=== PATIENT | female | born 1960 | race Caucasian/White ===

== ENCOUNTER → 2017-11-28 | Outpatient (CLI) | payer OTHER ==
[~2017-11-28] MED LIST: AZIT250T PO; CMBIN INH; EPI PEN; LAMO25TA PO; LITH600C PO; NAPR-1169 PO; POTA20TA16 PO; PRED20TA PO
--- NOTE | 2017-12-01 11:07 | PULMONARY FUNCTION TEST ---
Spirometry shows a normal forced vital capacity and FEV1 but with a mildly decreased FEV1/FVC ratio. This would be compatible with mild obstruction. Repeat study done following bronchodilator showed mild improvement in forced vital capacity and FEV1. Lung volumes show an increased FRC, RV and TLC consistent with obstruction and air trapping. Diffusion is normal at 82%.
== END | disposition home or self-care (01) ==
LOC: C.RC 09:09
PROVIDERS: ATTEND Internal Medicine Pulmonary Disease
DX: J44.9 Chronic obstructive pulmonary disease, unspecified (principal)

== ENCOUNTER → 2017-11-28 | Outpatient (CLI) | payer OTHER | END | disposition home or self-care (01) | LOC: C.LAB1850 11:48 | PROVIDERS: ATTEND Internal Medicine Pulmonary Disease | DX: R59.0 Localized enlarged lymph nodes (principal); R91.1 Solitary pulmonary nodule ==

== ENCOUNTER → 2018-01-08 | Outpatient (CLI) | payer OTHER ==
[~2018-01-08] MED LIST changes: +OPTIRAY 320 IV PRN; +POTA-639 PO; -POTA20TA16 PO
--- NOTE | 2018-01-08 13:13 | DIAGNOSTIC IMAGING REPORT ---
CT (CHEST) THORAX WITH CLINICAL HISTORY: 57 years-old Female presenting with R91.1 Solitary lung nodule R59.0 Mediastinal adenopathy R59.0 Karen. TECHNIQUE: Multidetector CT imaging of the chest was performed after the administration of intravenous contrast. IV contrast: 94 mL of Optiray 320. A dose lowering technique was used consistent with the principles of ALARA (as low as reasonably achievable). COMPARISON: Abdomen and pelvis CT from 10/10/2017. CT DOSE (mGy.cm): The estimated cumulative dose is 169.16 mGycm. FINDINGS: Formula Technician topogram: Unremarkable. On soft tissue windows, normal thyroid and thoracic inlet. Mildly prominent subcentimeter mediastinal lymph nodes in the precarinal region, likely reactive. No pathologically enlarged lymph nodes. Atherosclerosis of the aorta. Normal heart size. No pericardial or pleural effusion. Upper abdomen normal. On lung windows, subpleural polygonal solid 5 mm nodule in the lateral basal segment of the right lower lobe (series 4 image 211), unchanged. Minimal mosaic attenuation suggested at the lung apices, likely indicating small airways disease. No other focal infiltrate or nodule. Fat-containing Bochdalek hernias greater on the right. Central airways patent. On bone windows, degenerative changes of the spine. IMPRESSION: 1. Stable solid subpleural 5 mm nodule in the right lower lobe. Follow-up per Chun Society 2017 recommendations below. No other pulmonary nodule. No acute intrathoracic pathology. Please refer to below summary of Fleischner Society 2017 recommendations for follow-up of incidental CT nodules (H Oly et al. Guidelines for management of incidental pulmonary nodules detected on CT images: From the Fleischner Society 2017. Radiology 2017; 284: 228-243.) SOLID NODULES Single nodule; size < 6 mm * Low risk patients: No routine follow-up * High risk patients: Optional CT at 12 months Single nodule; size 6-8 mm * Low risk patients: CT at 6-12 months, then consider CT at 18-24 months * High risk patients: CT at 6-12 months, then at 18-24 months Single nodule; size > 8 mm * Either low or high risk patients: Considered CT at 3 months, PET/CT, or tissue sampling Multiple nodules; size < 6 mm * Low risk patients: No routine follow up * High risk patients: Optional CT at 12 months Multiple nodules; size 6-8 mm * Low risk patients: CT at 3-6 months, then consider CT at 18-24 months * High risk patients: CT at 3-6 months, then at 18-24 months Multiple nodules; size > 8 mm * Low risk patients: CT at 3-6 months, then consider at 18-24 months * High risk patients: CT at 3-6 months, then at 18-24 months SUBSOLID NODULES Single ground-glass nodule * Nodule size < 6 mm: No routine follow-up * Nodule size > or = 6 mm: CT at 6-12 months to confirm persistence, then CT every 2 years until 5 years Single part-solid nodule * Nodule size < 6 mm: No routine follow-up * Nodules size > or = 6 mm: CT at 3-6 months to confirm persistence. If unchanged and solid component remains < 6 mm, annual CT should be performed for 5 years Multiple nodules * Nodule size < 6 mm: CT at 3-6 months. If stable, consider CT at 2 and 4 years. * Nodules size > or = 6 mm: CT at 3-6 months. Subsequent management based on the most suspicious nodule(s) NOTE: 1) These guidelines apply to incidental nodules. These guidelines do NOT apply to patients younger than 35 years, immunocompromised patients, or patients with cancer. 2) Risk categories: * Low risk patients: Minimal or absent history of smoking and/or other known risk factors * High risk patients: History of smoking, exposure to other carcinogens, emphysema, fibrosis, upper lobe location, family history of lung cancer, etc. 2) If a nodule up to 8 mm is partly solid or is ground glass, further follow-up is required after 24 months to exclude possible slow growing adenocarcinoma. Electronically signed by: Sohail Harmon M.D. 01/08/2018 1:11 PM Dictated Date/Time: 01/08/2018 1:05 PM
== END | disposition home or self-care (01) ==
LOC: C.CTS 12:42
PROVIDERS: ATTEND Internal Medicine Pulmonary Disease
DX: R59.0 Localized enlarged lymph nodes (principal); R91.1 Solitary pulmonary nodule

== ENCOUNTER 2023-10-05 11:13 | Observation (INO) ==
--- NOTE | 2023-10-05 12:13 | CT Scan Report ---
CT SCAN OF THE BRAIN WITHOUT IV CONTRAST CLINICAL HISTORY: Ambulatory dysfunction. Change in mental status. COMPARISON STUDY: No priors. TECHNIQUE: Unenhanced axial CT scan of the brain is performed from the vertex to the skull base. A do se lowering technique was utilized adhering to the principles of ALARA. CT DOSE: 625.8 mGy.cm FINDINGS: Brain parenchyma: There is age-related involutional change noting minimal microangiopathic disease. T here is no hemorrhage, mass effect, or evidence of acute territorial ischemia by CT criteria. Oakley-wh ite matter differentiation is preserved. No extra-axial fluid collection is seen. Ventricles, sulci, cisterns: Prominent secondary to involutional change. Intracranial vasculature: There is atherosclerotic calcification of the cavernous carotid arteries. Calvarium: Unremarkable. Sinuses and mastoids: The visualized paranasal sinuses are clear. The mastoid air cells are well pneu matized. Orbits: The bony orbits are grossly intact. IMPRESSION: There is no hemorrhage, mass effect, or evidence of acute territorial ischemia by CT man leos. ACT 112: Negative or not required by law. Electronically signed by: Dagoberto Johns M.D. 10/05/2023 12:12 PM
--- NOTE | 2023-10-05 12:17 | XRay Report ---
XR chest 1V not portable HISTORY: weakness COMPARISON: Chest CT 03/05/2019. Chest x-ray 02/24/2007. FINDINGS: No pneumothorax. No pleural effusions. The heart is normal in size. Small left basilar line ar densities persist and favor subsegmental atelectasis or scarring. Otherwise, no new focal lung con solidations to suggest a pneumonia. No evidence for pulmonary edema. Emphysema again noted. No acute fractures. IMPRESSION: No significant change compared to the prior study. No acute process. Emphysema again noted. ACT 112: Negative or not required by law. Electronically signed by: Viral Barr M.D. 10/05/2023 12:16 PM
[2023-10-05 12:27] LABS: Basophils # (auto) 0.09 K/uL (0.00-0.20); Basophils % (auto) 1.2 %; Eosinophils # (auto) 0.34 K/uL (0.00-0.50); Eosinophils % (auto) 4.5 %; Hematocrit (blood only) 42.8 % (37.0-47.0); Hemoglobin 15.2 g/dl (12.0-16.0); Immature Granulocytes # (auto) 0.01 K/uL (0.01-0.20); Immature Granulocytes % (auto) 0.1 %; Lymphocytes # (auto) 1.98 K/uL (1.20-3.40); Lymphocytes % (auto) 26.2 %; Mean Corpuscular Hemoglobin 34.8 pg (25.0-34.0); Mean Corpuscular Hgb Conc 35.5 g/dL (32.0-36.0); Mean Corpuscular Volume 97.9 fL (80.0-100.0); Mean Platelet Volume 11.1 fL (9.4-12.4); Monocytes # (auto) 0.58 K/uL (0.11-0.59); Monocytes % (auto) 7.7 %; Neutrophils # (auto) 4.56 K/uL (1.40-6.50); Neutrophils % (auto) 60.3 %; Platelet Count 234 K/uL (130-400); RDW Coefficient of Variation 12.7 % (11.5-14.5); RDW Standard Deviation 45.8 fL (36.4-46.3); Red Blood Count 4.37 M/uL (4.20-5.40); White Blood Count 7.56 K/ul (4.8-10.8)
[2023-10-05 12:40] LABS: Alanine Aminotransferase 11 U/L (7-52); Albumin Level 4.5 gm/dl (3.4-5.0); Alkaline Phosphatase 54 U/L (34-104); Anion Gap 6 (3-11); Aspartate Aminotransferase 18 U/L (13-39); BUN Creatinine Ratio 15.7 (10-20); Bilirubin,Total 0.5 mg/dl (0.2-1.0); Blood Urea Nitrogen 11 mg/dl (6-23); Calcium 9.6 mg/dl (8.6-10.3); Carbon Dioxide 25 mmol/L (21-32); Chloride 102 mmol/L (98-107); Est GFR (African American) 108.4 ml/min; Est GFR (Non-African American) 93.5 ml/min; Globulin 2.3 gm/dl (2.5-4.0); Glucose 151 mg/dl (70-99(Fasting)); Magnesium 1.9 mg/dl (1.7-2.4); Potassium 3.5 mmol/L (3.5-5.1); Sodium 133 mmol/L (136-145); Total Protein 6.8 gm/dl (6.0-8.3)
[2023-10-05 12:47] LABS: Troponin I High Sensitivity 4.1 pg/ml (0-14)
[2023-10-05 12:52] LABS: Prothrombin Time 10.9 Seconds (9.0-12.0)
[2023-10-05 12:57] LABS: Thyroid Stimulating Hormone 0.967 uIu/ml (0.300-4.500)
--- NOTE | 2023-10-05 12:57 | Electrocardiogram Report ---
Test Reason : Blood Pressure : / mmHG Vent. Rate : 085 BPM Atrial Rate : 085 BPM P-R Int : 158 ms QRS Dur : 082 ms QT Int : 366 ms P-R-T Axes : 078 032 056 degrees QTc Int : 435 ms Normal sinus rhythm Incomplete right bundle branch block Borderline ECG When compared with ECG of 14-MAY-2019 13:14, No significant change was found Confirmed by Serjio Mullins ([id number]) on 10/05/2023 12:56:41 PM Referred By: Confirmed By:Serjio Mullins
[2023-10-05 14:18] LABS: Adenovirus PCR Not Detected (NotDetected); Bordetella parapertussis PCR Not Detected (NotDetected); Bordetella pertussis PCR Not Detected (NotDetected); Chlamydia pneumoniae PCR Not Detected (NotDetected); Coronavirus 229E PCR Not Detected (NotDetected); Coronavirus CoV-2 (COVID19)PCR Not Detected (NotDetected); Coronavirus HKU1 PCR Not Detected (NotDetected); Coronavirus NL63 PCR Not Detected (NotDetected); Coronavirus OC43PCR Not Detected (NotDetected); Human Metapneumovirus PCR Not Detected (NotDetected); Influenza A PCR Not Detected (NotDetected); Influenza B PCR Not Detected (NotDetected); Mycoplasma pneumoniae PCR Not Detected (NotDetected); Parainfluenza Virus 1 PCR Not Detected (NotDetected); Parainfluenza Virus 2 PCR Not Detected (NotDetected); Parainfluenza Virus 3 PCR Not Detected (NotDetected); Parainfluenza Virus 4 PCR Not Detected (NotDetected); Respiratory Syncytial VirusPCR Not Detected (NotDetected); Rhinovirus/Enterovirus PCR Not Detected (NotDetected)
--- NOTE | 2023-10-05 14:37 | Emergency Department Note ---
Impression & Plan Acute confusion ED Provider Note HISTORY OF PRESENT ILLNESS: Patient is a 63-year-old female presenting with intermittent episodes of confusion. Family helps provide history. Reports that for the last week and a half the patient has been having episodes in which she is significantly confused and talking to people that are not there. Family reports that she has been very off balance and stumbling throughout the house with these episodes. She was diagnosed with a urinary tract infection based on her symptomology and her PCP called in prescription for Keflex 10 days ago which she has completed. She had her lithium dosing adjusted 2 months ago and reportedly has had decline since then but the last week and a half has been worse. She denies any recent falls in the last 2 weeks. Denies any chest pain or shortness of breath. No fevers. Denies any abdominal pain, nausea or vomiting. No recent sick contact exposures. Family reports that the patient "just does not seem right." Patient reports that she sees people who are not there and seems to talk to them intermittently. She denies these visual hallucinations being threatening. ROS: as above PHYSICAL EXAM: Constitutional: Patient appears in no acute distress. HENT: Head: Normocephalic and atraumatic. Eyes: EOMI, PERRL Mouth/Throat: Mucous membranes moist. Neck: Trachea midline. Neck supple. Cardiovascular: RRR, No murmurs, rubs or gallops. Intact distal pulses. Pulmonary/Chest: No respiratory distress. Breath sounds clear and equal bilaterally. No wheezes or rales. Abdominal: Abdomen soft, no tenderness, rebound or guarding. Musculoskeletal: No edema, tenderness or deformity noted. Skin: Warm and dry. No rash, erythema, pallor or cyanosis Psychiatric: Appropriate mood and affect for situation. Neurological: Alert and keenly responsive. CN II-XII grossly intact, moving all extremities equally and fully. MDM: - Vitals signs stable. - History obtained via patient and patient's family. Patient presents with intermittent episodes of confusion. Family reports for the last week and a half the patient has been having episodes in which she is more confused and talking to people who are not there. Reports patient is very off balance and stumbling throughout the house with these episodes. Patient was recently treated for a UTI. No recent falls in the last 2 weeks. - Chronic conditions affecting care: ulcerative colitis; bipolar disorder - Differential diagnoses include, but are not limited to: UTI; pneumonia; CVA; intracranial hemorrhage; medication side effect - Order placed for continuous cardiac monitoring. At this time, monitor showed rate of 71 bpm with normal sinus rhythm, per my interpretation. - External medical records reviewed. - EKG interpreted by myself showed normal sinus rhythm. Rate 84 bpm. QTc 435. No acute ischemic changes. - Laboratory workup interpreted by myself showed normal WBC; stable electrolytes; normal lactate; normal troponin; normal ammonia; normal TSH; normal lithium level - CXR negative for pneumonia, per my interpretation. - UA negative for infection, but noted to have ketonuria. - Viral respiratory panel negative - CT head wo contras negative for acute intracranial pathology - UDS added. - Family expresses concern about patient's frequent and recurrent episodes of confusion and talking to people who are not there. - Discussion was had with professional healthcare representative about patient's case and need for observation - Hospitalist consulted for admission - Patient admitted to [facility] service for further evaluation and management. ASSESSMENT AND PLAN: Diagnosis: confusion Plan: admit Past Med/Surg History Medical History Bipolar disorder COPD (chronic obstructive pulmonary disease) inhaler prn Fibromyalgia IBS (irritable bowel syndrome) Memory changes Spinal stenosis Tardive dyskinesia Ulcerative colitis Surgical History History of bunionectomy of right great toe History of colonoscopy History of tonsillectomy History of tooth extraction all teeth S/P appendectomy S/P hysterectomy ADA BSO Family History Father Lung cancer Family history of diabetes mellitus Grandfather (Paternal) Family history of diabetes mellitus Other No family history of adverse response to anesthesia Social History Smoking Status: Current every day smoker Cigarettes Per Day: 20; Second Hand Exposure: Yes; Do You Dip or Chew Tobacco: No; Hx Alcohol Use: No Hx Substance Use: Yes Substance Use Type Other:: marijuana > 2-3 times per week Preferred Language: Icelandic Communication Ability: Effective Tie Inspector Required: No Beliefs That Will Affect Care: None Current Living Situation: Spouse Feels Safe at Home: Yes Assistive Devices: Denture - Upper and Denture - Lower Allergies Allergies Allergy/AdvReac Type Severity Reaction Status Date / Time cephalexin Allergy Mild "itchy Verified 10/05/23 14:26 bumps" clonazepam AdvReac Mild BLACKOUTS Verified 10/05/23 14:26 bee Allergy Severe Anaphylaxis Uncoded 10/05/23 14:26 Home Meds Home Medications Medication Instructions Recorded Confirmed albuterol sulfate 90 mcg/actuation 2 puff inhalation Q4 PRN Wheezing 10/05/23 10/05/23 aerosol inhaler bupropion HCl 300 mg 24 hr tablet, 300 mg PO DAILY 10/05/23 10/05/23 extended release fluticasone fur. 100 mcg-umeclid 1 ea inhalation DAILY 10/05/23 10/05/23 62.5 mcg-vilant 25 mcg inhalat.powder (Trelegy Ellipta) ketoconazole 2 % shampoo 1 applic topical DIRECTED 10/05/23 10/05/23 lithium carbonate 300 mg capsule 300 mg PO TID 10/05/23 10/05/23 lorazepam 0.5 mg tablet 0.5 mg PO TID PRN Anxiety 10/05/23 10/05/23 propranolol 10 mg tablet 10 mg PO BID 10/05/23 10/05/23 sennosides 8.6 mg-docusate sodium 2 - 3 tab PO HS PRN Constipation 10/05/23 10/05/23 50 mg tablet (Senexon-S) trazodone 50 mg tablet 50 mg PO HS 10/05/23 10/05/23 Results & Data (ED) Vital Signs Vital Signs - 24 hr 10/05/23 11:13 10/05/23 11:31 10/05/23 13:30 Temperature 36.5 C Temperature Source Temporal Artery Scan Pulse Rate 88 76 Pulse Rate [Apical] Pulse Rhythm Regular Pulse Rhythm [Apical] Pulse Strength [Apical] Respiratory Rate 20 20 Respiratory Effort / Characteristics Respiratory Depth Respiratory Pattern Blood Pressure 121/72 Blood Pressure [Left Arm] Blood Pressure Mean 88 Blood Pressure Mean [Left Arm] Blood Pressure Position [Left Arm] Pulse Oximetry 97 98 96 Oxygen Delivery Method Room Air Room Air Room Air Sepsis Recent Fever Within 48 Hours No Sepsis New/Unexplained Change in Mental Status N/A Sepsis Action Taken by Nursing No Action Required 10/05/23 13:30 10/05/23 16:11 Temperature Temperature Source Pulse Rate 71 Pulse Rate [Apical] 78 Pulse Rhythm Pulse Rhythm [Apical] Regular Pulse Strength [Apical] Normal Respiratory Rate 20 Respiratory Effort / Characteristics Non-Labored Spontaneous Respiratory Depth Normal Respiratory Pattern Regular Blood Pressure Blood Pressure [Left Arm] 131/75 Blood Pressure Mean Blood Pressure Mean [Left Arm] 93 Blood Pressure Position [Left Arm] Sitting Pulse Oximetry 97 Oxygen Delivery Method Room Air Sepsis Recent Fever Within 48 Hours Sepsis New/Unexplained Change in Mental Status Sepsis Action Taken by Nursing Laboratory Data 10/05/23 12:00 10/05/23 12:00 Lab Results 10/05/23 10/05/23 10/05/23 Range/Units 12:00 14:18 14:56 WBC 7.56 (4.8-10.8) K/ul RBC 4.37 (4.20-5.40) M/uL Hgb 15.2 (12.0-16.0) g/dl Hct 42.8 (37.0-47.0) % MCV 97.9 (80.0-100.0) fL MCH 34.8 H (25.0-34.0) pg MCHC 35.5 (32.0-36.0) g/dL RDW Std Deviation 45.8 (36.4-46.3) fL RDW Coeff of Celi 12.7 (11.5-14.5) % Plt Count 234 (130-400) K/uL MPV 11.1 (9.4-12.4) fL Immature Gran % (Auto) 0.1 % Neut % (Auto) 60.3 % Lymph % (Auto) 26.2 % Kane % (Auto) 7.7 % Eos % (Auto) 4.5 % Baso % (Auto) 1.2 % Neut # (Auto) 4.56 (1.40-6.50) K/uL Lymph # (Auto) 1.98 (1.20-3.40) K/uL Kane # (Auto) 0.58 (0.11-0.59) K/uL Eos # (Auto) 0.34 (0.00-0.50) K/uL Baso # (Auto) 0.09 (0.00-0.20) K/uL Immature Gran # (Auto) 0.01 (0.01-0.20) K/uL PT 10.9 (9.0-12.0) Seconds INR 1.0 (0.9-1.1) Sodium 133 L (136-145) mmol/L Potassium 3.5 (3.5-5.1) mmol/L Chloride 102 (98-107) mmol/L Carbon Dioxide 25 (21-32) mmol/L Anion Gap 6 (3-11) BUN 11 (6-23) mg/dl Creatinine 0.70 (0.6-1.2) mg/dl Est Cr Clr Drug Dosing Not Reportable Est GFR ( Amer) 108.4 ml/min Est GFR (Non-Af Amer) 93.5 ml/min BUN/Creatinine Ratio 15.7 (10-20) Glucose 151 H (70-99(Fasting)) mg/dl Lactate 1.0 (0.4-2.0) mmol/L Calcium 9.6 (8.6-10.3) mg/dl Magnesium 1.9 (1.7-2.4) mg/dl Total Bilirubin 0.5 (0.2-1.0) mg/dl AST 18 (13-39) U/L ALT 11 (7-52) U/L Alkaline Phosphatase 54 (34-104) U/L Ammonia 29.0 (18-72) umol/L Troponin I High Sens 4.1 (0-14) pg/ml Total Protein 6.8 (6.0-8.3) gm/dl Albumin 4.5 (3.4-5.0) gm/dl Globulin 2.3 L (2.5-4.0) gm/dl Albumin/Globulin Ratio 2.0 (0.9-2) TSH 0.967 (0.300-4.500) uIu/ml Urine Color Yellow Urine Appearance Clear (Clear) Urine pH 6.5 (4.5-7.5) Ur Specific [place] 1.012 (1.000-1.030) Urine Protein Negative (Negative) Urine Glucose (UA) Negative (Negative) Urine Ketones Trace H (Negative) Urine Blood Negative (Negative) Urine Nitrite Negative (Negative) Urine Bilirubin Negative (Negative) Urine Urobilinogen Negative (Negative) Ur Leukocyte Esterase Negative (Negative) [place] 1.0 (0.6-1.2) mmol/L Adenovirus (PCR) Not Detected (NotDetected) B. pertussis DNA (PCR) Not Detected (NotDetected) B.parapertussis DNA PCR Not Detected (NotDetected) C. pneumoniae DNA (PCR) Not Detected (NotDetected) Coronavirus OC43 (PCR) Not Detected (NotDetected) Coronavirus HKU1 (PCR) Not Detected (NotDetected) Coronavirus 229E (PCR) Not Detected (NotDetected) SARS-CoV-2 (PCR) Not Detected (NotDetected) Coronavirus NL63 (PCR) Not Detected (NotDetected) Human Metapneumovir PCR Not Detected (NotDetected) Influenza Type A (PCR) Not Detected (NotDetected) Influenza Type B (PCR) Not Detected (NotDetected) M. pneumoniae (PCR) Not Detected (NotDetected) Parainfluenza 1 (PCR) Not Detected (NotDetected) Parainfluenza 2 (PCR) Not Detected (NotDetected) Parainfluenza 3 (PCR) Not Detected (NotDetected) Parainfluenza 4 (PCR) Not Detected (NotDetected) RSV (PCR) Not Detected (NotDetected) Entero/Rhino (PCR) Not Detected (NotDetected) Imaging Data Radiologist's Impression: Chest X-Ray 10/05/23 11:18 XR chest 1V not portable HISTORY: weakness COMPARISON: Chest CT 03/05/2019. Chest x-ray 02/24/2007. FINDINGS: No pneumothorax. No pleural effusions. The heart is normal in size. Small left basilar linear densities persist and favor subsegmental atelectasis or scarring. Otherwise, no new focal lung consolidations to suggest a pneumonia. No evidence for pulmonary edema. Emphysema again noted. No acute fractures. IMPRESSION: No significant change compared to the prior study. No acute process. Emphysema again noted. ACT 112: Negative or not required by law. Electronically signed by: Viral Barr M.D. 10/05/2023 12:[address] 10/05/23 11:18 CT SCAN OF THE BRAIN WITHOUT IV CONTRAST CLINICAL HISTORY: Ambulatory dysfunction. Change in mental status. COMPARISON STUDY: No priors. TECHNIQUE: Unenhanced axial CT scan of the brain is performed from the vertex to the skull base. A dose lowering technique was utilized adhering to the principles of ALARA. CT DOSE: 625.8 mGy.cm FINDINGS: Brain parenchyma: There is age-related involutional change noting minimal microangiopathic disease. There is no hemorrhage, mass effect, or evidence of acute territorial ischemia by CT criteria. Oakley-white matter differentiation is preserved. No extra-axial fluid collection is seen. Ventricles, sulci, cisterns: Prominent secondary to involutional change. Intracranial vasculature: There is atherosclerotic calcification of the cavernous carotid arteries. Calvarium: Unremarkable. Sinuses and mastoids: The visualized paranasal sinuses are clear. The mastoid air cells are well pneumatized. Orbits: The bony orbits are grossly intact. IMPRESSION: There is no hemorrhage, mass effect, or evidence of acute territorial ischemia by CT criteria. ACT 112: Negative or not required by law. Electronically signed by: Dagoberto Johns M.D. 10/05/2023 12:12 PM Discharge Plan Visit Data Chief Complaint: Altered Mental Status Stated Complaint: UNSTABLE, CONFUSION ED Provider: Ana Luisa Higginbotham Discharge Problem: Acute confusion Forms Stand Alone Forms: My [facility] Prescriptions Prescriptions: No Action ketoconazole 2 % shampoo 1 applic TOPICAL DIRECTED trazodone 50 mg tablet 50 mg PO HS lorazepam 0.5 mg tablet 0.5 mg PO TID PRN (Reason: Anxiety) lithium carbonate 300 mg capsule 300 mg PO TID albuterol sulfate 90 mcg/actuation HFA aerosol inhaler 2 puff INHALATION Q4 PRN (Reason: Wheezing) bupropion HCl 300 mg tablet extended release 24 hr 300 mg PO DAILY Trelegy Ellipta 100-62.5-25 mcg blister with device 1 ea INHALATION DAILY propranolol 10 mg tablet 10 mg PO BID sennosides-docusate sodium [Senexon-S] 8.6-50 mg tablet 2 - 3 tab PO HS PRN (Reason: Constipation) Referrals Referrals: Vic Carl PA-C [Primary Care Provider] -
[2023-10-05 14:51] LABS: Appearance Urine Clear (Clear); Bilirubin Urine Negative (Negative); Blood Urine Negative (Negative); Color Urine Yellow; Glucose Urine UA Negative (Negative); Ketones Urine Trace (Negative); Leukocyte Esterase Urine Negative (Negative); Nitrite Urine Negative (Negative); Protein Urine Negative (Negative); Specific Gravity Urine 1.012 (1.000-1.030); Urobilinogen Urine Negative (Negative); pH Urine 6.5 (4.5-7.5)
--- NOTE | 2023-10-05 16:13 | History & Physical Report ---
Date of Service October 05, 2023 Assessment & Plan (1) Episodic confusion: Plan: This is a 63 y/o female with bipolar disorder, PTSD, mild COPD, fibromyalgia, and other history as outlined who presented to the ED today for evaluation of episodes of confusion and gait imbalance over the last 8 weeks but worsening since a fall on two weeks ago. Pt reports her lithium dose was adjusted two months ago - level today WNL. She was recently treated for UTI with 10 day course of cephalexin and course of prednisone for scalp itching but neither of these medication courses seem to correspond with onset of patient's symptoms. Initial work-up in the ED including ammonia level, TSH, CT head, UA, CBC, BMP was negative for potential etiology. Lyme testing pending. Discussed with ED provider addition of urine tox screen in view of history of substance use, although pt denies today. - Observe on med telemetry - MRI brain to r/o prior CVA/vascular dementia as cause of symptoms - Consult neurology - pt saw [facility] [place] for memory issues - Consult psychiatry for recommendations on pt's current regimen, potential contribution of known psychiatric conditions to current symptoms - Check B12, B1, B6, folate levels - Add thiamine supplement empirically - Blood cultures to complete infectious work-up (2) Gait disturbance: Plan: Fall precautions PT/OT evaluations (3) Bipolar disorder: Plan: Continue outpatient meds for now - psych consult pending (4) COPD (chronic obstructive pulmonary disease): Plan: Chronic, stable - continue inhaler Plan Pt seen and reviewed with collaborating physician, Dr. Banerjee. Plan of care discussed and as outlined above. Code Status: Full code DVT Prophylaxis: Ridge Barron PA-C History of Present Illness Chief Complaint: Episodes of confusion Primary Care Provider: Vic Carl This is a 63 y/o female with bipolar disorder, PTSD, mild COPD, fibromyalgia, and other history as outlined who presented to the ED today for evaluation of episodes of confusion and gait imbalance over the last 8 weeks but worsening since a fall on two weeks ago. History obtained from patient and fiance at the bedside. About eight weeks ago, pt started with episodes of confusion and gait imbalance. Pt reports these feel similar to prior episodes of robert but her fiance states that they are different in that during manic episodes, she is typically still coherent, can answer questions, and does not have trouble with her balance. Pt reports having no memory of the current episodes of confusion that she has been having, so she is not entirely sure of what is occurring. Episodes seem to start mid to late morning and last till later afternoon or dinner before resolving. Until the last few weeks, they only happened every 1-2 weeks, but since she fell on [place], the episodes have been increasing in frequency and severity. She had an episode yesterday that was particularly severe. This morning, her fiance's mom came to check on her around 10 am, and she was once again confused to they brought her to the ED for evaluation. Today's episode seemed to clear up around 1-2 pm. Her fiance describes that pt will be doing something and then won't remember what she's doing, will stare off into space, become off balance, and will be unable to answer a question coherently. At times, they have also seen her talking to people who are not there although she denies overt visual hallucinations to me. She reports her lithium dose was adjust about two months ago. She also notes suprapubic discomfort and dysuria about two weeks ago - she was treated empirically with a 10 day course of Keflex with improvement in the urinary symptoms. She was also recently on a course of prednisone for scalp itching, which she finished three days ago. She reports rare EtOH, denies recreational substances or use of medical marijuana. She admits to a poor diet, preferring sweets and fast food, minimal consumption of fruits and vegetables. Allergies Allergy/AdvReac Type Severity Reaction Status Date / Time cephalexin Allergy Mild "itchy Verified 10/05/23 14:26 bumps" clonazepam AdvReac Mild BLACKOUTS Verified 10/05/23 14:26 bee Allergy Severe Anaphylaxis Uncoded 10/05/23 14:26 Home Medications Medication Instructions Recorded Confirmed Type albuterol sulfate 90 mcg/actuation 2 puff inhalation Q4 PRN Wheezing 10/05/23 10/05/23 History aerosol inhaler bupropion HCl 300 mg 24 hr tablet, 300 mg PO DAILY 10/05/23 10/05/23 History extended release fluticasone fur. 100 mcg-umeclid 1 ea inhalation DAILY 10/05/23 10/05/23 History 62.5 mcg-vilant 25 mcg inhalat.powder (Trelegy Ellipta) ketoconazole 2 % shampoo 1 applic topical DIRECTED 10/05/23 10/05/23 History lithium carbonate 300 mg capsule 300 mg PO TID 10/05/23 10/05/23 History lorazepam 0.5 mg tablet 0.5 mg PO TID PRN Anxiety 10/05/23 10/05/23 History propranolol 10 mg tablet 10 mg PO BID 10/05/23 10/05/23 History sennosides 8.6 mg-docusate sodium 2 - 3 tab PO HS PRN Constipation 10/05/23 10/05/23 History 50 mg tablet (Senexon-S) trazodone 50 mg tablet 50 mg PO HS 10/05/23 10/05/23 History Past Med/Surg History Medical History (Updated 10/05/23 @ 20:41 by Ivelisse Barron PA-C) Solitary lung nodule Ulcerative colitis Fibromyalgia Tardive dyskinesia Memory changes IBS (irritable bowel syndrome) COPD (chronic obstructive pulmonary disease) inhaler prn Bipolar disorder Spinal stenosis Surgical History History of bunionectomy of right great toe History of colonoscopy History of tooth extraction all teeth History of tonsillectomy S/P appendectomy S/P hysterectomy ADA BSO Family History Father Lung cancer Family history of diabetes mellitus Grandfather (Paternal) Family history of diabetes mellitus Other No family history of adverse response to anesthesia Social History (Updated 10/05/23 @ 20:36 by Ivelisse Barron PA-C) Smoking Status: Current every day smoker Cigarettes Per Day: 20; Second Hand Exposure: Yes; Do You Dip or Chew Tobacco: No; Hx Alcohol Use: Yes Alcohol Intake Frequency: Monthly or Less Hx Substance Use: Yes Substance Use Type Other:: hx marijauna, remote crack cocaine but denies at present Preferred Language: Upper Sorbian Communication 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 Results & Data Results & Data Vital Signs (Past 12 Hours) Vital Signs Temp Pulse Pulse Resp BP BP Pulse Ox 10/05/23 16:11 71 10/05/23 13:30 78 20 131/75 97 10/05/23 13:30 76 20 96 10/05/23 11:31 36.5 C 88 20 121/72 98 10/05/23 11:13 97 O2 Del Method 10/05/23 16:11 10/05/23 13:30 Room Air 10/05/23 13:30 Room Air 10/05/23 11:31 Room Air 10/05/23 11:13 Room Air Laboratory Results Laboratory Results - last 24 hr 10/05/23 10/05/23 10/05/23 12:00 14:18 14:56 WBC 7.56 RBC 4.37 Hgb 15.2 Hct 42.8 MCV 97.9 MCH 34.8 H MCHC 35.5 RDW Std Deviation 45.8 RDW Coeff of Celi 12.7 Plt Count 234 MPV 11.1 Immature Gran % (Auto) 0.1 Neut % (Auto) 60.3 Lymph % (Auto) 26.2 [place] % (Auto) 7.7 Eos % (Auto) 4.5 Baso % (Auto) 1.2 Neut # (Auto) 4.56 Lymph # (Auto) 1.98 [place] # (Auto) 0.58 Eos # (Auto) 0.34 Baso # (Auto) 0.09 Immature Gran # (Auto) 0.01 PT 10.9 INR 1.0 Sodium 133 L Potassium 3.5 Chloride 102 Carbon Dioxide 25 Anion Gap 6 BUN 11 Creatinine 0.70 Est Cr Clr Drug Dosing Not Reportable Est GFR ( Amer) 108.4 Est GFR (Non-Af Amer) 93.5 BUN/Creatinine Ratio 15.7 Glucose 151 H Lactate 1.0 Calcium 9.6 Magnesium 1.9 Total Bilirubin 0.5 AST 18 ALT 11 Alkaline Phosphatase 54 Ammonia 29.0 Troponin I High Sens 4.1 Total Protein 6.8 Albumin 4.5 Globulin 2.3 L Albumin/Globulin Ratio 2.0 TSH 0.967 Urine Color Yellow Urine Appearance Clear Urine pH 6.5 Ur Specific [place] 1.012 Urine Protein Negative Urine Glucose (UA) Negative Urine Ketones Trace H Urine Blood Negative Urine Nitrite Negative Urine Bilirubin Negative Urine Urobilinogen Negative Ur Leukocyte Esterase Negative [place] 1.0 Adenovirus (PCR) Not Detected B. pertussis DNA (PCR) Not Detected B.parapertussis DNA PCR Not Detected Lyme Disease IgG Ab Pending Lyme Disease IgM Ab Pending C. pneumoniae DNA (PCR) Not Detected Coronavirus OC43 (PCR) Not Detected Coronavirus HKU1 (PCR) Not Detected Coronavirus 229E (PCR) Not Detected SARS-CoV-2 (PCR) Not Detected Coronavirus NL63 (PCR) Not Detected Human Metapneumovir PCR Not Detected Influenza Type A (PCR) Not Detected Influenza Type B (PCR) Not Detected M. pneumoniae (PCR) Not Detected Parainfluenza 1 (PCR) Not Detected Parainfluenza 2 (PCR) Not Detected Parainfluenza 3 (PCR) Not Detected Parainfluenza 4 (PCR) Not Detected RSV (PCR) Not Detected Entero/Rhino (PCR) Not Detected Diagnostic Findings Chest X-Ray 10/05/23 11:18 XR chest 1V not portable HISTORY: weakness COMPARISON: Chest CT 03/05/2019. Chest x-ray 02/24/2007. FINDINGS: No pneumothorax. No pleural effusions. The heart is normal in size. Small left basilar linear densities persist and favor subsegmental atelectasis or scarring. Otherwise, no new focal lung consolidations to suggest a pneumonia. No evidence for pulmonary edema. Emphysema again noted. No acute fractures. IMPRESSION: No significant change compared to the prior study. No acute process. Emphysema again noted. ACT 112: Negative or not required by law. Electronically signed by: Viral Barr M.D. 10/05/2023 12:[address] 10/05/23 11:18 CT SCAN OF THE BRAIN WITHOUT IV CONTRAST CLINICAL HISTORY: Ambulatory dysfunction. Change in mental status. COMPARISON STUDY: No priors. TECHNIQUE: Unenhanced axial CT scan of the brain is performed from the vertex to the skull base. A dose lowering technique was utilized adhering to the principles of ALARA. CT DOSE: 625.8 mGy.cm FINDINGS: Brain parenchyma: There is age-related involutional change noting minimal microangiopathic disease. There is no hemorrhage, mass effect, or evidence of acute territorial ischemia by CT criteria. Oakley-white matter differentiation is preserved. No extra-axial fluid collection is seen. Ventricles, sulci, cisterns: Prominent secondary to involutional change. Intracranial vasculature: There is atherosclerotic calcification of the cavernous carotid arteries. Calvarium: Unremarkable. Sinuses and mastoids: The visualized paranasal sinuses are clear. The mastoid air cells are well pneumatized. Orbits: The bony orbits are grossly intact. IMPRESSION: There is no hemorrhage, mass effect, or evidence of acute territorial ischemia by CT criteria. ACT 112: Negative or not required by law. Electronically signed by: Dagoberto Johns M.D. 10/05/2023 12:12 PM Code Status & VTE Plan VTE Prophylaxis Plan VTE Prophylaxis will be ordered: Yes Supervising Physician Co-Signing Physician Notes Patient seen and examined independently. Discussed with Above provider Patient is a 63-year-old female with past medical history of COPD, bipolar disorder was brought to the ED by her fianc for episodes of confusion and gait imbalance. Patient was alert oriented x 3 at the time of the interview. She denied headache, dizziness, visual changes, chest pain, abdominal pain or urinary symptoms. Patient denies any illicit drug use. U tox for MDMA positive; however patient is also on bupropion Lab work shows mild hyponatremia Vitamin B-12 borderline deficiency On physical examination; Constitutional: Alert oriented x 3, flat affect Eyes: Bruise under left eye Respiratory: normal respiratory effort, lungs clear to auscultation, no wheeze, rales, rhonchi. Normal insp/exp effort, no accessory muscle use Cardiovascular: RRR, no murmur, no edema Vessels: no JVD or carotid bruit Chest: normal inspection of chest Abdomen: normal bowel sounds, soft, nontender, no hepatosplenomegaly Musculoskeletal: no cyanosis or clubbing, extremities motor strength 5/5 Skin: no rashes, warm and dry normal turgor Neurologic: PERRL, EOMI, accommodation nl, no face palsy, no dysarthria CN's II- XI intact bilaterally and moves all extremities Assessment/plan Gait imbalance/confusion Will obtain MRI brain to rule out vascular dementia/stroke contributing to the symptoms. Appreciate neurology's input. Patient had seen [facility] neurology in the past. Will also appreciate psych input regarding medication adjustment. Start vitamin B12 supplement, thiamine PT OT evaluation (3) Bipolar disorder Active/Remission status: remission status unspecified Qualified Code(s): F31.9 - Bipolar disorder, unspecified (4) COPD (chronic obstructive pulmonary disease) COPD type: unspecified COPD Qualified Code(s): J44.9 - Chronic obstructive pulmonary disease, unspecified
[2023-10-05 16:14] LABS: Lyme Ab IgG w/WB Rflx Negative (Negative); Lyme Ab IgM w/WB Rflx Negative (Negative)
--- OUTSIDE RECORDS SUMMARY | 2023-10-05 17:49 | External Medical Summary | Continuity of Care Document ---
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 Operator Name Role Phone [facility] Care Team Information Site Planner [phone] Vic Carl PA-C Care Team Information Rec eiver [phone] [place] Trouble Dispatcher Care Team Information Receive r [phone] Problems Active Problems Provider Date Medial epicondylitis Vic Carl PA-C Ons et: 07/26/2017 Polyneuropathy Vic Carl PA-C Onset: 1 09/25/2016 Polyosteoarthritis, unspecified Vic gonzalez PA-C Onset: 07/26/2017 Manic bipolar I disorder Vic Carl PA-C Onset: 07/26/2017 Urinary tract infectious disease Vic posada PA-C Onset: 09/29/2017 C/O - a back symptom Vic Carl PA-C Ons et: 09/29/2017 Enthesopathy of hip region [place] Onset: 09/29/2017 Lymphadenopathy Vic Carl PA-C Onset: 0 10/11/2017 Solitary nodule of lung Vic Carl PA-C Onset: 03/13/2018 Chronic obstructive lung disease Vic posada PA-C Onset: 03/13/2018 Low back pain Vic Carl PA-C Onset: 0 03/13/2018 Lateral epicondylitis Vic Carl PA-C On set: 06/19/2018 Microscopic colitis Vic Carl PA-C Onse t: 06/19/2018 Acute bronchitis Vic Carl PA-C Onset: 08/02/2018 Pneumonia Vic Carl PA-C Onset: 1 10/02/2017 Fibromyalgia Vic Carl PA-C Onset: 1 10/02/2017 Mixed hyperlipidemia Vic Carl PA-C Ons et: 02/19/2019 Stomatitis Vic Carl PA-C Onset: 0 02/19/2019 Laceration of intrinsic musc le, fascia and tendon of right middle finger at wrist and hand level, initial encounter Vic Carl PA-C Onset: 04/18/2019 Candidiasis of mouth Vic Carl PA-C Ons et: 04/22/2019 Atopic dermatitis Vic Carl PA-C Onset: 04/22/2019 Sciatica Vic Carl PA-C Onset: 0 06/11/2019 Nausea Vic Carl PA-C Onset: 0 06/11/2019 Irritable bowel syndrome yonis racterized by alternating bowel habit Vic Carl PA-C Onset: 06/11/2019 Sleep dysfunction with arousal disturbance Carli Carl PA-C Onset: 10/14/2019 Lichen planus Vic Carl PA-C Onset: 0 11/18/2019 Social History Type Date Description Comments Sex Unknown Tobacco Use Reviewed: 08/22/23 Never Smoked Cigarette s Tobacco Use Reviewed: 08/22/23 Never Smoked Cigars Tobacco Use Reviewed: 08/22/23 Never Smoked A Pipe Smoking Status Reviewed: 08/22/23 Never Smoked A Pipe Smokeless Tobacco 08/22/2023 Never Used Smokeless To bacco ETOH Use Denies alcohol use Recreational Drug Use 10/16/2017 Formerly u sed Marijuana sporadically Allergies and adverse reactions Active Allergies Criticality Reaction | Severity Comments Date Cephalexin Unable to assess criticality 07/25/2017 Medications Active Medications SIG Qnty Indications Order ing Provider Date Aksfbzpxcxp975bw Tablets 1 tablet by mouth two times a day for 10 days 20tabs Rivka Wright MD 08/22/2023 - 09/01/2023 Propranolol YFL97al Tablets Take one tab twice daily 180tabs G25.71 Rivka Wright MD 05/22/2023 Trazodone RTR72qa Tablets take 1 tablet by mouth everyday at bedtime 90tabs Rivka Wright MD 05/22/2023 Ketoconazole2% Shampoo apply ketoconazole shampoo 3 days in a row, leaving on for 5 min then rinse. repeat weekly. 360ml Rivka Wright MD 05/22/2023 Awdjbd9hu TBPK take as directed in pack 21units M25.551 Rivka Wright MD 05/22/2023 Bupropion Hydrochloride ER (XL)300mg Tablets ER 24HR Take 1 Tablet By Mouth Every Day - 90tabs Rivka Wright MD 05/22/2023 Uvpovhtorev5ot Tablets Dispers 1 by mouth q6 hours as needed nausea 45tabs Rivka Wright MD 02/06/2023 Vhajzsozql47jj Capsules 1 by mouth twice a day for pain/neuropathy 180caps G63 Rivka Wright MD 02/06/2023 Xcnpidolearp7hh Tablets 1 tab by mouth daily 90tabs Rivka Wright MD 08/04/2022 Albuterol Sulfate UDW530(90Base) mcg/Act Aerosol Inahle 2 Puffs Every 4-6 Hours as Needed Wheezing 18units J44.9 Trip Jarvis MD 06/13/2022 Trelegy Fxhydwr872-06.5-25mc g/Inh Aerosol take 1 puff by mouth every day 60Disk Rivka Wright MD 05/27/2022 Senexon-S8.6-50mg Tablets Take 2-3 Tablets AT Bedtime as Needed 90tabs Rivka Wright MD 04/12/2022 Lorazepam0.5mg Tablets Take 1 Tablet By Mouth Three Times A Day as Needed 90tabs Rivka Wright MD 06/20/2021 Twtfdrubq703zi Tablets take one tablet by mouth three times daily as needed - take with food 270tabs M50.10 Rivka Wright MD 06/08/2021 Atorvastatin Djpfrzc69rm Tablets Take 1 Tablet By Mouth Every Evening 90tabs Lucian Ocampo JR, MD 11/21/2018 [place] Coeuwqigq342wv Capsules take 1 capsule by mouth three times daily 90caps Rivka Wrihgt MD History Medications Propranolol EPD61yo Tablets Take 1 Tablet By Mouth Twice A Day 60tabs G25.71 Rivka Wright MD 05/22/2023 - 05/22/2023 Propranolol WAI93bz Tablets 1 by mouth twice daily as needed 180tabs G25.71 Rivka Wright MD 04/16/2023 - 05/22/2023 Propranolol ABI25vh Tablets Take 1 Tablet By Mouth Twice A Day 60tabs G25.71 Rivka Wright MD 04/12/2023 - 04/16/2023 Medications Administered in Office Medication SIG Qnty Indications Ordering Provider Date Injection Kenalog 10 MG ND [id number] Kera Lion-C 08/02/2018 Celestone Soluspan 3 MG 6MG/MLInjection Vic Carl PA-C 0 06/19/2018 Injection Kenalog 10 MG NDC [id number] Kera Lion A-C 07/26/2017 Injection Dexamethasone Sodium Phosphate, 1 MGInjection Vic Carl PA-C 1109/2016 Immunizations CPT Code Status Date Vaccine Lot # [id number] Given 07/25/2022 Influenza Virus Vaccine, Quadrivalent (Cciiv4), Derived From Cell [id number] Given 08/12/2021 Influenza Virus Vaccine, Quadrivalent (Cciiv4), Derived From 5 Given 02/17/2021 Moderna Sars-Co v-2 (Cov-19) vacc,100 mcg/ 0.5 mL 12Y+EMR Doc Only [id number] 83686 Given 01/20/2021 Moderna Sars-Co v-2 (Cov-19) vacc,100 mcg/ 0.5 mL 12Y+EMR Doc Only [id number] U-FLU Given 07/06/2020 Influenza,Unspecified 13418 Given 07/06/2020 Influenza Virus Vaccine, Quadrivalent (Cciiv4), Derived From 3 Given 07/26/2017 Influenza Virus Vaccine, Quadrivalent, Im Use U-FLU Given 07/26/2017 Influenza,Unspecified U-FLU Given 06/26/2016 Influenza,Unspecified U-FLU Given 2013 Influenza,Unspecified 79521 Given 2013 Influenza Vacci ne-Administered at another facility U-FLU Given 10/29/2012 Influenza,Unspecified 88072 Given 10/29/2012 Influenza Vacci ne-Administered at another facility 12228 Given 10/29/2012 Pneumococcal Vaccine/Pneu movax 23 88168 Given 02/23/2012 Pneumococcal Conjugate, P revnar 7 EMR Use Only U-FLU Given 07/26/2011 Influenza,Unspecified 35161 Given 07/26/2011 Influenza Vacci ne-Administered at another facility 12112 Given 08/15/2010 Tdap (Tetanus, diphtheria & acel. pertussis) Adacel or Boostrix 56046 Given 09/17/2008 TB Intradermal Test 49452 Given 09/03/2008 Influenza Vacci ne-Administered at another facility U-FLU Given 09/03/2008 Influenza,Unspecified 84945 Given 09/29/2006 Influenza Vacci ne-Administered at another facility U-FLU Given 09/29/2006 Influenza,Unspecified U-FLU Given 08/29/2005 Influenza,Unspecified 44472 Given 08/29/2005 Influenza Vacci ne-Administered at another facility 53783 Refused 04/27/2022 Pneumococcal Conjugate-Pr evnar 20 25477 Refused 04/27/2022 Shingrix 87767 Refused 04/27/2022 Influenza Virus Vaccine, Quadrivalent (Cciiv4), Derived From Cell [id number] Refused 04/27/2022 Moderna Covid-1 9 Vaccine 50mcg Booster-EMR Doc Only [id number] Refused 10/14/2019 Influenza Virus Vaccine, Quadrivalent (Cciiv4), Derived From Cell [id number] Refused 11/20/2018 Shingrix 08596 Refused 11/20/2018 Influenza Virus Vaccine, Quadrivalent (Cciiv4), Derived From Cell Vital Signs Date Vital Result Comment 08/22/2023 10:02am BP Systolic 120 mmHg BP Diastolic 76 mmHg Body Temperature 97.6 F Heart Rate 76 /min Weight 125.12 lb Weight 56.757 kg Height 63 inches 5'3" BMI (Body Mass Index) 22.2 kg/m2 O2 % BldC Oximetry 96 % [place] Body Weight 115 lb 05/22/2023 1:33pm BP Systolic 122 mmHg BP Diastolic 82 mmHg Body Temperature 97.8 F Heart Rate 88 /min Weight 124.00 lb Weight 56.246 kg Height 63 inches 5'3" BMI (Body Mass Index) 22.0 kg/m2 O2 % BldC Oximetry 96 % [place] Body Weight 115 lb Results Test Acquired Date Facility Test Result H/L [place] Laboratory test finding 08/22/2023 [facility] [address] [facility] [place] [address] [phone] [place] 0.8 mmol/L Normal 0.6-1.2 Clinical PDF Report [id number] SEE IMAGE CBC W/Diff 08/22/2023 [facility] [address] [place], [place] [id number] [phone] WBC 7.3 10^3/M3 3.1-9.2 RBC 4.20 10^6/M3 3.70-5.50 HGB 14.3 GR/DL 11.5-16.1 HCT 42.5 % 34.5-47.8 MCV 101.2 CUMICR High 82.6-95.8 MCH 34.2 PICOGR High 27.9-32.9 MCHC 33.8 % 32.6-35.4 RDW 13.7 % 11.4-14.6 PLT 276 10^3/M3 140-350 MPV 9.7 CUMICR 7.0-10.6 %Neut 55.5 % 40.0-75.0 %Lymph 29.6 % 17.0-45.0 %[place] 6.2 % 1.0-11.0 %Eos 6.3 % High 0.0-6.0 %Baso 2.4 % High 0.0-2.0 #Neut 4.0 10^3/M3 1.5-8.0 #Lymph 2.1 10^3/M3 0.8-3.2 #[place] 0.5 10^3/M3 0.0-0.8 #Eos 0.5 10^3/m3 High 0.0-0.4 #Baso 0.2 10^3/m3 0.0-0.2 Comp. Met 08/22/2023 [facility] [address] [place], [place] [id number] [phone] Glucose 89 mg/dL 70-110 BUN 11 mg/dL 6-25 Creatinine 0.7 mg/dL 0.5-1.2 Sodium 138 mEq/L 135-145 Potassium 4.7 mEq/L 3.5-5.0 Chloride 103 mEq/L 95-107 Co-2 26 mEq/L 24-31 Alk Phos 76 IU/L 43-122 Alt(SGPT) 11 IU/L 10-40 Ast(Sgot) 19 IU/L 3-42 T.Bilirubin 0.4 mg/dL 0.1-1.3 Calcium 9.8 mg/dL 8.5-10.6 Tot.Protein 6.8 g/dL 5.8-8.0 Albumin 4.6 g/dL 3.0-5.2 Globulin 2.2 g/dL 2.0-3.4 GFR 91 ML/MIN/1.73SQM >60 Lipid 08/22/2023 [facility] [address] [place], [place] [id number] [phone] Cholesterol 188 mg/dL 0-200 1 Triglyceride 87 mg/dL 0-150 2 HDLD 79 mg/dL See Comment 3 Measured LDL 94 mg/dL 0-130 4 Calc VLDL 17.4 mg/dL See Comment 5 Chol/HDL 2.4 RATIO See Comment 6 Non-HDL 109 mg/dL See Comment 7 T3/T4/TSH 08/22/2023 [facility] [address] [place], [place] [id number] [phone] T3 1.1 ng/mL 0.7-1.7 T4 9.9 g /dL 4.0-11.0 TSH 1.61 uIU/mL 0.50-6.00 Hba1c 08/22/2023 [facility] [address] [place] [address] [phone] A1c 5.00 % 4.70-6.50 8 Urinalysis,Cult If Indicated 08/22/2023 [facility] [address] [place] [address] [phone] RFLX Culture NO Urinalysis 08/22/2023 [facility] [address] [place], [place] [id number] [phone] Color LIGHT-YEL LOW Appearance CLEAR Clear Spec.Grav. 1.016 1.005-1.025 Leukocytes NEGATIVE Negative Nitrite NEGATIVE Negative PH 7.0 6.0-7.5 Protein NEGATIVE Negative Urine Glucose NEGATIVE Negative Ketone NEGATIVE Negative Urobilinogen NORMAL E.U./DL Normal Bilirubin NEGATIVE Negative Blood NEGATIVE Negative WBC-U 0-2 /HPF 0-5/HPF RBC-U 0-2 /HPF 0-5/HPF Bacteria NONE SEEN None Seen Squamous 6-10 /HPF Abnormal 0-5/HPF CBC W/Diff 05/22/2023 [facility] [address] [place] [address] [phone] WBC 7.9 10^3/M3 3.1-9.2 RBC 4.01 10^6/M3 3.70-5.50 HGB 13.5 GR/DL 11.5-16.1 HCT 41.3 % 34.5-47.8 MCV 103.1 CUMICR High 82.6-95.8 MCH 33.7 PICOGR High 27.9-32.9 MCHC 32.7 % 32.6-35.4 RDW 14.7 % High 11.4-14.6 PLT 267 10^3/M3 140-350 MPV 9.4 CUMICR 7.0-10.6 %Neut 49.4 % 40.0-75.0 %Lymph 29.9 % 17.0-45.0 %[place] 9.2 % 1.0-11.0 %Eos 9.7 % High 0.0-6.0 %Baso 1.8 % 0.0-2.0 #Neut 3.9 10^3/M3 1.5-8.0 #Lymph 2.4 10^3/M3 0.8-3.2 #[place] 0.7 10^3/M3 0.0-0.8 #Eos 0.8 10^3/m3 High 0.0-0.4 #Baso 0.1 10^3/m3 0.0-0.2 Comp. Met 05/22/2023 [facility] [address] [place] [address] [phone] Glucose 80 mg/dL 70-110 BUN 14 mg/dL 6-25 Creatinine 0.7 mg/dL 0.5-1.2 Sodium 139 mEq/L 135-145 Potassium 4.4 mEq/L 3.5-5.0 Chloride 104 mEq/L 95-107 Co-2 27 mEq/L 24-31 Alk Phos 88 IU/L 43-122 Alt(SGPT) 8 IU/L Low 10-40 Ast(Sgot) 15 IU/L 3-42 T.Bilirubin 0.2 mg/dL 0.1-1.3 Calcium 9.4 mg/dL 8.5-10.6 Tot.Protein 6.1 g/dL 5.8-8.0 Albumin 4.3 g/dL 3.0-5.2 Globulin 1.8 g/dL Low 2.0-3.4 GFR 91 ML/MIN/1.73SQM >60 Lipid 05/22/2023 [facility] [address] [place] [address] [phone] Cholesterol 185 mg/dL 0-200 9 Triglyceride 193 mg/dL High 0-150 10 HDLD 73 mg/dL See Comment 11 Measured LDL 91 mg/dL 0-130 12 Calc VLDL 38.6 mg/dL See Comment 13 Chol/HDL 2.5 RATIO See Comment 14 Non-HDL 112 mg/dL See Comment 15 T3/T4/TSH 05/22/2023 [facility] [address] [place], [place] [id number] [phone] T3 1.0 ng/mL 0.7-1.7 T4 10.0 g /dL 4.0-11.0 TSH 1.81 uIU/mL 0.50-6.00 Hba1c 05/22/2023 [facility] [address] [place] [address] [phone] A1c 5.50 % 4.70-6.50 16 Urinalysis,Cult If Indicated 05/22/2023 [facility] [address] [place], [place] [id number] [phone] RFLX Culture NO Urinalysis 05/22/2023 [facility] [address] [place] [address] [phone] Color LIGHT-YEL LOW Appearance CLEAR Clear Spec.Grav. 1.018 1.005-1.025 Leukocytes NEGATIVE Negative Nitrite NEGATIVE Negative PH 6.0 6.0-7.5 Protein NEGATIVE Negative Urine Glucose NEGATIVE Negative Ketone NEGATIVE Negative Urobilinogen NORMAL E.U./DL Normal Bilirubin NEGATIVE Negative Blood NEGATIVE Negative WBC-U 0-2 /HPF 0-5/HPF RBC-U 0-2 /HPF 0-5/HPF Bacteria NONE SEEN None Seen Hyaline Casts 0-5 /LPF Abnormal None Seen Squamous 6-10 /HPF Abnormal 0-5/HPF Caox Crystal 1+ /HPF Abnormal Not Present Laboratory test finding 05/22/2023 [place] [facility] [place] [address] [phone] [place] 0.4 mmol/L Low 0.6-1.2 Clinical PDF Report [id number] SEE IMAGE 1 CHOLESTEROL Less than 200mg/dl Low risk 201-239 mg/dl Borderline risk Equal to or greater 240mg/dl High risk 2 TRIGLYCERIDES Less than 150mg/dl Normal 150-199mg/dl Borderline 200-499mg/dl High Greater than 500mg/dl Very High 3 HDL <40mg/dl Elevated Risk 41-59mg/dl Risk >=60mg/dl Least Risk 4 LDL <100mg/dl Optimal 100-129mg/dl Near Optimal 130-159mg/dl Borderline High 160-189mg/dl High >=190 Very High 5 VLDL Less than 30mg/dl Normal 6 CHOL/HDL <4.0 Optimal 4.0-5.0 Borderline >6.0 High Risk 7 NON-HDL 30mg/dl higher than LDL Target 8 MEAN GLUCOSE IN mg/d L/A1c% POOR CONTROL FAIR CONTROL GOOD CONTROL EXCELLENT CONTROL 360-14 210-9 180-8 120-6 330-13 150-7 90-5 300-12 270-11 240-10 9 CHOLESTEROL Less than 200mg/dl Low risk 201-239 mg/dl Borderline risk Equal to or greater 240mg/dl High risk 10 TRIGLYCERIDES Less than 150mg/dl Normal 150-199mg/dl Borderline 200-499mg/dl High Greater than 500mg/dl Very High 11 HDL <40mg/dl Elevated Risk 41-59mg/dl Risk >=60mg/dl Least Risk 12 LDL <100mg/dl Optimal 100-129mg/dl Near Optimal 130-159mg/dl Borderline High 160-189mg/dl High >=190 Very High 13 VLDL Less than 30mg/dl Normal 14 CHOL/HDL <4.0 Optimal 4.0-5.0 Borderline >6.0 High Risk 15 NON-HDL 30mg/dl higher than LDL Target 16 MEAN GLUCOSE IN mg/d L/A1c% POOR CONTROL FAIR CONTROL GOOD CONTROL EXCELLENT CONTROL 360-14 210-9 180-8 120-6 330-13 150-7 90-5 300-12 270-11 240-10 Procedures Date Code Description Status 08/22/2023 51474 Venipuncture Routine Complet ed 08/22/2023 3078F PVRP Diastolic BP <80 mmHg C ompleted 08/22/2023 3074F PVRP Systolic BP <130 mmHg C ompleted 05/22/2023 G9920 Scrning Perf And Negative Co mpleted 05/22/2023 73727 Venipuncture Routine [facility] ed 05/22/2023 3079F PVRP Diastolic BP 80-89 MMHG Completed 05/22/2023 3074F PVRP Systolic BP <130 mmHg C ompleted 06/10/2021 59557179 Mammogram Completed 01/07/2021 [id number] Colonoscopy Completed Medical Devices Description No Information Available Encounters Type Date Location Provider Dx Diagnosis Office Visit 08/22/2023 10:30a Sylvia Carl PA-C F31.89 Other bipolar disorder 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 E78.5 Hyperlipidemia, unsp ecified R73.01 Impaired fasting glu cose I10 Essential (primary) hypertension J01.00 Acute maxillary sinu sitis, unspecified G25.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 akathis ia Office Visit 05/22/2023 1:45p Sylvia edmondson PA-C F31.89 Other bipolar disorder E78.5 Hyperlipidemia, unsp ecified 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 G63 Polyneuropathy in di seases classified elsewhere L21.0 Seborrhea capitis R73.01 Impaired fasting glu cose I10 Essential (primary) hypertension Assessments Date Code Description Provider 08/22/2023 F31.89 Other bipolar disorder Carli Carl PA-C 08/22/2023 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 Vic LopezKOSTAS AndersonC 08/22/2023 E78.5 Hyperlipidemia, unspecified Vic KOSTAS MelgarC 08/22/2023 R73.01 Impaired fasting glucose Claudio LopezKOSTAS AndersonC 08/22/2023 I10 Essential (primary) hyperten lizbeth Vic KOSTAS MelgarC 08/22/2023 J01.00 Acute maxillary sinusitis, u nspecified Vic KOSTAS MelgarC 08/22/2023 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 Claudiolyric richards KOSTAS MelgarC 05/22/2023 F31.89 Other bipolar disorder Carli richards KOSTAS MelgarC 05/22/2023 E78.5 Hyperlipidemia, unspecified VicKOSTAS GarcíaC 05/22/2023 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 Vicmaurice Carl PA-C 05/22/2023 G63 Polyneuropathy i n diseases classified elsewhere KOSTAS LionC 05/22/2023 L21.0 Seborrhea capitis VicKOSTAS GarcíaC 05/22/2023 R73.01 Impaired fasting glucose Claudio sebastian KOSTAS MelgarC 05/22/2023 I10 Essential (primary) hypertenmanuel Boycemaurice Carl PA-C Plan of Treatment Future Appointment(s):* 10/23/2023 11:15 am - Vic Carl PA-C at [place] 08/22/2023 - Vic Carl PA-C* F31.89 Other bipolar disorder* Comments:* Agreeable to stop amitriptyline due to worsening tardive dyskinesia Patient verbalizes understanding of care plan / instructions. * G24.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 subacute dyskinesia* Comments:* Symptoms have worsened since last office visit Patient verbalizes understanding of care plan / instructions. Discussed antipsychotic medication with psych at length due to significant increase in symptoms * E78.5 Hyperlipidemia, unspecified* Comments:* Continue current medication. Decrease sugar and carbohydrates in diet. Increase exercise as tolerated Repeat labs today further Medications pending lab results today * R73.01 Impaired fasting glucose * I10 Essential (primary) hypertension * J01.00 Acute maxillary sinusitis, unspecified* Follow up:* As needed if symptoms not resolving * Recommendations:* Drink plenty of fluids. Yqoo-qsi-kaimdpw decongestant as needed. Call the office if worsening or noimprovement. * 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* Comments:* Patient verbalizes understanding of care plan / instructions. * All* New Medication:* Amoxicillin 875 mg - 1 tablet by mouth two times a day for 10 days * Follow up:* Follow up 2 months Functional Status Description No Information Available Mental Status Description No Information Available Referrals Description No Information Available
--- OUTSIDE RECORDS SUMMARY | 2023-10-05 17:49 | External Medical Summary | Continuity of Care Document ---
Author Name Unknown Organization [facility] Address [address] [facility] [place] [address] Phone [phone] Care Team Providers Care Digital Strategist Name Role Phone [facility] Care Team Information Logistics Solution Manager [phone] Vic Carl PA-C Care Team Information Rec eiver [phone] [facility] Care Team Information Receive r [phone] Problems Active Problems Provider Date Medial epicondylitis [...] SIG Qnty Indications Order ing Provider Date Ehvdnstbzdp543xn Tablets take one tablet by mouth as a one-time dose as needed 1tabs Rivka Wright MD 09/21/2023 Dpctc788bq Tablets 1 by mouth twice a day for 10 days 20tabs Rivka Wright MD 09/21/2023 - 10/01/2023 Gupwzijjuv96be Tablets two tablets x 10 days then one tablet daily x 10 days 30tabs Rivka Wright MD 09/07/2023 Propranolol ZAL52ec Tablets Take one tab twice daily 180tabs G25.71 Rivka Wright MD 05/22/2023 Trazodone UCD24ra Tablets take 1 tablet by mouth everyday at bedtime 90tabs Rivka Wrgiht MD 05/22/2023 Jfkeit3ep TBPK take as directed in pack 21units M25.551 Rivka Wright MD 05/22/2023 Bupropion Hydrochloride ER (XL)300mg Tablets ER 24HR Take 1 Tablet By Mouth Every Day - 90tabs Rivka Wright MD 05/22/2023 Oifhkjbbseg4vp Tablets Dispers 1 by mouth q6 hours as needed nausea 45tabs Rivka Wright MD 02/06/2023 Ocheeuoeoh47jr Capsules 1 by mouth twice a day for pain/neuropathy 180caps G63 Rivka Wright MD 02/06/2023 Qsljxgsmzbxz0ab Tablets 1 tab by mouth daily 90tabs Rivka Wright MD 08/04/2022 Albuterol Sulfate VHB002(90Base) mcg/Act Aerosol Inahle 2 Puffs Every 4-6 Hours as Needed Wheezing 18units J44.9 Trip Jarvis MD 06/13/2022 Trelegy Kywfnwh335-23.5-25mcg /Inh Aerosol take 1 puff by mouth every day 60Disk Rivka Wright MD 05/27/2022 Senexon-S8.6-50mg Tablets Take 2-3 Tablets AT Bedtime as Needed 90tabs Rivka Wright MD 04/12/2022 Lorazepam0.5mg Tablets Take 1 Tablet By Mouth Three Times A Day as Needed 90tabs Rivka Wright MD 06/20/2021 Zlkmiirth711xc Tablets take one tablet by mouth three times daily as needed - take with food 270tabs M50.10 Rivka Wright MD 06/08/2021 Atorvastatin Whmmlkq86yx Tablets Take 1 Tablet By Mouth Every Evening 90tabs Lucian Ocampo JR, MD 11/21/2018 Mango Mkmsgsrkv486em Capsules take 1 capsule by mouth three times daily 90caps Rivka Wright MD History Medications Dpllbjunqjp790ze Tablets 1 tablet by mouth two times a day for 10 days 20tabs Rivka Wright MD 08/22/2023 - 09/01/2023 Propranolol TRN62vg Tablets Take 1 Tablet By Mouth Twice A Day 60tabs G25.71 Rivka Wright MD 05/22/2023 - 05/22/2023 Ketoconazole2% Shampoo apply ketoconazol e shampoo 3 days in a row, leaving on for 5 min then rinse. repeat weekly. 360ml Rivka Wright MD 05/22/2023 - 09/07/2023 Propranolol NOR00ne Tablets 1 by mouth twice daily as needed 180tabs G25.71 Rivka Wright MD 04/16/2023 - 05/22/2023 Propranolol IFK93jq Tablets Take 1 Tablet By Mouth Twice A Day 60tabs G25.71 Rivka Wright MD 04/12/2023 - 04/16/2023 Medications Administered in Office Medication SIG Qnty Indications Ordering Provider Date Injection Kenalog 10 MG NDC [id number] Kera Lion-Cassia 08/02/2018 Celestone Soluspan 3 MG 6MG/MLInjection Vic Carl PA-C 0 06/19/2018 Injection Kenalog 10 MG NDC [id number] Kera Lion-Cassia 07/26/2017 Injection Dexamethasone Sodium Phosphate, 1 MGInjection Vic Carl PA-C 09/2016 Immunizations CPT Code Status Date Vaccine Lot # [id number] Given 07/25/2022 Influenza Virus Vaccine, Quadrivalent (Cciiv4), Derived From Cell [id number] Given 08/12/2021 Influenza Virus Vaccine, Quadrivalent (Cciiv4), Derived From 4 Given 02/17/2021 Moderna Sars-Co v-2 (Cov-19) vacc,100 mcg/ 0.5 mL 12Y+EMR Doc Only [id number] 44655 Given 01/20/2021 Moderna Sars-Co v-2 (Cov-19) vacc,100 mcg/ 0.5 mL 12Y+EMR Doc Only [id number] U-FLU Given 07/06/2020 Influenza,Unspecified 44106 Given 07/06/2020 Influenza Virus Vaccine, Quadrivalent (Cciiv4), Derived From 8 Given 07/26/2017 Influenza Virus Vaccine, Quadrivalent, Im Use U-FLU Given 07/26/2017 Influenza,Unspecified U-FLU Given 06/26/2016 Influenza,Unspecified U-FLU Given 2013 Influenza,Unspecified 57692 Given 2013 Influenza Vacci ne-Administered at another facility U-FLU Given 10/29/2012 Influenza,Unspecified 82317 Given 10/29/2012 Influenza Vacci ne-Administered at another facility 59081 Given 10/29/2012 Pneumococcal Vaccine/Pneu movax 23 28964 Given 02/23/2012 Pneumococcal Conjugate, P revnar 7 EMR Use Only U-FLU Given 07/26/2011 Influenza,Unspecified 12155 Given 07/26/2011 Influenza Vacci ne-Administered at another facility 61117 Given 08/15/2010 Tdap (Tetanus, diphtheria & acel. pertussis) Adacel or Boostrix 47223 Given 09/17/2008 TB Intradermal Test 29820 Given 09/03/2008 Influenza Vacci ne-Administered at another facility U-FLU Given 09/03/2008 Influenza,Unspecified 44492 Given 09/29/2006 Influenza Vacci ne-Administered at another facility U-FLU Given 09/29/2006 Influenza,Unspecified U-FLU Given 08/29/2005 Influenza,Unspecified 32316 Given 08/29/2005 Influenza Vacci ne-Administered at another facility 73339 Refused 04/27/2022 Pneumococcal Conjugate-Pr evnar 20 [id number] Refused 04/27/2022 Shingrix 85980 Refused 04/27/2022 Influenza Virus Vaccine, Quadrivalent (Cciiv4), Derived From Cell 15485 Refused 04/27/2022 Moderna Covid-1 9 Vaccine 50mcg Booster-EMR Doc Only [id number] Refused 10/14/2019 Influenza Virus Vaccine, Quadrivalent (Cciiv4), Derived From Cell [id number] Refused 11/20/2018 Shingrix [id number] Refused 11/20/2018 Influenza Virus Vaccine, Quadrivalent (Cciiv4), Derived From Cell Vital Signs Date Vital Result Comment 09/21/2023 1:27pm BP Systolic 130 mmHg BP Diastolic 76 mmHg Body Temperature 99.1 F Heart Rate 76 /min Respiratory Rate 24 /min Weight 125.00 lb Weight 56.700 kg 08/22/2023 10:02am BP Systolic 120 mmHg BP Diastolic 76 mmHg Body Temperature 97.6 F Heart Rate 76 /min Weight 125.12 lb Weight 56.757 kg Height 63 inches 5'3" BMI (Body Mass Index) 22.2 kg/m2 O2 % BldC Oximetry 96 % [place] Body Weight 115 lb Results Test Acquired Date Facility Test Result H/L Range N ote Laboratory test finding 08/22/2023 [facility] [place] [address] [phone] Mango 0.8 mmol/L Normal 0.6-1.2 Clinical PDF Report [id number] SEE IMAGE CBC W/Diff 08/22/2023 [facility] [address] [place] [address] [phone] WBC 7.3 10^3/M3 3.1-9.2 RBC 4.20 10^6/M3 3.70-5.50 HGB 14.3 GR/DL 11.5-16.1 HCT 42.5 % 34.5-47.8 MCV 101.2 CUMICR High 82.6-95.8 MCH 34.2 PICOGR High 27.9-32.9 MCHC 33.8 % 32.6-35.4 RDW 13.7 % 11.4-14.6 PLT 276 10^3/M3 140-350 MPV 9.7 CUMICR 7.0-10.6 %Neut 55.5 % 40.0-75.0 %Lymph 29.6 % 17.0-45.0 %[place] 6.2 % 1.0-11.0 %Eos 6.3 % High 0.0-6.0 %Baso 2.4 % High 0.0-2.0 #Neut 4.0 10^3/M3 1.5-8.0 #Lymph 2.1 10^3/M3 0.8-3.2 #[place] 0.5 10^3/M3 0.0-0.8 #Eos 0.5 10^3/m3 High 0.0-0.4 #Baso 0.2 10^3/m3 0.0-0.2 Comp. Met 08/22/2023 [facility] 1 [place] [address] [phone] Glucose 89 mg/dL 70-110 BUN 11 mg/dL [...] 2.0-3.4 GFR 91 ML/MIN/1.73SQM >60 Lipid 08/22/2023 [facility] [address] [place] [address] [phone] Cholesterol 188 mg/dL 0-200 1 Triglyceride 87 mg/dL 0-150 2 HDLD 79 mg/dL See Comment 3 Measured LDL 94 mg/dL 0-130 4 Calc VLDL 17.4 mg/dL See Comment 5 Chol/HDL 2.4 RATIO See Comment 6 Non-HDL 109 mg/dL See Comment 7 T3/T4/TSH 08/22/2023 [facility] [address] [place] [address] [phone] T3 1.1 ng/mL 0.7-1.7 T4 9.9 g /dL 4.0-11.0 TSH 1.61 uIU/mL 0.50-6.00 Hba1c 08/22/2023 [facility] [address] [place] [address] [phone] A1c 5.00 % 4.70-6.50 8 Urinalysis,Cult If Indicated 08/22/2023 [facility] [address] [place] [address] [phone] RFLX Culture NO Urinalysis 08/22/2023 [facility] [address] [place] [address] [phone] Color LIGHT-YEL LOW Appearance CLEAR Clear Spec.Grav. 1.016 1.005-1.025 Leukocytes NEGATIVE Negative Nitrite NEGATIVE Negative PH 7.0 6.0-7.5 Protein NEGATIVE Negative Urine Glucose NEGATIVE Negative Ketone NEGATIVE Negative Urobilinogen NORMAL E.U./DL Normal Bilirubin NEGATIVE Negative Blood NEGATIVE Negative WBC-U 0-2 /HPF 0-5/HPF RBC-U 0-2 /HPF 0-5/HPF Bacteria NONE SEEN None Seen Squamous 6-10 /HPF Abnormal 0-5/HPF CBC W/Diff 05/22/2023 [facility] [address] [place] [address] [phone] WBC 7.9 10^3/M3 3.1-9.2 RBC 4.01 10^6/M3 3.70-5.50 HGB 13.5 GR/DL 11.5-16.1 HCT 41.3 % 34.5-47.8 MCV 103.1 CUMICR High 82.6-95.8 MCH 33.7 PICOGR High 27.9-32.9 MCHC 32.7 % 32.6-35.4 RDW 14.7 % High 11.4-14.6 PLT 267 10^3/M3 140-350 MPV 9.4 CUMICR 7.0-10.6 %Neut 49.4 % 40.0-75.0 %Lymph 29.9 % 17.0-45.0 %[place] 9.2 % 1.0-11.0 %Eos 9.7 % High 0.0-6.0 %Baso 1.8 % 0.0-2.0 #Neut 3.9 10^3/M3 1.5-8.0 #Lymph 2.4 10^3/M3 0.8-3.2 #[place] 0.7 10^3/M3 0.0-0.8 #Eos 0.8 10^3/m3 High 0.0-0.4 #Baso 0.1 10^3/m3 0.0-0.2 Comp. Met 05/22/2023 [facility] 1 [place], [place] [id number] [phone] Glucose 80 mg/dL 70-110 BUN 14 mg/dL [...] 2.0-3.4 GFR 91 ML/MIN/1.73SQM >60 Lipid 05/22/2023 [facility] [address] [place] [address] [phone] Cholesterol 185 mg/dL 0-200 9 Triglyceride 193 mg/dL High 0-150 10 HDLD 73 mg/dL See Comment 11 Measured LDL 91 mg/dL 0-130 12 Calc VLDL 38.6 mg/dL See Comment 13 Chol/HDL 2.5 RATIO See Comment 14 Non-HDL 112 mg/dL See Comment 15 T3/T4/TSH 05/22/2023 [facility] [address] [place] [address] [phone] T3 1.0 ng/mL 0.7-1.7 T4 10.0 g /dL 4.0-11.0 TSH 1.81 uIU/mL 0.50-6.00 Hba1c 05/22/2023 [facility] [address] [place] [address] [phone] A1c 5.50 % 4.70-6.50 16 Urinalysis,Cult If Indicated 05/22/2023 [facility] [address] [place] [address] [phone] RFLX Culture NO Urinalysis 05/22/2023 [facility] [address] [place] [address] [phone] Color LIGHT-YEL LOW Appearance CLEAR Clear Spec.Grav. [...] Abnormal Not Present Laboratory test finding 05/22/[address] [facility] [place] [address] [phone] Mango 0.4 mmol/L Low 0.6-1.2 Clinical PDF Report [id number] SEE IMAGE 1 CHOLESTEROL Less than 200mg/dl [...] 240-10 Procedures Date Code Description Status 08/22/2023 64418 Venipuncture Routine [facility] ed 08/22/2023 3078F PVRP Diastolic BP <80 mmHg C ompleted 08/22/2023 3074F PVRP Systolic BP <130 mmHg C ompleted 05/22/2023 G9920 Scrning Perf And Negative Co mpleted 05/22/2023 50772 Venipuncture Routine [facility] ed 05/22/2023 3079F PVRP Diastolic BP 80-89 MMHG Completed 05/22/2023 3074F PVRP Systolic BP <130 mmHg C ompleted 06/10/2021 [id number] Mammogram Completed 01/07/2021 [id number] Colonoscopy Completed Medical Devices Description No Information Available Encounters Type Date Location Provider Dx Diagnosis Office Visit 09/21/2023 1:15p Sylvia Carl PA-C N39.0 Urinary tract infection, site not specified Office Visit 08/22/2023 10:30a Sylvia Carl PA-C F31.89 Other bipolar disorder 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 E78.5 Hyperlipidemia, unsp ecified R73.01 Impaired fasting glu cose I10 Essential (primary) hypertension J01.00 Acute maxillary sinu sitis, unspecified G25.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 akathis ia Office Visit 05/22/2023 1:45p [facility] Vic edmondson, PA-C F31.89 Other bipolar disorder E78.5 Hyperlipidemia, unsp ecified 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 G63 Polyneuropathy in di seases classified elsewhere L21.0 Seborrhea capitis R73.01 Impaired fasting glu cose I10 Essential (primary) hypertension Assessments Date Code Description Provider 09/21/2023 N39.0 Urinary tract infection, sit e not specified Vic Carl, KOSTASC 08/22/2023 F31.89 Other bipolar disorder Carli Carl, [place]-C 08/22/2023 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 Vic Carl, KOSTASC 08/22/2023 E78.5 Hyperlipidemia, unspecified Vic Carl, [place]-C 08/22/2023 R73.01 Impaired fasting glucose KOSTAS MayerC 08/22/2023 I10 Essential (primary) hyperten lizbeth Vic Carl, KOSTASC 08/22/2023 J01.00 Acute maxillary sinusitis, u nspecified Vic Carl, KOSTASC 08/22/2023 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 Carli Carl, [place]-C 05/22/2023 F31.89 Other bipolar disorder [facility] JosephC 05/22/2023 E78.5 Hyperlipidemia, unspecified Vic Carl, [place]-C 05/22/2023 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 Vic Carl, [place]-C 05/22/2023 G63 Polyneuropathy i n diseases classified elsewhere [facility]AS LionC 05/22/2023 L21.0 Seborrhea capitis Vic Carl, [place]-C 05/22/2023 R73.01 Impaired fasting glucose [place] Mayer-C 05/22/2023 I10 Essential (primary) hyperten lizbeth Vic D. Lazorka, PA-C Plan of Treatment Future Appointment(s):* 10/23/2023 11:15 am - Vic Carl PA-C at [facility] 09/21/2023 - Vic Carl PA-C* N39.0 Urinary tract infection, site not specified* Comments:* Complete antibiotics Increase fluid intake Aware that if urinary symptoms return or worsen she is to come to the office to give urinalysis * All* New Medication:* Cipro 500 mg - 1 by mouth twice a day for 10 days * Fluconazole 150 mg - take one tablet by mouth as a one-time dose as needed Functional Status Description No Information Available Mental Status Description No Information Available Referrals Description No Information Available
--- OUTSIDE RECORDS SUMMARY | 2023-10-05 17:49 | External Medical Summary | Continuity of Care Document ---
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 Care Team Information Receive r [phone] Problems Active Problems Provider Date Medial epicondylitis [...] PA-C Ons et: 04/22/2019 Atopic dermatitis Vic Calr PA-C Onset: 04/22/2019 Sciatica Vic Carl PA-C [...] SIG Qnty Indications Order ing Provider Date Aklwekxyogj239pt Tablets take one tablet by mouth as a one-time dose as needed 1tabs Rivka Wright MD 09/21/2023 Vzdgt921qv Tablets 1 by mouth twice a day for 10 days 20tabs Rivka Wright MD 09/21/2023 - 10/01/2023 Xucaimxsgl49ki Tablets two tablets x 10 days then one tablet daily x 10 days 30tabs Rivka Wright MD 09/07/2023 Propranolol RYP55xc Tablets Take one tab twice daily 180tabs G25.71 Rivka Wright MD 05/22/2023 Trazodone RHK31bm Tablets take 1 tablet by mouth everyday at bedtime 90tabs Rivka Wright MD 05/22/2023 Oatksd4ad TBPK take as directed in pack 21units M25.551 Rivka Wright MD 05/22/2023 Bupropion Hydrochloride ER (XL)300mg Tablets ER 24HR Take 1 Tablet By Mouth Every Day - 90tabs Rivka Wright MD 05/22/2023 Dgffiandzup7fv Tablets Dispers 1 by mouth q6 hours as needed nausea 45tabs Rivka Wright MD 02/06/2023 Yzacuebljy15wt Capsules 1 by mouth twice a day for pain/neuropathy 180caps G63 Rivka Wright MD 02/06/2023 Plfcosbjzpvh0sn Tablets 1 tab by mouth daily 90tabs Rivka Wright MD 08/04/2022 Albuterol Sulfate YFO244(90Base) mcg/Act Aerosol Inahle 2 Puffs Every 4-6 Hours as Needed Wheezing 18units J44.9 Trip Jarvis MD 06/13/2022 Trelegy Ulrqbuf702-15.5-25mcg /Inh Aerosol take 1 puff by mouth every day 60Disk Rivka Wright MD 05/27/2022 Senexon-S8.6-50mg Tablets Take 2-3 Tablets AT Bedtime as Needed 90tabs Rivka Wright MD 04/12/2022 Lorazepam0.5mg Tablets Take 1 Tablet By Mouth Three Times A Day as Needed 90tabs Rivka Wright MD 06/20/2021 Oshyeojxi751jr Tablets take one tablet by mouth three times daily as needed - take with food 270tabs M50.10 Rivka Wright MD 06/08/2021 Atorvastatin Yokucin32wp Tablets Take 1 Tablet By Mouth Every Evening 90tabs Lucian Ocampo JR, MD 11/21/2018 [place] Yhszrqqio235hr Capsules take 1 capsule by mouth three times daily 90caps Rivka Wright MD History Medications Iblpfpfvhgg988qt Tablets 1 tablet by mouth two times a day for 10 days 20tabs Rivka Wright MD 08/22/2023 - 09/01/2023 Propranolol EKO89la Tablets Take 1 Tablet By Mouth Twice A Day 60tabs G25.71 Rivka Wright MD 05/22/2023 - 05/22/2023 Ketoconazole2% Shampoo apply ketoconazol e shampoo 3 days in a row, leaving on for 5 min then rinse. repeat weekly. 360ml Rivka Wright MD 05/22/2023 - 09/07/2023 Propranolol NML34zj Tablets 1 by mouth twice daily as needed 180tabs G25.71 Rivka Wright MD 04/16/2023 - 05/22/2023 Propranolol EFI02ua Tablets Take 1 Tablet By Mouth Twice A Day 60tabs G25.71 Rivka Wright MD 04/12/2023 - 04/16/2023 Medications Administered in Office Medication SIG Qnty Indications Ordering Provider Date Injection Kenalog 10 MG NDC [id number] Kera Lion-Cassia 08/02/2018 Celestone Soluspan 3 MG 6MG/MLInjection Vic Carl PA-C 0 06/19/2018 Injection Kenalog 10 MG NDC [id number] Kera Lion-Cassia 07/26/2017 Injection Dexamethasone Sodium Phosphate, 1 MGInjection Vic Carl PA-C 09/2016 Immunizations CPT Code Status Date Vaccine Lot # [id number] Given 07/25/2022 Influenza Virus Vaccine, Quadrivalent (Cciiv4), Derived From Cell [id number] Given 08/12/2021 Influenza Virus Vaccine, Quadrivalent (Cciiv4), Derived From 1 Given 02/17/2021 Moderna Sars-Co v-2 (Cov-19) vacc,100 mcg/ 0.5 mL 12Y+EMR Doc Only [id number] 17128 Given 01/20/2021 Moderna Sars-Co v-2 (Cov-19) vacc,100 mcg/ 0.5 mL 12Y+EMR Doc Only [id number] U-FLU Given 07/06/2020 Influenza,Unspecified 22831 Given 07/06/2020 Influenza Virus Vaccine, Quadrivalent (Cciiv4), Derived From 4 Given 07/26/2017 Influenza Virus Vaccine, Quadrivalent, Im Use U-FLU Given 07/26/2017 Influenza,Unspecified U-FLU Given 06/26/2016 Influenza,Unspecified U-FLU Given 2013 Influenza,Unspecified 38404 Given 2013 Influenza Vacci ne-Administered at another facility U-FLU Given 10/29/2012 Influenza,Unspecified 38826 Given 10/29/2012 Influenza Vacci ne-Administered at another facility 17774 Given 10/29/2012 Pneumococcal Vaccine/Pneu movax 23 53934 Given 02/23/2012 Pneumococcal Conjugate, P revnar 7 EMR Use Only U-FLU Given 07/26/2011 Influenza,Unspecified 77570 Given 07/26/2011 Influenza Vacci ne-Administered at another facility 16732 Given 08/15/2010 Tdap (Tetanus, diphtheria & acel. pertussis) Adacel or Boostrix 75353 Given 09/17/2008 TB Intradermal Test 39338 Given 09/03/2008 Influenza Vacci ne-Administered at another facility U-FLU Given 09/03/2008 Influenza,Unspecified 32941 Given 09/29/2006 Influenza Vacci ne-Administered at another facility U-FLU Given 09/29/2006 Influenza,Unspecified U-FLU Given 08/29/2005 Influenza,Unspecified 56810 Given 08/29/2005 Influenza Vacci ne-Administered at another facility 90590 Refused 04/27/2022 Pneumococcal Conjugate-Pr evnar 20 10658 Refused 04/27/2022 Shingrix 49028 Refused 04/27/2022 Influenza Virus Vaccine, Quadrivalent (Cciiv4), Derived From Cell 82524 Refused 04/27/2022 Moderna Covid-1 9 Vaccine 50mcg Booster-EMR Doc Only 47290 Refused 10/14/2019 Influenza Virus Vaccine, Quadrivalent (Cciiv4), Derived From Cell [id number] Refused 11/20/2018 Shingrix 59463 Refused 11/20/2018 Influenza Virus Vaccine, Quadrivalent (Cciiv4), [...] kg/m2 O2 % BldC Oximetry 96 % [place] Body Weight 115 lb Results Test Acquired Date Facility Test Result H/L Range [place] Laboratory test finding 08/22/2023 [facility] [place] [address] [phone] [place] 0.8 mmol/L Normal 0.6-1.2 Clinical PDF Report [id number] SEE IMAGE CBC W/Diff 08/22/2023 [facility]. [address] [place] [address] [phone] WBC 7.3 10^3/M3 3.1-9.2 RBC 4.20 10^6/M3 3.70-5.50 HGB 14.3 GR/DL 11.5-16.1 HCT 42.5 % 34.5-47.8 MCV 101.2 CUMICR High 82.6-95.8 MCH 34.2 PICOGR High 27.9-32.9 MCHC 33.8 % 32.6-35.4 RDW 13.7 % 11.4-14.6 PLT 276 10^3/M3 140-350 MPV 9.7 CUMICR 7.0-10.6 %Neut 55.5 % 40.0-75.0 %Lymph 29.6 % 17.0-45.0 %Mcdonald 6.2 % 1.0-11.0 %Eos 6.3 % High 0.0-6.0 %Baso 2.4 % High 0.0-2.0 #Neut 4.0 10^3/M3 1.5-8.0 #Lymph 2.1 10^3/M3 0.8-3.2 #Mcdonald 0.5 10^3/M3 0.0-0.8 #Eos 0.5 10^3/m3 High 0.0-0.4 #Baso 0.2 10^3/m3 0.0-0.2 Comp. Met 08/22/2023 [facility]. 1 [place] [address] [phone] Glucose 89 mg/dL 70-110 BUN 11 mg/dL [...] 2.0-3.4 GFR 91 ML/MIN/1.73SQM >60 Lipid 08/22/2023 [facility]. 1 [place] [address] [phone] Cholesterol 188 mg/dL 0-200 1 Triglyceride 87 mg/dL 0-150 2 HDLD 79 mg/dL See Comment 3 Measured LDL 94 mg/dL 0-130 4 Calc VLDL 17.4 mg/dL See Comment 5 Chol/HDL 2.4 RATIO See Comment 6 Non-HDL 109 mg/dL See Comment 7 T3/T4/TSH 08/22/2023 [facility]. 1 [place] [address] [phone] T3 1.1 ng/mL 0.7-1.7 T4 9.9 g /dL 4.0-11.0 TSH 1.61 uIU/mL 0.50-6.00 Hba1c 08/22/2023 [facility]. [address] [place] [address] [phone] A1c 5.00 % 4.70-6.50 8 Urinalysis,Cult If Indicated 08/22/2023 [facility]. 1 [place] [address] [phone] RFLX Culture NO Urinalysis 08/22/2023 [facility]. 1 [place] [address] [phone] Color LIGHT-YEL LOW Appearance CLEAR Clear Spec.Grav. 1.016 1.005-1.025 Leukocytes NEGATIVE Negative Nitrite NEGATIVE Negative PH 7.0 6.0-7.5 Protein NEGATIVE Negative Urine Glucose NEGATIVE Negative Ketone NEGATIVE Negative Urobilinogen NORMAL E.U./DL Normal Bilirubin NEGATIVE Negative Blood NEGATIVE Negative WBC-U 0-2 /HPF 0-5/HPF RBC-U 0-2 /HPF 0-5/HPF Bacteria NONE SEEN None Seen Squamous 6-10 /HPF Abnormal 0-5/HPF CBC W/Diff 05/22/2023 [facility]. 1 [place] [address] [phone] WBC 7.9 10^3/M3 3.1-9.2 RBC 4.01 10^6/M3 3.70-5.50 HGB 13.5 GR/DL 11.5-16.1 HCT 41.3 % 34.5-47.8 MCV 103.1 CUMICR High 82.6-95.8 MCH 33.7 PICOGR High 27.9-32.9 MCHC 32.7 % 32.6-35.4 RDW 14.7 % High 11.4-14.6 PLT 267 10^3/M3 140-350 MPV 9.4 CUMICR 7.0-10.6 %Neut 49.4 % 40.0-75.0 %Lymph 29.9 % 17.0-45.0 %Mcdonald 9.2 % 1.0-11.0 %Eos 9.7 % High 0.0-6.0 %Baso 1.8 % 0.0-2.0 #Neut 3.9 10^3/M3 1.5-8.0 #Lymph 2.4 10^3/M3 0.8-3.2 #Mcdonald 0.7 10^3/M3 0.0-0.8 #Eos 0.8 10^3/m3 High 0.0-0.4 #Baso 0.1 10^3/m3 0.0-0.2 Comp. Met 05/22/2023 [facility]. 1 [place], [place] [id number] [phone] Glucose 80 mg/dL 70-110 BUN 14 mg/dL [...] 2.0-3.4 GFR 91 ML/MIN/1.73SQM >60 Lipid 05/22/2023 [facility]. 1 [place] [address] [phone] Cholesterol 185 mg/dL 0-200 9 Triglyceride 193 mg/dL High 0-150 10 HDLD 73 mg/dL See Comment 11 Measured LDL 91 mg/dL 0-130 12 Calc VLDL 38.6 mg/dL See Comment 13 Chol/HDL 2.5 RATIO See Comment 14 Non-HDL 112 mg/dL See Comment 15 T3/T4/TSH 05/22/2023 [facility]. 1 [place] [address] [phone] T3 1.0 ng/mL 0.7-1.7 T4 10.0 g /dL 4.0-11.0 TSH 1.81 uIU/mL 0.50-6.00 Hba1c 05/22/2023 [facility]. 1 [place] [address] [phone] A1c 5.50 % 4.70-6.50 16 Urinalysis,Cult If Indicated 05/22/2023 [facility]. 1 [place] [address] [phone] RFLX Culture NO Urinalysis 05/22/2023 [facility]. 1 [place] [address] [phone] Color LIGHT-YEL LOW Appearance CLEAR Clear Spec.Grav. [...] Abnormal Not Present Laboratory test finding 05/22/2023 [facility] [place] [address] [phone] [place] 0.4 mmol/L Low 0.6-1.2 Clinical PDF Report [id number] SEE IMAGE 1 CHOLESTEROL Less than 200mg/dl [...] 240-10 Procedures Date Code Description Status 08/22/2023 96368 Venipuncture Routine [facility] ed 08/22/2023 3078F PVRP Diastolic BP <80 mmHg C ompleted 08/22/2023 3074F PVRP Systolic BP <130 mmHg C ompleted 05/22/2023 G9920 Scrning Perf And Negative Co mpleted 05/22/2023 65620 Venipuncture Routine [facility] ed 05/22/2023 3079F PVRP Diastolic BP 80-89 MMHG Completed 05/22/2023 3074F PVRP Systolic BP <130 mmHg C ompleted 06/10/2021 [id number] Mammogram Completed 01/07/2021 [id number] Colonoscopy Completed Medical Devices Description No Information [...] induced akathis ia Office Visit 05/22/2023 1:45p [facility] Vic edmondson, PA-C F31.89 Other bipolar disorder [...] 11:15 am - Vic Carl PA-C at [facility] 09/21/2023 - Vic Carl PA-C* N39.0 Urinary [...]
--- OUTSIDE RECORDS SUMMARY | 2023-10-05 17:49 | External Medical Summary | Continuity of Care Document ---
Author Name Unknown Organization [facility] Address [address] [facility] [place] [address] Phone [phone] Care Team Providers Care Combustion Analyst Name Role Phone [place] [facility] Care Team Information Surgical Elastic Knitter [phone] Vic Carl PA-C Care Team Information Rec eiver [phone] [place] [employer] Salesperson Care Team Information Receive r [phone] Problems Active Problems Provider Date Medial epicondylitis [...] SIG Qnty Indications Order ing Provider Date Iwmifvdvrxg197qh Tablets take one tablet by mouth as a one-time dose as needed 1tabs Rivka Wright MD 09/21/2023 Xvwpc897yb Tablets 1 by mouth twice a day for 10 days 20tabs Rivka Wright MD 09/21/2023 - 10/01/2023 Zdmtqwebis48lg Tablets two tablets x 10 days then one tablet daily x 10 days 30tabs Rivka Wright MD 09/07/2023 Propranolol DYU48eg Tablets Take one tab twice daily 180tabs G25.71 Rivka Wright MD 05/22/2023 Trazodone FRR63wf Tablets take 1 tablet by mouth everyday at bedtime 90tabs Rivka Wright MD 05/22/2023 Fzpwpo7eu TBPK take as directed in pack 21units M25.551 Rivka Wright MD 05/22/2023 Bupropion Hydrochloride ER (XL)300mg Tablets ER 24HR Take 1 Tablet By Mouth Every Day - 90tabs Rivka Wright MD 05/22/2023 Sjgzrssccfd2ky Tablets Dispers 1 by mouth q6 hours as needed nausea 45tabs Rivka Wright MD 02/06/2023 Nxlhbypstb78lo Capsules 1 by mouth twice a day for pain/neuropathy 180caps G63 Rivka Wright MD 02/06/2023 Rworegbmbgmb2bv Tablets 1 tab by mouth daily 90tabs Rivka Wright MD 08/04/2022 Albuterol Sulfate QDS411(90Base) mcg/Act Aerosol Inahle 2 Puffs Every 4-6 Hours as Needed Wheezing 18units J44.9 Trip Jarvis MD 06/13/2022 Trelegy Sbrzrkf200-13.5-25mcg /Inh Aerosol take 1 puff by mouth every day 60Disk Rivka Wright MD 05/27/2022 Senexon-S8.6-50mg Tablets Take 2-3 Tablets AT Bedtime as Needed 90tabs Rivka Wright MD 04/12/2022 Lorazepam0.5mg Tablets Take 1 Tablet By Mouth Three Times A Day as Needed 90tabs Rivka Wright MD 06/20/2021 Dtrgejnli113pv Tablets take one tablet by mouth three times daily as needed - take with food 270tabs M50.10 Rivka Wright MD 06/08/2021 Atorvastatin Asukhuu19ah Tablets Take 1 Tablet By Mouth Every Evening 90tabs Lucian Ocampo JR, MD 11/21/2018 [place] Gjirkallk410mr Capsules take 1 capsule by mouth three times daily 90caps Rivka Wright MD History Medications Xniatkxfdmd827cs Tablets 1 tablet by mouth two times a day for 10 days 20tabs Rivka Wright MD 08/22/2023 - 09/01/2023 Propranolol RTS16za Tablets Take 1 Tablet By Mouth Twice A Day 60tabs G25.71 Rivka Wright MD 05/22/2023 - 05/22/2023 Ketoconazole2% Shampoo apply ketoconazol e shampoo 3 days in a row, leaving on for 5 min then rinse. repeat weekly. 360ml Rivka Wright MD 05/22/2023 - 09/07/2023 Propranolol IIU21ff Tablets 1 by mouth twice daily as needed 180tabs G25.71 Rivka Wright MD 04/16/2023 - 05/22/2023 Propranolol QQZ65cg Tablets Take 1 Tablet By Mouth Twice A Day 60tabs G25.71 Rivka Wright MD 04/12/2023 - 04/16/2023 Medications Administered in Office Medication SIG Qnty Indications Ordering Provider Date Injection Kenalog 10 MG NDC [id number] Kera Lion-Cassia 08/02/2018 Celestone Soluspan 3 MG 6MG/MLInjection Vic Carl PA-C 0 06/19/2018 Injection Kenalog 10 MG NDC [id number] Kera Lion-Cassia 07/26/2017 Injection Dexamethasone Sodium Phosphate, 1 MGInjection Vic Carl PA-C 09/2016 Immunizations CPT Code Status Date Vaccine Lot # 75083 Given 07/25/2022 Influenza Virus Vaccine, Quadrivalent (Cciiv4), Derived From Cell [id number] 69442 Given 08/12/2021 Influenza Virus Vaccine, Quadrivalent (Cciiv4), Derived From 7 Given 02/17/2021 Moderna Sars-Co v-2 (Cov-19) vacc,100 mcg/ 0.5 mL 12Y+EMR Doc Only [id number] 47242 Given 01/20/2021 Moderna Sars-Co v-2 (Cov-19) vacc,100 mcg/ 0.5 mL 12Y+EMR Doc Only [id number] U-FLU Given 07/06/2020 Influenza,Unspecified 70474 Given 07/06/2020 Influenza Virus Vaccine, Quadrivalent (Cciiv4), Derived From 8 Given 07/26/2017 Influenza Virus Vaccine, Quadrivalent, Im Use U-FLU Given 07/26/2017 Influenza,Unspecified U-FLU Given 06/26/2016 Influenza,Unspecified U-FLU Given 2013 Influenza,Unspecified 65372 Given 2013 Influenza Vacci ne-Administered at another facility U-FLU Given 10/29/2012 Influenza,Unspecified 40014 Given 10/29/2012 Influenza Vacci ne-Administered at another facility 39000 Given 10/29/2012 Pneumococcal Vaccine/Pneu movax 23 22700 Given 02/23/2012 Pneumococcal Conjugate, P revnar 7 EMR Use Only U-FLU Given 07/26/2011 Influenza,Unspecified 50824 Given 07/26/2011 Influenza Vacci ne-Administered at another facility 69446 Given 08/15/2010 Tdap (Tetanus, diphtheria & acel. pertussis) Adacel or Boostrix 48199 Given 09/17/2008 TB Intradermal Test 23441 Given 09/03/2008 Influenza Vacci ne-Administered at another facility U-FLU Given 09/03/2008 Influenza,Unspecified 92381 Given 09/29/2006 Influenza Vacci ne-Administered at another facility U-FLU Given 09/29/2006 Influenza,Unspecified U-FLU Given 08/29/2005 Influenza,Unspecified 84123 Given 08/29/2005 Influenza Vacci ne-Administered at another facility 07255 Refused 04/27/2022 Pneumococcal Conjugate-Pr evnar 20 94955 Refused 04/27/2022 Shingrix 11844 Refused 04/27/2022 Influenza Virus Vaccine, Quadrivalent (Cciiv4), Derived From Cell 60845 Refused 04/27/2022 Moderna Covid-1 9 Vaccine 50mcg Booster-EMR Doc Only 13437 Refused 10/14/2019 Influenza Virus Vaccine, Quadrivalent (Cciiv4), Derived From Cell 56226 Refused 11/20/2018 Shingrix 02015 Refused 11/20/2018 Influenza Virus Vaccine, Quadrivalent (Cciiv4), [...] kg/m2 O2 % BldC Oximetry 96 % [place] Body Weight 115 lb Results Test Acquired Date Facility Test Result H/L Range N [place] Laboratory test finding 08/22/2023 [facility]-[address] [place] [address] [phone] [place] 0.8 mmol/L Normal 0.6-1.2 Clinical PDF Report [id number] SEE IMAGE CBC W/Diff 08/22/2023 [facility]. 1 [facility] [place] [address] [phone] WBC 7.3 10^3/M3 3.1-9.2 RBC 4.20 10^6/M3 3.70-5.50 HGB 14.3 GR/DL 11.5-16.1 HCT 42.5 % 34.5-47.8 MCV 101.2 CUMICR High 82.6-95.8 MCH 34.2 PICOGR High 27.9-32.9 MCHC 33.8 % 32.6-35.4 RDW 13.7 % 11.4-14.6 PLT 276 10^3/M3 140-350 MPV 9.7 CUMICR 7.0-10.6 %Neut 55.5 % 40.0-75.0 %Lymph 29.6 % 17.0-45.0 %Evans 6.2 % 1.0-11.0 %Eos 6.3 % High 0.0-6.0 %Baso 2.4 % High 0.0-2.0 #Neut 4.0 10^3/M3 1.5-8.0 #Lymph 2.1 10^3/M3 0.8-3.2 #Evans 0.5 10^3/M3 0.0-0.8 #Eos 0.5 10^3/m3 High 0.0-0.4 #Baso 0.2 10^3/m3 0.0-0.2 Comp. Met 08/22/2023 [facility]. 1 [place] [address] [phone] Glucose 89 mg/dL 70-110 BUN 11 mg/dL [...] 2.0-3.4 GFR 91 ML/MIN/1.73SQM >60 Lipid 08/22/2023 [facility]. [address] [place] [address] [phone] Cholesterol 188 mg/dL 0-200 1 Triglyceride 87 mg/dL 0-150 2 HDLD 79 mg/dL See Comment 3 Measured LDL 94 mg/dL 0-130 4 Calc VLDL 17.4 mg/dL See Comment 5 Chol/HDL 2.4 RATIO See Comment 6 Non-HDL 109 mg/dL See Comment 7 T3/T4/TSH 08/22/2023 [facility]. [address] [place] [address] [phone] T3 1.1 ng/mL 0.7-1.7 T4 9.9 g /dL 4.0-11.0 TSH 1.61 uIU/mL 0.50-6.00 Hba1c 08/22/2023 [facility]. [address] [place] [address] [phone] A1c 5.00 % 4.70-6.50 8 Urinalysis,Cult If Indicated 08/22/2023 [facility]. [address] [place] [address] [phone] RFLX Culture NO Urinalysis 08/22/2023 [facility]. [address] [place] [address] [phone] Color LIGHT-YEL LOW Appearance CLEAR Clear Spec.Grav. 1.016 1.005-1.025 Leukocytes NEGATIVE Negative Nitrite NEGATIVE Negative PH 7.0 6.0-7.5 Protein NEGATIVE Negative Urine Glucose NEGATIVE Negative Ketone NEGATIVE Negative Urobilinogen NORMAL E.U./DL Normal Bilirubin NEGATIVE Negative Blood NEGATIVE Negative WBC-U 0-2 /HPF 0-5/HPF RBC-U 0-2 /HPF 0-5/HPF Bacteria NONE SEEN None Seen Squamous 6-10 /HPF Abnormal 0-5/HPF CBC W/Diff 05/22/2023 [facility]. [address] [place] [address] [phone] WBC 7.9 10^3/M3 3.1-9.2 RBC 4.01 10^6/M3 3.70-5.50 HGB 13.5 GR/DL 11.5-16.1 HCT 41.3 % 34.5-47.8 MCV 103.1 CUMICR High 82.6-95.8 MCH 33.7 PICOGR High 27.9-32.9 MCHC 32.7 % 32.6-35.4 RDW 14.7 % High 11.4-14.6 PLT 267 10^3/M3 140-350 MPV 9.4 CUMICR 7.0-10.6 %Neut 49.4 % 40.0-75.0 %Lymph 29.9 % 17.0-45.0 %Evans 9.2 % 1.0-11.0 %Eos 9.7 % High 0.0-6.0 %Baso 1.8 % 0.0-2.0 #Neut 3.9 10^3/M3 1.5-8.0 #Lymph 2.4 10^3/M3 0.8-3.2 #Evans 0.7 10^3/M3 0.0-0.8 #Eos 0.8 10^3/m3 High 0.0-0.4 #Baso 0.1 10^3/m3 0.0-0.2 Comp. Met 05/22/2023 [facility]. 1 [place], [place] [address] [phone] Glucose 80 mg/dL 70-110 BUN 14 mg/dL [...] 2.0-3.4 GFR 91 ML/MIN/1.73SQM >60 Lipid 05/22/2023 [facility]. [address] [place] [address] [phone] Cholesterol 185 mg/dL 0-200 9 Triglyceride 193 mg/dL High 0-150 10 HDLD 73 mg/dL See Comment 11 Measured LDL 91 mg/dL 0-130 12 Calc VLDL 38.6 mg/dL See Comment 13 Chol/HDL 2.5 RATIO See Comment 14 Non-HDL 112 mg/dL See Comment 15 T3/T4/TSH 05/22/2023 [facility]. [address] [place] [address] [phone] T3 1.0 ng/mL 0.7-1.7 T4 10.0 g /dL 4.0-11.0 TSH 1.81 uIU/mL 0.50-6.00 Hba1c 05/22/2023 [facility]. [address] [place] [address] [phone] A1c 5.50 % 4.70-6.50 16 Urinalysis,Cult If Indicated 05/22/2023 [facility]. [address] [place] [address] [phone] RFLX Culture NO Urinalysis 05/22/2023 [facility]. [address] [place] [address] [phone] Color LIGHT-YEL LOW Appearance CLEAR Clear Spec.Grav. [...] Abnormal Not Present Laboratory test finding 05/22/[address] [facility] [place] [address] [phone] [place] 0.4 mmol/L Low 0.6-1.2 Clinical PDF Report [id number] SEE IMAGE 1 CHOLESTEROL Less than 200mg/dl [...] 240-10 Procedures Date Code Description Status 08/22/2023 02826 Venipuncture Routine [facility] ed 08/22/2023 3078F PVRP Diastolic BP <80 mmHg C ompleted 08/22/2023 3074F PVRP Systolic BP <130 mmHg C ompleted 05/22/2023 G9920 Scrning Perf And Negative Co mpleted 05/22/2023 25183 Venipuncture Routine [facility] ed 05/22/2023 3079F PVRP Diastolic BP 80-89 MMHG Completed 05/22/2023 3074F PVRP Systolic BP <130 mmHg C ompleted 06/10/2021 [id number] Mammogram Completed 01/07/2021 [id number] Colonoscopy Completed Medical Devices Description No Information [...] induced akathis ia Office Visit 05/22/2023 1:45p [facility] Vic edmondson, PA-C F31.89 Other bipolar disorder [...] 11:15 am - Vic Carl PA-C at [facility] 09/21/2023 - Vic Carl PA-C* N39.0 Urinary [...]
--- OUTSIDE RECORDS SUMMARY | 2023-10-05 17:50 | External Medical Summary | Continuity of Care Document ---
Author Name VIC ONEIL Address [address] [place] [address] Phone [phone] [facility] Address [address] [place] [address] Phone [phone] Care Team Providers Care Auto Claims Adjuster Name Role Phone [place] [facility] Care Team Information Customer Counter Associate [phone] Vic Oneil PA-C Care Team Information Rec eiver [phone] [place] [facility] [employer] Lead Teacher Care Team Information Receive r [phone] Problems Active Problems Provider Date Medial epicondylitis Vic Oneil PA-C Ons et: 07/26/2017 Polyneuropathy Vic Oneil PA-C Onset: 09/25/2016 Polyosteoarthritis, unspecified Vic gonzalez PA-C Onset: 07/26/2017 Manic bipolar I disorder Vic Oneil PA-C Onset: 07/26/2017 Urinary tract infectious disease Vic posada PA-C Onset: 09/29/2017 C/O - a back symptom Vic Oneil PA-C Ons et: 09/29/2017 Enthesopathy of hip region [place] Onset: 09/29/2017 Lymphadenopathy Vic Oneil PA-C Onset: 0 10/11/2017 Solitary nodule of lung Vic Oneil PA-C Onset: 03/13/2018 Chronic obstructive lung disease Vic posada PA-C Onset: 03/13/2018 Low back pain Vic Oneil PA-C Onset: 0 03/13/2018 Lateral epicondylitis Vic Oneil PA-C On set: 06/19/2018 Microscopic colitis Vic Oneil PA-C Onse t: 06/19/2018 Acute bronchitis Vic Oneil PA-C Onset: 08/02/2018 Pneumonia Vic Oneil PA-C Onset: 1 10/02/2017 Fibromyalgia Vic Oneil PA-C Onset: 1 10/02/2017 Mixed hyperlipidemia Vic Oneil PA-C Ons et: 02/19/2019 Stomatitis Vic Oneli PA-C Onset: 0 02/19/2019 Laceration of intrinsic musc le, fascia and tendon of right middle finger at wrist and hand level, initial encounter Vic Oneil PA-C Onset: 04/18/2019 Candidiasis of mouth Vic Oneil PA-C Ons et: 04/22/2019 Atopic dermatitis Vic Oniel PA-C Onset: 04/22/2019 Sciatica Vic Oneil PA-C Onset: 0 06/11/2019 Nausea Vic Oneil PA-C Onset: 0 06/11/2019 Irritable bowel syndrome yonis racterized by alternating bowel habit Vic Oneil PA-C Onset: 06/11/2019 Sleep dysfunction with arousal disturbance Carli Oneil PA-C Onset: 10/14/2019 Lichen planus Vic Oneil PA-C Onset: 0 11/18/2019 Social History Type [...] SIG Qnty Indications Order ing Provider Date Tzkpqqnbqkw889hc Tablets 1 tablet by mouth two times a day for 10 days 20tabs Rivka Wright MD 08/22/2023 - 09/01/2023 Propranolol WAG20jn Tablets Take one tab twice daily 180tabs G25.71 Rivka Wright MD 05/22/2023 Trazodone HUD82vz Tablets take 1 tablet by mouth everyday at bedtime 90tabs Rivka Wright MD 05/22/2023 Ketoconazole2% Shampoo apply ketoconazole shampoo 3 days in a row, leaving on for 5 min then rinse. repeat weekly. 360ml Rivka Wright MD 05/22/2023 Oddgbn3gm TBPK take as directed in pack 21units M25.551 Rivka Wright MD 05/22/2023 Bupropion Hydrochloride ER (XL)300mg Tablets ER 24HR Take 1 Tablet By Mouth Every Day - 90tabs Rivka Wright MD 05/22/2023 Ksmctxtlukg9cy Tablets Dispers 1 by mouth q6 hours as needed nausea 45tabs Rivka Wright MD 02/06/2023 Vafdntykug75oz Capsules 1 by mouth twice a day for pain/neuropathy 180caps G63 Rivka Wright MD 02/06/2023 Zziqrunyyphx4uz Tablets 1 tab by mouth daily 90tabs Rivka Wright MD 08/04/2022 Albuterol Sulfate ZSK827(90Base) mcg/Act Aerosol Inahle 2 Puffs Every 4-6 Hours as Needed Wheezing 18units J44.9 Trip Jarvis MD 06/13/2022 Trelegy Kfixxmq190-65.5-25mc g/Inh Aerosol take 1 puff by mouth every day 60Disk Rivka Wright MD 05/27/2022 Senexon-S8.6-50mg Tablets Take 2-3 Tablets AT Bedtime as Needed 90tabs Rivka Wright MD 04/12/2022 Lorazepam0.5mg Tablets Take 1 Tablet By Mouth Three Times A Day as Needed 90tabs Rivka Wright MD 06/20/2021 Ahbmwgaiq118kt Tablets take one tablet by mouth three times daily as needed - take with food 270tabs M50.10 Rivka Wright MD 06/08/2021 Atorvastatin Mpsieko33tu Tablets Take 1 Tablet By Mouth Every Evening 90tabs Lucian Ocampo JR, MD 11/21/2018 [place] Yiinfhhxx813ti Capsules take 1 capsule by mouth three times daily 90caps Rivka Wright MD History Medications Propranolol EVN75cl Tablets Take 1 Tablet By Mouth Twice A Day 60tabs G25.71 Rivka Wright MD 05/22/2023 - 05/22/2023 Propranolol XSE61hf Tablets 1 by mouth twice daily as needed 180tabs G25.71 Rivka Wright MD 04/16/2023 - 05/22/2023 Propranolol EAA76ce Tablets Take 1 Tablet By Mouth Twice A Day 60tabs G25.71 Rivka Wright MD 04/12/2023 - 04/16/2023 Medications Administered in Office Medication SIG Qnty Indications Ordering Provider Date Injection Kenalog 10 MG [facility] [id number] Kera Lion A-C 08/02/2018 Celestone Soluspan 3 MG 6MG/MLInjection Vic Oneil PA-C 0 06/19/2018 Injection Kenalog 10 MG [facility] [id number] Kera Lion A-C 07/26/2017 Injection Dexamethasone Sodium Phosphate, 1 MGInjection Vic Oneil PA-C 09/2016 Immunizations CPT Code Status Date Vaccine Lot # [id number] Given 07/25/2022 Influenza Virus Vaccine, Quadrivalent (Cciiv4), Derived From Cell [id number] Given 08/12/2021 Influenza Virus Vaccine, Quadrivalent (Cciiv4), Derived From 2 Given 02/17/2021 Moderna Sars-Co v-2 (Cov-19) vacc,100 mcg/ 0.5 mL 12Y+EMR Doc Only [id number] 03438 Given 01/20/2021 Moderna Sars-Co v-2 (Cov-19) vacc,100 mcg/ 0.5 mL 12Y+EMR Doc Only [id number] U-FLU Given 07/06/2020 Influenza,Unspecified 03422 Given 07/06/2020 Influenza Virus Vaccine, Quadrivalent (Cciiv4), Derived From 0 Given 07/26/2017 Influenza Virus Vaccine, Quadrivalent, Im Use U-FLU Given 07/26/2017 Influenza,Unspecified U-FLU Given 06/26/2016 Influenza,Unspecified U-FLU Given 2013 Influenza,Unspecified 99597 Given 2013 Influenza Vacci ne-Administered at another facility U-FLU Given 10/29/2012 Influenza,Unspecified 56654 Given 10/29/2012 Influenza Vacci ne-Administered at another facility 97008 Given 10/29/2012 Pneumococcal Vaccine/Pneu movax 23 53845 Given 02/23/2012 Pneumococcal Conjugate, P revnar 7 EMR Use Only U-FLU Given 07/26/2011 Influenza,Unspecified 77211 Given 07/26/2011 Influenza Vacci ne-Administered at another facility 34131 Given 08/15/2010 Tdap (Tetanus, diphtheria & acel. pertussis) Adacel or Boostrix 07534 Given 09/17/2008 TB Intradermal Test 75738 Given 09/03/2008 Influenza Vacci ne-Administered at another facility U-FLU Given 09/03/2008 Influenza,Unspecified 53133 Given 09/29/2006 Influenza Vacci ne-Administered at another facility U-FLU Given 09/29/2006 Influenza,Unspecified U-FLU Given 08/29/2005 Influenza,Unspecified 56037 Given 08/29/2005 Influenza Vacci ne-Administered at another facility 93663 Refused 04/27/2022 Pneumococcal Conjugate-Pr evnar 20 60333 Refused 04/27/2022 Shingrix 34530 Refused 04/27/2022 Influenza Virus Vaccine, Quadrivalent (Cciiv4), Derived From Cell 38229 Refused 04/27/2022 Moderna Covid-1 9 Vaccine 50mcg Booster-EMR Doc Only 69382 Refused 10/14/2019 Influenza Virus Vaccine, Quadrivalent (Cciiv4), Derived From Cell 65889 Refused 11/20/2018 Shingrix 95140 Refused 11/20/2018 Influenza Virus Vaccine, Quadrivalent (Cciiv4), Derived From Cell Vital Signs Date Vital Result Comment 08/22/2023 10:02am BP Systolic 120 mmHg BP Diastolic 76 mmHg Body Temperature 97.6 F Heart Rate 76 /min Weight 125.12 lb Weight 56.757 kg Height 63 inches 5'3" BMI (Body Mass Index) 22.2 kg/m2 O2 % BldC Oximetry 96 % [place] Body Weight 115 lb 05/22/2023 1:33pm BP Systolic 122 mmHg BP Diastolic 82 mmHg Body Temperature 97.8 F Heart Rate 88 /min Weight 124.00 lb Weight 56.246 kg Height 63 inches 5'3" BMI (Body Mass Index) 22.0 kg/m2 O2 % BldC Oximetry 96 % [place] Body Weight 115 lb Results Test Acquired Date Facility Test Result H/L [place] Laboratory test finding 08/22/2023 [facility] [place] [address] [phone] [place] <pending> CBC W/Diff 05/22/2023 [facility] [address] [place] [address] [phone] WBC 7.9 10^3/M3 3.1-9.2 RBC 4.01 10^6/M3 3.70-5.50 HGB 13.5 GR/DL 11.5-16.1 HCT 41.3 % 34.5-47.8 MCV 103.1 CUMICR High 82.6-95.8 MCH 33.7 PICOGR High 27.9-32.9 MCHC 32.7 % 32.6-35.4 RDW 14.7 % High 11.4-14.6 PLT 267 10^3/M3 140-350 MPV 9.4 CUMICR 7.0-10.6 %Neut 49.4 % 40.0-75.0 %Lymph 29.9 % 17.0-45.0 %[place] 9.2 % 1.0-11.0 %Eos 9.7 % High 0.0-6.0 %[place]o 1.8 % 0.0-2.0 #Neut 3.9 10^3/M3 1.5-8.0 #Lymph 2.4 10^3/M3 0.8-3.2 #[place] 0.7 10^3/M3 0.0-0.8 #Eos 0.8 10^3/m3 High 0.0-0.4 #Baso 0.1 10^3/m3 0.0-0.2 Comp. Met 05/22/2023 [facility] [address] [place] [address] [phone] Glucose 80 mg/dL 70-110 BUN 14 mg/dL [...] 2.0-3.4 GFR 91 ML/MIN/1.73SQM >60 Lipid 05/22/2023 [facility] [address] [place], [place] [address] [phone] Cholesterol 185 mg/dL 0-200 1 Triglyceride 193 mg/dL High 0-150 2 HDLD 73 mg/dL See Comment 3 Measured LDL 91 mg/dL 0-130 4 Calc VLDL 38.6 mg/dL See Comment 5 Chol/HDL 2.5 RATIO See Comment 6 Non-HDL 112 mg/dL See Comment 7 T3/T4/TSH 05/22/2023 [facility] [address] [place], [place] [address] [phone] T3 1.0 ng/mL 0.7-1.7 T4 10.0 g /dL 4.0-11.0 TSH 1.81 uIU/mL 0.50-6.00 Hba1c 05/22/2023 [facility] [address] [place], [place] [address] [phone] A1c 5.50 % 4.70-6.50 8 Urinalysis,Cult If Indicated 05/22/2023 [facility] [address] [place] [address] [phone] RFLX Culture NO Urinalysis 05/22/2023 [facility]. [address] [place] [address] [phone] Color LIGHT-YEL LOW Appearance CLEAR Clear Spec.Grav. [...] Abnormal Not Present Laboratory test finding 05/22/[address] [facility] [place] [address] [phone] [place] 0.4 mmol/L Low 0.6-1.2 Clinical PDF Report [id number] SEE IMAGE 1 CHOLESTEROL Less than 200mg/dl [...] 240-10 Procedures Date Code Description Status 08/22/2023 51363 Venipuncture Routine Complet ed 08/22/2023 3078F PVRP Diastolic BP <80 mmHg C ompleted 08/22/2023 3074F PVRP Systolic BP <130 mmHg C ompleted 05/22/2023 G9920 Scrning Perf And Negative Co mpleted 05/22/2023 85362 Venipuncture Routine Complet ed 05/22/2023 3079F PVRP Diastolic BP 80-89 MMHG Completed 05/22/2023 3074F PVRP Systolic BP <130 mmHg C ompleted 06/10/2021 44297239 Mammogram Completed 01/07/2021 25989283 Colonoscopy Completed Medical Devices Description No Information Available Encounters Type Date Location Provider Dx Diagnosis Office Visit 08/22/2023 10:30a Sylvia Oneil PA-C F31.89 Other bipolar disorder G24.01 Drug [...] Provider 08/22/2023 F31.89 Other bipolar disorder Carli Oneil PA-C 08/22/2023 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 Vic Oneil PA-C 08/22/2023 E78.5 Hyperlipidemia, unspecified Vic Oneil PA-C 08/22/2023 R73.01 Impaired fasting glucose Claudio Oneil PA-C 08/22/2023 I10 Essential (primary) hyperten lizbeth Vic Oneil PA-C 08/22/2023 J01.00 Acute maxillary sinusitis, u nspecified Vic Oneil PA-C 08/22/2023 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 Carli Oneil PA-C 05/22/2023 F31.89 Other bipolar disorder Carli Oneil PA-C 05/22/2023 E78.5 Hyperlipidemia, unspecified Vic Oneil PA-C 05/22/2023 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 Chjc-pit-pqcqunf decongestant as needed. Call the office if [...]
--- OUTSIDE RECORDS SUMMARY | 2023-10-05 17:50 | External Medical Summary | Continuity of Care Document ---
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 Care Team Information Receive r [phone] Problems Active Problems Provider Date Medial epicondylitis Vic Carl PA-C Ons et: 07/26/2017 Polyneuropathy Vic Carl PA-C Onset: 1 09/25/2016 Polyosteoarthritis, unspecified Vic gonzalez PA-C Onset: 07/26/2017 Manic bipolar I disorder Vic Carl PA-C Onset: 07/26/2017 Urinary tract infectious disease Vic posada PA-C Onset: 09/29/2017 C/O - a back symptom Vic Carl PA-C Ons et: 09/29/2017 Enthesopathy of hip region [place] i[place]on Onset: 09/29/2017 Lymphadenopathy Vic Carl PA-C Onset: [...] SIG Qnty Indications Order ing Provider Date Fjucrtwklpn667hv Tablets 1 tablet by mouth two times a day for 10 days 20tabs Rivka Wright MD 08/22/2023 - 09/01/2023 Propranolol TMY91gi Tablets Take one tab twice daily 180tabs G25.71 Rivka Wright MD 05/22/2023 Trazodone DRX34hq Tablets take 1 tablet by mouth everyday at bedtime 90tabs Rivka Wright MD 05/22/2023 Ketoconazole2% Shampoo apply ketoconazole shampoo 3 days in a row, leaving on for 5 min then rinse. repeat weekly. 360ml Rivka Wright MD 05/22/2023 Qqhzxk2bf TBPK take as directed in pack 21units M25.551 Rivka Wright MD 05/22/2023 Bupropion Hydrochloride ER (XL)300mg Tablets ER 24HR Take 1 Tablet By Mouth Every Day - 90tabs Rivka Wright MD 05/22/2023 Uansllhbwfg2iv Tablets Dispers 1 by mouth q6 hours as needed nausea 45tabs Rivka Wright MD 02/06/2023 Yerxzxzqdc36hl Capsules 1 by mouth twice a day for pain/neuropathy 180caps G63 Rivka Wright MD 02/06/2023 Jourmuaxtxzm1wg Tablets 1 tab by mouth daily 90tabs Rivka Wright MD 08/04/2022 Albuterol Sulfate DOB497(90Base) mcg/Act Aerosol Inahle 2 Puffs Every 4-6 Hours as Needed Wheezing 18units J44.9 Trip Jarvis MD 06/13/2022 Trelegy Kxsfmow985-16.5-25mc g/Inh Aerosol take 1 puff by mouth every day 60Disk Rivka Wright MD 05/27/2022 Senexon-S8.6-50mg Tablets Take 2-3 Tablets AT Bedtime as Needed 90tabs Rivka Wright MD 04/12/2022 Lorazepam0.5mg Tablets Take 1 Tablet By Mouth Three Times A Day as Needed 90tabs Rivka Wright MD 06/20/2021 Rpuyywitc133ny Tablets take one tablet by mouth three times daily as needed - take with food 270tabs M50.10 Rivka Wright MD 06/08/2021 Atorvastatin Eusmngq46wl Tablets Take 1 Tablet By Mouth Every Evening 90tabs Lucian Ocampo JR, MD 11/21/2018 [place] Ezuvnwnzy920eo Capsules take 1 capsule by mouth three times daily 90caps Rivka Wright MD History Medications Propranolol SPR36ip Tablets Take 1 Tablet By Mouth Twice A Day 60tabs G25.71 Rivka Wright MD 05/22/2023 - 05/22/2023 Propranolol UFJ39bg Tablets 1 by mouth twice daily as needed 180tabs G25.71 Rivka Wright MD 04/16/2023 - 05/22/2023 Propranolol HVH48hh Tablets Take 1 Tablet By Mouth Twice A Day 60tabs G25.71 Rivka Wright MD 04/12/2023 - 04/16/2023 Medications Administered in Office Medication SIG Qnty Indications Ordering Provider Date Injection Kenalog 10 MG ND [id number] Kera Lion-C 08/02/2018 Celestone Soluspan 3 MG 6MG/MLInjection Vic Carl PA-C 0 06/19/2018 Injection Kenalog 10 MG NDC [id number] Kera Lion A-C 07/26/2017 Injection Dexamethasone Sodium Phosphate, 1 MGInjection Vic Carl PA-C 1109/2016 Immunizations CPT Code Status Date Vaccine Lot # [id number] Given 07/25/2022 Influenza Virus Vaccine, Quadrivalent (Cciiv4), Derived From Cell [id number] 03562 Given 08/12/2021 Influenza Virus Vaccine, Quadrivalent (Cciiv4), Derived From 6 Given 02/17/2021 Moderna Sars-Co v-2 (Cov-19) vacc,100 mcg/ 0.5 mL 12Y+EMR Doc Only [id number] 73400 Given 01/20/2021 Moderna Sars-Co v-2 (Cov-19) vacc,100 mcg/ 0.5 mL 12Y+EMR Doc Only [id number] U-FLU Given 07/06/2020 Influenza,Unspecified 05784 Given 07/06/2020 Influenza Virus Vaccine, Quadrivalent (Cciiv4), Derived From 7 Given 07/26/2017 Influenza Virus Vaccine, Quadrivalent, Im Use U-FLU Given 07/26/2017 Influenza,Unspecified U-FLU Given 06/26/2016 Influenza,Unspecified U-FLU Given 2013 Influenza,Unspecified 02394 Given 2013 Influenza Vacci ne-Administered at another facility U-FLU Given 10/29/2012 Influenza,Unspecified 50934 Given 10/29/2012 Influenza Vacci ne-Administered at another facility 95858 Given 10/29/2012 Pneumococcal Vaccine/Pneu movax 23 82289 Given 02/23/2012 Pneumococcal Conjugate, P revnar 7 EMR Use Only U-FLU Given 07/26/2011 Influenza,Unspecified 33864 Given 07/26/2011 Influenza Vacci ne-Administered at another facility 36485 Given 08/15/2010 Tdap (Tetanus, diphtheria & acel. pertussis) Adacel or Boostrix 45699 Given 09/17/2008 TB Intradermal Test 38636 Given 09/03/2008 Influenza Vacci ne-Administered at another facility U-FLU Given 09/03/2008 Influenza,Unspecified 33764 Given 09/29/2006 Influenza Vacci ne-Administered at another facility U-FLU Given 09/29/2006 Influenza,Unspecified U-FLU Given 08/29/2005 Influenza,Unspecified 65526 Given 08/29/2005 Influenza Vacci ne-Administered at another facility 46499 Refused 04/27/2022 Pneumococcal Conjugate-Pr evnar 20 03043 Refused 04/27/2022 Shingrix 80153 Refused 04/27/2022 Influenza Virus Vaccine, Quadrivalent (Cciiv4), Derived From Cell 38922 Refused 04/27/2022 Moderna Covid-1 9 Vaccine 50mcg Booster-EMR Doc Only 93147 Refused 10/14/2019 Influenza Virus Vaccine, Quadrivalent (Cciiv4), Derived From Cell 16448 Refused 11/20/2018 Shingrix 24603 Refused 11/20/2018 Influenza Virus Vaccine, Quadrivalent (Cciiv4), Derived From Cell Vital Signs Date Vital Result Comment 08/22/2023 10:02am BP Systolic 120 mmHg BP Diastolic 76 mmHg Body Temperature 97.6 F Heart Rate 76 /min Weight 125.12 lb Weight 56.757 kg Height 63 inches 5'3" BMI (Body Mass Index) 22.2 kg/m2 O2 % BldC Oximetry 96 % [place] Body Weight 115 lb 05/22/2023 1:33pm BP Systolic 122 mmHg BP Diastolic 82 mmHg Body Temperature 97.8 F Heart Rate 88 /min Weight 124.00 lb Weight 56.246 kg Height 63 inches 5'3" BMI (Body Mass Index) 22.0 kg/m2 O2 % BldC Oximetry 96 % [place] Body Weight 115 lb Results Test Acquired Date Facility Test Result H/L [place] Laboratory test finding 08/22/2023 [facility] [address] [facility] [place] [address] [phone] [place] 0.8 mmol/L Normal 0.6-1.2 Clinical PDF Report [id number] SEE IMAGE CBC W/Diff 08/22/2023 [facility]. [address] [place], [place] [address] [phone] WBC 7.3 10^3/M3 3.1-9.2 RBC 4.20 10^6/M3 3.70-5.50 HGB 14.3 GR/DL 11.5-16.1 HCT 42.5 % 34.5-47.8 MCV 101.2 CUMICR High 82.6-95.8 MCH 34.2 PICOGR High 27.9-32.9 MCHC 33.8 % 32.6-35.4 RDW 13.7 % 11.4-14.6 PLT 276 10^3/M3 140-350 MPV 9.7 CUMICR 7.0-10.6 %Neut 55.5 % 40.0-75.0 %Lymph 29.6 % 17.0-45.0 %[place] 6.2 % 1.0-11.0 %Eos 6.3 % High 0.0-6.0 %Baso 2.4 % High 0.0-2.0 #Neut 4.0 10^3/M3 1.5-8.0 #Lymph 2.1 10^3/M3 0.8-3.2 #[place] 0.5 10^3/M3 0.0-0.8 #Eos 0.5 10^3/m3 High 0.0-0.4 #Baso 0.2 10^3/m3 0.0-0.2 Comp. Met 08/22/2023 [facility]. 1 [place], [place] [address] [phone] Glucose 89 mg/dL 70-110 BUN 11 mg/dL [...] 2.0-3.4 GFR 91 ML/MIN/1.73SQM >60 Lipid 08/22/2023 [facility] [address] [place], [place] [address]67 [phone] Cholesterol 188 mg/dL 0-200 1 Triglyceride 87 mg/dL 0-150 2 HDLD 79 mg/dL See Comment 3 Measured LDL 94 mg/dL 0-130 4 Calc VLDL 17.4 mg/dL See Comment 5 Chol/HDL 2.4 RATIO See Comment 6 Non-HDL 109 mg/dL See Comment 7 T3/T4/TSH 08/22/2023 [facility] [address] [place], [place] 97609[address] [phone] T3 1.1 ng/mL 0.7-1.7 T4 9.9 g /dL 4.0-11.0 TSH 1.61 uIU/mL 0.50-6.00 Hba1c 08/22/2023 [facility] [address] [place] [address] [phone] A1c 5.00 % 4.70-6.50 8 Urinalysis,Cult If Indicated 08/22/2023 [facility] [address] [place] [address] [phone] RFLX Culture NO Urinalysis 08/22/2023 [facility] [address] [place], [place] [address]65[address] [phone] Color LIGHT-YEL LOW Appearance CLEAR Clear Spec.Grav. 1.016 1.005-1.025 Leukocytes NEGATIVE Negative Nitrite NEGATIVE Negative PH 7.0 6.0-7.5 Protein NEGATIVE Negative Urine Glucose NEGATIVE Negative Ketone NEGATIVE Negative Urobilinogen NORMAL E.U./DL Normal Bilirubin NEGATIVE Negative Blood NEGATIVE Negative WBC-U 0-2 /HPF 0-5/HPF RBC-U 0-2 /HPF 0-5/HPF Bacteria NONE SEEN None Seen Squamous 6-10 /HPF Abnormal 0-5/HPF CBC W/Diff 05/22/2023 [facility] [address] [place] [address] [phone] WBC 7.9 10^3/M3 3.1-9.2 RBC 4.01 10^6/M3 3.70-5.50 HGB 13.5 GR/DL 11.5-16.1 HCT 41.3 % 34.5-47.8 MCV 103.1 CUMICR High 82.6-95.8 MCH 33.7 PICOGR High 27.9-32.9 MCHC 32.7 % 32.6-35.4 RDW 14.7 % High 11.4-14.6 PLT 267 10^3/M3 140-350 MPV 9.4 CUMICR 7.0-10.6 %Neut 49.4 % 40.0-75.0 %Lymph 29.9 % 17.0-45.0 %[place] 9.2 % 1.0-11.0 %Eos 9.7 % High 0.0-6.0 %Baso 1.8 % 0.0-2.0 #Neut 3.9 10^3/M3 1.5-8.0 #Lymph 2.4 10^3/M3 0.8-3.2 #[place] 0.7 10^3/M3 0.0-0.8 #Eos 0.8 10^3/m3 High 0.0-0.4 #Baso 0.1 10^3/m3 0.0-0.2 Comp. Met 05/22/2023 [facility] [address] [place] [address] [phone] Glucose 80 mg/dL 70-110 BUN 14 mg/dL [...] 2.0-3.4 GFR 91 ML/MIN/1.73SQM >60 Lipid 05/22/2023 [facility] [address] [place] [address] [phone] Cholesterol 185 mg/dL 0-200 9 Triglyceride 193 mg/dL High 0-150 10 HDLD 73 mg/dL See Comment 11 Measured LDL 91 mg/dL 0-130 12 Calc VLDL 38.6 mg/dL See Comment 13 Chol/HDL 2.5 RATIO See Comment 14 Non-HDL 112 mg/dL See Comment 15 T3/T4/TSH 05/22/2023 [facility] [address] [place], [place] 76[address]37 [phone] T3 1.0 ng/mL 0.7-1.7 T4 10.0 g /dL 4.0-11.0 TSH 1.81 uIU/mL 0.50-6.00 Hba1c 05/22/2023 [facility] [address] [place] [address] [phone] A1c 5.50 % 4.70-6.50 16 Urinalysis,Cult If Indicated 05/22/2023 [facility] [address] [place], [place] [address] [phone] RFLX Culture NO Urinalysis 05/22/2023 [facility] [address] [place] [address] [phone] Color LIGHT-YEL LOW Appearance CLEAR Clear Spec.Grav. [...] Abnormal Not Present Laboratory test finding 05/22/2023 [facility] [place] [address] [phone] [place] 0.4 mmol/L Low 0.6-1.2 Clinical PDF Report [id number] SEE IMAGE 1 CHOLESTEROL Less than 200mg/dl [...] 240-10 Procedures Date Code Description Status 08/22/2023 73628 Venipuncture Routine Complet ed 08/22/2023 3078F PVRP Diastolic BP <80 mmHg C ompleted 08/22/2023 3074F PVRP Systolic BP <130 mmHg C ompleted 05/22/2023 G9920 Scrning Perf And Negative Co mpleted 05/22/2023 95111 Venipuncture Routine [facility] ed 05/22/2023 3079F PVRP Diastolic BP 80-89 MMHG Completed 05/22/2023 3074F PVRP Systolic BP <130 mmHg C ompleted 06/10/2021 [id number] Mammogram Completed 01/07/2021 [id number] Colonoscopy Completed Medical Devices Description No Information [...] 11:15 am - Vic Carl PA-C at [place] 08/22/2023 - Vic Carl PA-C* F31.89 Other [...] resolving * Recommendations:* Drink plenty of fluids. Ujoo-new-rmfphbw decongestant as needed. Call the office if [...]
--- OUTSIDE RECORDS SUMMARY | 2023-10-05 17:50 | External Medical Summary | Continuity of Care Document ---
Author Name VIC ONEIL Address [address] [place] [address] Phone [phone] [facility] Address [address] [place] [address] Phone [phone] Care Team Providers Care Tow Motor Driver Name Role Phone [place] [facility] Care Team Information Manager Primary [phone] Vic Oneil PA-C Care Team Information Rec eiver [phone] [place] [employer] Care Team Information Receive r [phone] Problems Active Problems Provider Date Medial epicondylitis [...] Oneil PA-C Ons et: 02/19/2019 Stomatitis Vic Oneil PA-C Onset: 0 02/19/2019 Laceration of intrinsic musc le, fascia and tendon of right middle finger at wrist and hand level, initial encounter Vic Oneil PA-C Onset: 04/18/2019 Candidiasis of mouth Vic Oneil PA-C Ons et: 04/22/2019 Atopic dermatitis Vic Oneil PA-C Onset: 04/22/2019 Sciatica Vic Oneil PA-C Onset: 0 06/11/2019 Nausea Vic Oneil PA-C Onset: 0 06/11/2019 Irritable bowel syndrome yonis racterized by alternating bowel habit Vic Oneil PA-C Onset: 06/11/2019 Sleep dysfunction with arousal disturbance Carli Oneil PA-C Onset: 10/14/2019 Lichen planus Vic Oneil PA-C Onset: 0 11/18/2019 Social History Type Date Description Comments Sex Unknown Tobacco Use Reviewed: 05/22/23 Never Smoked Cigarette s Tobacco Use Reviewed: 05/22/23 Never Smoked Cigars Tobacco Use Reviewed: 05/22/23 Never Smoked A Pipe Smoking Status Reviewed: 05/22/23 Never Smoked A Pipe Smokeless Tobacco 05/22/2023 Never Used Smokeless To bacco ETOH Use Denies alcohol use Recreational Drug Use 10/16/2017 Formerly u sed Marijuana sporadically Allergies and adverse reactions Active Allergies Criticality Reaction | Severity Comments Date Cephalexin Unable to assess criticality 07/25/2017 Medications Active Medications SIG Qnty Indications Order ing Provider Date Trazodone FNS19fq Tablets Take 1 Tablet By Mouth Everyday AT Bedtime 90tabs Rivka Wright MD 05/22/2023 Ketoconazole2% Shampoo apply ketoconazole shampoo 3 days in a row, leaving on for 5 min then rinse. repeat weekly. 360ml Rivka Wright MD 05/22/2023 Vtuovx7dy TBPK take as directed in pack 21units M25.551 Rivka Wright MD 05/22/2023 Bupropion Hydrochloride ER (XL)300mg Tablets ER 24HR Take 1 Tablet By Mouth Every Day - 90tabs Rivka Wright MD 05/22/2023 Propranolol WQE51se Tablets Take one tab twice daily 180tabs G25.71 Rivka Wright MD 05/22/2023 Eounjzjqgtv6rz Tablets Dispers 1 by mouth q6 hours as needed nausea 45tabs Rivka Wright MD 02/06/2023 Fexbcstdpg82hh Capsules 1 by mouth twice a day for pain/neuropathy 180caps G63 Rivka Wright MD 02/06/2023 Laipefzokwbx4ye Tablets 1 tab by mouth daily 90tabs Rivka Wright MD 08/04/2022 Albuterol Sulfate OES517(90Base) mcg/Act Aerosol In[place]le 2 Puffs Every 4-6 Hours as Needed Wheezing 18units J44.9 Trip Jarvis MD 06/13/2022 Trelegy Dcqwrid123-75.5-25mc g/Inh Aerosol take 1 puff by mouth every day 60Disk Rivka Wright MD 05/27/2022 Senexon-S8.6-50mg Tablets Take 2-3 Tablets AT Bedtime as Needed 90tabs Rivka Wright MD 04/12/2022 Lorazepam0.5mg Tablets take 1 tablet by mouth three times a day as needed 90tabs Rivka Wright MD 06/20/2021 Mmkaewrbi260qc Tablets take one tablet by mouth three times daily as needed - take with food 270tabs M50.10 Rivka Wright MD 06/08/2021 Atorvastatin Obnegcg54al Tablets Take 1 Tablet By Mouth Every Evening 90tabs Lucian Ocampo JR, MD 11/21/2018 Suncook Qjxgbdhop040wn Capsules Take 1 Capsule By Mouth Twice A Day 60caps Trip Jarvis MD Amitriptyline LNH96sv Tablets Take 1 Tablet By Mouth Everyday AT Bedtime 90tabs Lucian Ocampo JR, MD History Medications Propranolol NZP41ii Tablets Take 1 Tablet By Mouth Twice A Day 60tabs G25.71 Rivka Wright MD 05/22/2023 - 05/22/2023 Propranolol FTG13vy Tablets 1 by mouth twice daily as needed 180tabs G25.71 Rivka Wright MD 04/16/2023 - 05/22/2023 Propranolol PMY55fy Tablets Take 1 Tablet By Mouth Twice A Day 60tabs G25.71 Rivka Wright MD 04/12/2023 - 04/16/2023 Propranolol WOL84wx Tablets Take one tab twice daily 180tabs G25.71 Rivka Wright MD 01/27/2023 - 04/12/2023 Propranolol OAW94lm Tablets Take one tab twice daily 60tabs G25.71 Rivka Wright MD 01/16/2023 - 01/27/2023 Medications Administered in Office Medication SIG Qnty Indications Ordering Provider Date Injection Kenalog 10 MG NDC [id number] Kera Lion A-C 08/02/2018 Celestone Soluspan 3 MG 6MG/MLInjection Vic Oneil PA-C 0 06/19/2018 Injection Kenalog 10 MG NDC [id number] Kera Lion A-C 07/26/2017 Injection Dexamethasone Sodium Phosphate, 1 MGInjection Vic Oneil PA-C 09/2016 Immunizations CPT Code Status Date Vaccine Lot # [id number] Given 07/25/2022 Influenza Virus Vaccine, Quadrivalent (Cciiv4), Derived From Cell [id number] 51204 Given 08/12/2021 Influenza Virus Vaccine, Quadrivalent (Cciiv4), Derived From 4 Given 02/17/2021 Moderna Sars-Co v-2 (Covid-19) vaccine, 100 mcg/ 0.5 mL 12Y+ [id number] 02303 Given 01/20/2021 Moderna Sars-Co v-2 (Covid-19) vaccine, 100 mcg/ 0.5 mL 12Y+ [id number] U-FLU Given 07/06/2020 Influenza,Unspecified 10977 Given 07/06/2020 Influenza Virus Vaccine, Quadrivalent (Cciiv4), Derived From 4 Given 07/26/2017 Influenza Virus Vaccine, Quadrivalent, Im Use U-FLU Given 07/26/2017 Influenza,Unspecified U-FLU Given 06/26/2016 Influenza,Unspecified U-FLU Given 2013 Influenza,Unspecified 67900 Given 2013 Influenza Vacci ne-Administered at another facility U-FLU Given 10/29/2012 Influenza,Unspecified 21477 Given 10/29/2012 Influenza Vacci ne-Administered at another facility 48778 Given 10/29/2012 Pneumococcal Vaccine/Pneu movax 23 02602 Given 02/23/2012 Pneumococcal Conjugate, P revnar 7 EMR Use Only U-FLU Given 07/26/2011 Influenza,Unspecified 94532 Given 07/26/2011 Influenza Vacci ne-Administered at another facility 54460 Given 08/15/2010 Tdap (Tetanus, diphtheria & acel. pertussis) Adacel or Boostrix 90293 Given 09/17/2008 TB Intradermal Test 40661 Given 09/03/2008 Influenza Vacci ne-Administered at another facility U-FLU Given 09/03/2008 Influenza,Unspecified 44434 Given 09/29/2006 Influenza Vacci ne-Administered at another facility U-FLU Given 09/29/2006 Influenza,Unspecified U-FLU Given 08/29/2005 Influenza,Unspecified 01712 Given 08/29/2005 Influenza Vacci ne-Administered at another facility 03182 Refused 04/27/2022 Pneumococcal Conjugate-Pr evnar 20 19004 Refused 04/27/2022 Shingrix 83842 Refused 04/27/2022 Influenza Virus Vaccine, Quadrivalent (Cciiv4), Derived From Cell 85120 Refused 04/27/2022 Moderna Covid-19 Vaccine 50mcg Booster 75894 Refused 10/14/2019 Influenza Virus Vaccine, Quadrivalent (Cciiv4), Derived From Cell [id number] Refused 11/20/2018 Shingrix [id number] Refused 11/20/2018 Influenza Virus Vaccine, Quadrivalent (Cciiv4), Derived From Cell Vital Signs Date Vital Result Comment 05/22/2023 1:33pm BP Systolic 122 mmHg BP Diastolic 82 mmHg Body Temperature 97.8 F Heart Rate 88 /min Weight 124.00 lb Weight 56.246 kg Height 63 inches 5'3" BMI (Body Mass Index) 22.0 kg/m2 O2 % BldC Oximetry 96 % [place] Body Weight 115 lb 02/06/2023 12:44pm BP Systolic 120 mmHg BP Diastolic 70 mmHg Body Temperature 98.7 F Heart Rate 74 /min Respiratory Rate 16 /min Weight 126.00 lb Weight 57.154 kg Height 63 inches 5'3" BMI (Body Mass Index) 22.3 kg/m2 [place] Body Weight 115 lb Results Test Acquired Date Facility Test Result H/L Range N ote CBC W/Diff 05/22/2023 [facility] [address] [place] [address] [phone] WBC 7.9 10^3/M3 3.1-9.2 RBC 4.01 10^6/M3 3.70-5.50 HGB 13.5 GR/DL 11.5-16.1 HCT 41.3 % 34.5-47.8 MCV 103.1 CUMICR High 82.6-95.8 MCH 33.7 PICOGR High 27.9-32.9 MCHC 32.7 % 32.6-35.4 RDW 14.7 % High 11.4-14.6 PLT 267 10^3/M3 140-350 MPV 9.4 CUMICR 7.0-10.6 %Neut 49.4 % 40.0-75.0 %Lymph 29.9 % 17.0-45.0 %[place] 9.2 % 1.0-11.0 %Eos 9.7 % High 0.0-6.0 %[place] 1.8 % 0.0-2.0 #Neut 3.9 10^3/M3 1.5-8.0 #Lymph 2.4 10^3/M3 0.8-3.2 #[place] 0.7 10^3/M3 0.0-0.8 #Eos 0.8 10^3/m3 High 0.0-0.4 #[place] 0.1 10^3/m3 0.0-0.2 Comp. Met 05/22/2023 [facility] [address] [place] [address] [phone] Glucose 80 mg/dL 70-110 BUN 14 mg/dL [...] 2.0-3.4 GFR 91 ML/MIN/1.73SQM >60 Lipid 05/22/2023 [facility] [address] [place] [address] [phone] Cholesterol 185 mg/dL 0-200 1 Triglyceride 193 mg/dL High 0-150 2 HDLD 73 mg/dL See Comment 3 Measured LDL 91 mg/dL 0-130 4 Calc VLDL 38.6 mg/dL See Comment 5 Chol/HDL 2.5 RATIO See Comment 6 Non-HDL 112 mg/dL See Comment 7 T3/T4/TSH 05/22/2023 [facility] [address] [place] [address] [phone] T3 1.0 ng/mL 0.7-1.7 T4 10.0 g /dL 4.0-11.0 TSH 1.81 uIU/mL 0.50-6.00 Hba1c 05/22/2023 [facility] [address] [place] [address] [phone] A1c 5.50 % 4.70-6.50 8 Urinalysis,Cult If Indicated 05/22/2023 [facility] [address] [place] [address] [phone] RFLX Culture NO Urinalysis 05/22/2023 [facility] [address] [place] [address] [phone] Color LIGHT-YEL LOW Appearance CLEAR Clear Spec.Grav. [...] Abnormal Not Present Laboratory test finding 05/22/[address] [place] [address] [phone] [place] 0.4 mmol/L Low 0.6-1.2 Clinical PDF Report [id number] SEE IMAGE Urine DIP (In Office) Manual 01/16/2023 [facility] (In Office Test) Ua Glucose negative Ua Bilirubin negative Ua Ketones negative Ua Specific [place] 1.010 Ua Blood negative Ua PH 6.5 Ua Protein negative Ua Urobilinogen normal Ua Nitrite negative Ua Leuko negative Urine Culture 01/16/2023 [facility] [address] [place] [address] [phone] Urine Source URINE Urc Comment INSIGNIFICANT GR <SEE NOTE> 9 Laboratory test finding 01/16/2023 [facility] [address] [place] [address] [phone] VB12 352 pg/mL 230-1050 CBC W/Diff 01/16/2023 [facility] [address] [place] [address] [phone] WBC 6.6 10 3.1-9.2 RBC 4.42 10 3.70-5.50 HGB 14.6 GR/DL 11.5-16.1 HCT 43.9 % 34.5-47.8 MCV 99.3 CUMICR High 82.6-95.8 MCH 33.0 PICOGR High 27.9-32.9 MCHC 33.2 % 32.6-35.4 RDW 13.5 % 11.4-14.6 PLT 233 10 140-350 MPV 9.4 CUMICR 7.0-10.6 %Neut 59.9 % 40.0-75.0 %Lymph 25.4 % 17.0-45.0 %[place] 8.2 % 1.0-11.0 %Eos 4.8 % 0.0-6.0 %[place] 1.7 % 0.0-2.0 #Neut 3.9 10 1.5-8.0 #Lymph 1.7 10 0.8-3.2 #[place] 0.5 10 0.0-0.8 #Eos 0.3 10 0.0-0.4 #Baso 0.1 10 0.0-0.2 Comp. Met 01/16/2023 [facility] [address] [facility] [place] [address] [phone] Glucose 84 mg/dL 70-110 BUN 13 mg/dL 6-25 Creatinine 0.8 mg/dL 0.5-1.2 Sodium 134 mEq/L Low 135-145 Potassium 4.0 mEq/L 3.5-5.0 Chloride 100 mEq/L 95-107 Co-2 24 mEq/L 24-31 Alk Phos 68 IU/L 43-122 Alt(SGPT) 9 IU/L Low 10-40 Ast(Sgot) 17 IU/L 3-42 T.Bilirubin 0.5 mg/dL 0.1-1.3 Calcium 10.0 mg/dL 8.5-10.6 Tot.Protein 7.0 g/dL 5.8-8.0 Albumin 4.6 g/dL 3.0-5.2 Globulin 2.4 g/dL 2.0-3.4 GFR 78 >60 Laboratory test finding 01/16/[address] [place] [address] [phone] [place] 0.6 mmol/L Normal 0.6-1.2 Clinical PDF Report [id number] SEE IMAGE 1 CHOLESTEROL Less than 200mg/dl [...] 330-13 150-7 90-5 300-12 270-11 240-10 9 INSIGNIFICANT GROWTH Procedures Date Code Description Status 05/22/2023 G9920 Scrning Perf And Negative Co mpleted 05/22/2023 88360 Venipuncture Routine Complet ed 05/22/2023 3079F PVRP Diastolic BP 80-89 MMHG Completed 05/22/2023 3074F PVRP Systolic BP <130 mmHg C ompleted 01/17/2023 G2012 Phone Evaluation/Management By Physician 21-30 Min Completed 01/16/2023 67612 Venipuncture Routine [facility] ed 06/10/2021 [id number] Mammogram Completed 01/07/2021 [id number] Colonoscopy Completed Medical Devices Description No Information Available Encounters Type Date Location Provider Dx Diagnosis Office Visit 05/22/2023 1:45p Sylvia Oneil PA-C F31.89 Other bipolar disorder E78.5 Hyperlipidemia, unsp ecified 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 G63 Polyneuropathy in di seases classified elsewhere L21.0 Seborrhea capitis R73.01 Impaired fasting glu cose I10 Essential (primary) hypertension Office Visit 02/06/2023 1:00p Sylvia edmondson PA-C F31.89 Other bipolar disorder G63 Polyneuropathy in di seases classified elsewhere J44.9 Chronic obstructive pulmonary disease, unspecified G25.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 akathis ia Office Visit 01/17/2023 11:30a Sylvia murillo MD 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 R32 Unspecified urinary incontinence Office Visit 01/16/2023 10:00a Sylvia murillo MD 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 R35.0 Frequency of micturi tion Assessments Date Code Description Provider 05/22/2023 F31.89 Other bipolar disorder KOSTAS JosephC 05/22/2023 E78.5 Hyperlipidemia, unspecified [place] Lion-C 05/22/2023 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 DOM[place] Lion-C 05/22/2023 G63 Polyneuropathy i n diseases classified elsewhere [place] Lion-C 05/22/2023 L21.0 Seborrhea capitis [place] Lion-C 05/22/2023 R73.01 Impaired fasting glucose [place] Mayer-C 05/22/2023 I10 Essential (primary) hyperten lizbeth [place] Lion-C 02/06/2023 F31.89 Other bipolar disorder KOSTAS JosephC 02/06/2023 G63 Polyneuropathy i n diseases classified elsewhere [place] Lion-C 02/06/2023 J44.9 Chronic obstruct david pulmonary disease, unspecified KOSTAS LionC 02/06/2023 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 [place] Joseph-C 01/17/2023 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 Андрей Vides MD 01/17/2023 R32 Unspecified urinary incontin nathene Rivka Wright MD 01/16/2023 R32 Unspecified urinary incontin KOSTAS WooC 01/16/2023 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 Андрей Vides MD 01/16/2023 R35.0 Frequency of micturition Gabriela Wrihgt MD 01/13/2023 R32 Unspecified urinary incontin ence Vic Oneil PA-C Plan of Treatment Future Appointment(s):* 08/22/2023 10:30 am - Vic Oneil PA-C at [facility] 05/22/2023 - Vic Oneil PA-C* F31.89 Other bipolar disorder* Comments:* Denies suicidal or homicidal ideations Abilify decreased due to tardive dyskinesia Symptoms improved somewhat * E78.5 Hyperlipidemia, unspecified* Comments:* Continue current medication. Decrease sugar and carbohydrates in diet. Increase exercise as tolerated Repeat labs today * Recommendations:* Low-fat, low-cholesterol diet. Exercise. * G24.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 subacute dyskinesia* Comments:* Symptoms improved Avoid on starting any other antipsychotics * G63 Polyneuropathy in diseases classified elsewhere* Comments:* Unable to tolerate gabapentin or Lyrica Severe neuropathic pain and fibromyalgia especially atbedtime * L21.0 Seborrhea capitis* Comments:* Use ketoconazole shampoo Medrol Dosepak Notify us if symptoms do not improve * R73.01 Impaired fasting glucose * I10 Essential (primary) hypertension * All* New Medication:* Propranolol HCL 20 mg - Take one tab twice daily * Trazodone HCL 50 mg - Take 1 Tablet By Mouth Everyday AT Bedtime * Ketoconazole 2 % - apply ketoconazole shampoo 3 days in a row, leaving on for 5 min then rinse. repeat weekly. * Medrol 4 mg - take as directed in pack * Bupropion Hydrochloride ER (XL) 300 mg - Take 1 Tablet By Mouth Every Day - * Propranolol HCL 10 mg - Take 1 Tablet By Mouth Twice A Day * Follow up:* Follow up 3 months Functional Status Description No Information Available Mental Status Description No Information Available Referrals Description No Information Available
--- OUTSIDE RECORDS SUMMARY | 2023-10-05 17:50 | External Medical Summary ---
Continuity of Care Document (CCD) Created on: August 22, 2023 Susan Rascon External Reference #: [id number] : [id number] Sex: Female Author Name VIC ONEIL Address [address] [place] [address] Phone [phone] [facility] Address [address] [place] [address] Phone [phone] Care Team Providers Care Fire Protection Equipment Technician Name Role Phone [facility] Care Team Information Lens Generator [phone] Vic Oneil PA-C Care Team Information Rec eiver [phone] [employer] Patternmaker Care Team Information Receive r [phone] Problems Active Problems Provider Date Medial epicondylitis [...] SIG Qnty Indications Order ing Provider Date Qbapvszwkgj978ls Tablets 1 tablet by mouth two times a day for 10 days 20tabs Rivka Wright MD 08/22/2023 - 09/01/2023 Propranolol ZYT72xy Tablets Take one tab twice daily 180tabs G25.71 Rivka Wright MD 05/22/2023 Trazodone RBV85qc Tablets take 1 tablet by mouth everyday at bedtime 90tabs Rivka Wright MD 05/22/2023 Ketoconazole2% Shampoo apply ketoconazole shampoo 3 days in a row, leaving on for 5 min then rinse. repeat weekly. 360ml Rivka Wright MD 05/22/2023 Amnidl2vx TBPK take as directed in pack 21units M25.551 Rivka Wright MD 05/22/2023 Bupropion Hydrochloride ER (XL)300mg Tablets ER 24HR Take 1 Tablet By Mouth Every Day - 90tabs Rivka Wright MD 05/22/2023 Zuazqoevyuc5hj Tablets Dispers 1 by mouth q6 hours as needed nausea 45tabs Rivka Wright MD 02/06/2023 Oycrsjvhju22ux Capsules 1 by mouth twice a day for pain/neuropathy 180caps G63 Rivka Wright MD 02/06/2023 Vkrmkwwngemp8ul Tablets 1 tab by mouth daily 90tabs Rivka Wright MD 08/04/2022 Albuterol Sulfate JKP306(90Base) mcg/Act Aerosol Inahle 2 Puffs Every 4-6 Hours as Needed Wheezing 18units J44.9 Trip Jarvis MD 06/13/2022 Trelegy Fzyxpaf597-50.5-25mc g/Inh Aerosol take 1 puff by mouth every day 60Disk Rivka Wright MD 05/27/2022 Senexon-S8.6-50mg Tablets Take 2-3 Tablets AT Bedtime as Needed 90tabs Rivka Wright MD 04/12/2022 Lorazepam0.5mg Tablets Take 1 Tablet By Mouth Three Times A Day as Needed 90tabs Rivka Wright MD 06/20/2021 Auyfulwuh851sl Tablets take one tablet by mouth three times daily as needed - take with food 270tabs M50.10 Rivka Wright MD 06/08/2021 Atorvastatin Ptqnsfs25af Tablets Take 1 Tablet By Mouth Every Evening 90tabs Lucian Ocampo JR, MD 11/21/2018 [place] Fwohykiwl938kk Capsules take 1 capsule by mouth three times daily 90caps Rivka Wright MD History Medications Propranolol WVH41zd Tablets Take 1 Tablet By Mouth Twice A Day 60tabs G25.71 Rivka Wright MD 05/22/2023 - 05/22/2023 Propranolol HJD99ur Tablets 1 by mouth twice daily as needed 180tabs G25.71 Rivka Wright MD 04/16/2023 - 05/22/2023 Propranolol AZW75qp Tablets Take 1 Tablet By Mouth Twice A Day 60tabs G25.71 Rivka Wright MD 04/12/2023 - 04/16/2023 Medications Administered in Office Medication SIG Qnty Indications Ordering Provider Date Injection Kenalog 10 MG [facility] [id number] Kera Lion A-C 08/02/2018 Celestone Soluspan 3 MG 6MG/MLInjection Vic Oneil PA-C 0 06/19/2018 Injection Kenalog 10 MG [facility] [id number] Kera Lion A-C 07/26/2017 Injection Dexamethasone Sodium Phosphate, 1 MGInjection Vic Oneil PA-C 09/2016 Immunizations CPT Code Status Date Vaccine Lot # [id number] Given 07/25/2022 Influenza Virus Vaccine, Quadrivalent (Cciiv4), Derived From Cell [id number] 34399 Given 08/12/2021 Influenza Virus Vaccine, Quadrivalent (Cciiv4), Derived From 3 Given 02/17/2021 Moderna Sars-Co v-2 (Cov-19) vacc,100 mcg/ 0.5 mL 12Y+EMR Doc Only [id number] 05458 Given 01/20/2021 Moderna Sars-Co v-2 (Cov-19) vacc,100 mcg/ 0.5 mL 12Y+EMR Doc Only [id number] U-FLU Given 07/06/2020 Influenza,Unspecified 63122 Given 07/06/2020 Influenza Virus Vaccine, Quadrivalent (Cciiv4), Derived From 7 Given 07/26/2017 Influenza Virus Vaccine, Quadrivalent, Im Use U-FLU Given 07/26/2017 Influenza,Unspecified U-FLU Given 06/26/2016 Influenza,Unspecified U-FLU Given 2013 Influenza,Unspecified 14338 Given 2013 Influenza Vacci ne-Administered at another facility U-FLU Given 10/29/2012 Influenza,Unspecified 81979 Given 10/29/2012 Influenza Vacci ne-Administered at another facility 73816 Given 10/29/2012 Pneumococcal Vaccine/Pneu movax 23 02599 Given 02/23/2012 Pneumococcal Conjugate, P revnar 7 EMR Use Only U-FLU Given 07/26/2011 Influenza,Unspecified 58594 Given 07/26/2011 Influenza Vacci ne-Administered at another facility 36356 Given 08/15/2010 Tdap (Tetanus, diphtheria & acel. pertussis) Adacel or Boostrix 01050 Given 09/17/2008 TB Intradermal Test 09457 Given 09/03/2008 Influenza Vacci ne-Administered at another facility U-FLU Given 09/03/2008 Influenza,Unspecified 10723 Given 09/29/2006 Influenza Vacci ne-Administered at another facility U-FLU Given 09/29/2006 Influenza,Unspecified U-FLU Given 08/29/2005 Influenza,Unspecified 32580 Given 08/29/2005 Influenza Vacci ne-Administered at another facility 44971 Refused 04/27/2022 Pneumococcal Conjugate-Pr evnar 20 11362 Refused 04/27/2022 Shingrix 94268 Refused 04/27/2022 Influenza Virus Vaccine, Quadrivalent (Cciiv4), Derived From Cell 58659 Refused 04/27/2022 Moderna Covid-1 9 Vaccine 50mcg Booster-EMR Doc Only 39158 Refused 10/14/2019 Influenza Virus Vaccine, Quadrivalent (Cciiv4), Derived From Cell 32550 Refused 11/20/2018 Shingrix 88671 Refused 11/20/2018 Influenza Virus Vaccine, Quadrivalent (Cciiv4), Derived From Cell Vital Signs Date Vital Result Comment 08/22/2023 10:02am BP Systolic 120 mmHg BP Diastolic 76 mmHg Body Temperature 97.6 F Heart Rate 76 /min Weight 125.12 lb Weight 56.757 kg Height 63 inches 5'3" BMI (Body Mass Index) 22.2 kg/m2 O2 % BldC Oximetry 96 % [place] Body Weight 115 lb 05/22/2023 1:33pm BP Systolic 122 mmHg BP Diastolic 82 mmHg Body Temperature 97.8 F Heart Rate 88 /min Weight 124.00 lb Weight 56.246 kg Height 63 inches 5'3" BMI (Body Mass Index) 22.0 kg/m2 O2 % BldC Oximetry 96 % [place] Body Weight 115 lb Results Test Acquired Date Facility Test Result H/L Range N ote Laboratory test finding 08/22/2023 [facility] [place] [address] [phone] [place] <pending> CBC W/Diff 05/22/2023 [facility] [address] [place] [address] [phone] WBC 7.9 10^3/M3 3.1-9.2 RBC 4.01 10^6/M3 3.70-5.50 HGB 13.5 GR/DL 11.5-16.1 HCT 41.3 % 34.5-47.8 MCV 103.1 CUMICR High 82.6-95.8 MCH 33.7 PICOGR High 27.9-32.9 MCHC 32.7 % 32.6-35.4 RDW 14.7 % High 11.4-14.6 PLT 267 10^3/M3 140-350 MPV 9.4 CUMICR 7.0-10.6 %Neut 49.4 % 40.0-75.0 %Lymph 29.9 % 17.0-45.0 %[place] 9.2 % 1.0-11.0 %Eos 9.7 % High 0.0-6.0 %[place] 1.8 % 0.0-2.0 #Neut 3.9 10^3/M3 1.5-8.0 #Lymph 2.4 10^3/M3 0.8-3.2 #[place] 0.7 10^3/M3 0.0-0.8 #Eos 0.8 10^3/m3 High 0.0-0.4 #Baso 0.1 10^3/m3 0.0-0.2 Comp. Met 05/22/2023 [facility] [address] [place] [address] [phone] Glucose 80 mg/dL 70-110 BUN 14 mg/dL [...] 2.0-3.4 GFR 91 ML/MIN/1.73SQM >60 Lipid 05/22/2023 [facility] [address] [place], [place] [id number] [phone] Cholesterol 185 mg/dL 0-200 1 Triglyceride 193 mg/dL High 0-150 2 HDLD 73 mg/dL See Comment 3 Measured LDL 91 mg/dL 0-130 4 Calc VLDL 38.6 mg/dL See Comment 5 Chol/HDL 2.5 RATIO See Comment 6 Non-HDL 112 mg/dL See Comment 7 T3/T4/TSH 05/22/2023 [facility] [address] [place], [place] [address] [phone] T3 1.0 ng/mL 0.7-1.7 T4 10.0 g /dL 4.0-11.0 TSH 1.81 uIU/mL 0.50-6.00 Hba1c 05/22/2023 [facility] [address] [place], [place] [id number] [phone] A1c 5.50 % 4.70-6.50 8 Urinalysis,Cult If Indicated 05/22/2023 [facility]. [address] [place] [address] [phone] RFLX Culture NO Urinalysis 05/22/2023 [facility]. [address] [facility] [place] [address] [phone] Color LIGHT-YEL LOW Appearance CLEAR Clear Spec.Grav. [...] Abnormal Not Present Laboratory test finding 05/22/[address] [facility] [place] [address] [phone] [place] 0.4 mmol/L Low 0.6-1.2 Clinical PDF Report [id number] SEE IMAGE 1 CHOLESTEROL Less than 200mg/dl [...] 240-10 Procedures Date Code Description Status 08/22/2023 05878 Venipuncture Routine Complet ed 08/22/2023 3078F PVRP Diastolic BP <80 mmHg C ompleted 08/22/2023 3074F PVRP Systolic BP <130 mmHg C ompleted 05/22/2023 G9920 Scrning Perf And Negative Co mpleted 05/22/2023 40847 Venipuncture Routine Complet ed 05/22/2023 3079F PVRP Diastolic BP 80-89 MMHG Completed 05/22/2023 3074F PVRP Systolic BP <130 mmHg C ompleted 06/10/2021 00030462 Mammogram Completed 01/07/2021 [id number] Colonoscopy Completed Medical Devices Description No Information [...] Description Provider 08/22/2023 F31.89 Other bipolar disorder Caril Oneil PA-C 08/22/2023 G24.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 subacute [...] 11:15 am - Vic Oneil PA-C at [place] 08/22/2023 - Vic Oneil PA-C* F31.89 Other [...] resolving * Recommendations:* Drink plenty of fluids. Mcdf-dvw-kfgqpiw decongestant as needed. Call the office if [...]
--- OUTSIDE RECORDS SUMMARY | 2023-10-05 17:51 | External Medical Summary | Continuity of Care Document ---
Author Name TATE ONEIL Address [address] [place] [address] Phone [phone] [facility] Address [address] [place] [address] Phone [phone] Care Team Providers Care Blender Operator Name Role Phone [facility]3] Care Team Information Waste Salvager [phone] Tate Oneil PA-C Care Team Information Rec eiver [phone] [place] [employer] Operator [employer] Care Team Information Receive r [phone] Problems Active Problems Provider Date Medial epicondylitis Tate Oneil PA-C Ons et: 07/26/2017 Polyneuropathy Tate Oneil PA-C Onset: 09/25/2016 Polyosteoarthritis, unspecified Tate gonzalez PA-C Onset: 07/26/2017 Manic bipolar I disorder Tate Oneil PA-C Onset: 07/26/2017 Urinary tract infectious disease Tate posada PA-C Onset: 09/29/2017 C/O - a back symptom Tate Oneil PA-C Ons et: 09/29/2017 Enthesopathy of hip region [place] Onset: 09/29/2017 Lymphadenopathy Tate Oneil PA-C Onset: 0 10/11/2017 Solitary nodule of lung Tate Oneil PA-C Onset: 03/13/2018 Chronic obstructive lung disease Tate posada PA-C Onset: 03/13/2018 Low back pain Tate Oneil PA-C Onset: 0 03/13/2018 Lateral epicondylitis Tate Oneil PA-C On set: 06/19/2018 Microscopic colitis Tate Oneil PA-C Onse t: 06/19/2018 Acute bronchitis Tate Oneil PA-C Onset: 08/02/2018 Pneumonia Tate Oneil PA-C Onset: 1 10/02/2017 Fibromyalgia Tate Oneil PA-C Onset: 1 10/02/2017 Mixed hyperlipidemia Tate Oneil PA-C Ons et: 02/19/2019 Stomatitis Tate Oneil PA-C Onset: 0 02/19/2019 Laceration of intrinsic musc le, fascia and tendon of right middle finger at wrist and hand level, initial encounter Tate Oneil PA-C Onset: 04/18/2019 Candidiasis of mouth Tate Oneil PA-C Ons et: 04/22/2019 Atopic dermatitis Tate Oneil PA-C Onset: 04/22/2019 Sciatica Tate Oneil PA-C Onset: 0 06/11/2019 Nausea Tate Oneil PA-C Onset: 0 06/11/2019 Irritable bowel syndrome yonis racterized by alternating bowel habit Tate Oneil PA-C Onset: 06/11/2019 Sleep dysfunction with arousal disturbance Carli Oneil PA-C Onset: 10/14/2019 Lichen planus Tate Oneil PA-C Onset: 0 11/18/2019 Social History [...] Qnty Indications Order ing Provider Date Trazodone EXY34xd Tablets Take 1 Tablet By Mouth Everyday AT Bedtime 90tabs Rivka Wright MD 05/22/2023 Ketoconazole2% Shampoo apply ketoconazole shampoo 3 days in a row, leaving on for 5 min then rinse. repeat weekly. 360ml Rivka Wright MD 05/22/2023 Xkvtun1rk TBPK take as directed in pack 21units M25.551 Rivka Wright MD 05/22/2023 Bupropion Hydrochloride ER (XL)300mg Tablets ER 24HR Take 1 Tablet By Mouth Every Day - 90tabs Rivka Wright MD 05/22/2023 Propranolol VFC90af Tablets Take one tab twice daily 180tabs G25.71 Rivka Wright MD 05/22/2023 Cbtfazvdzyv2xc Tablets Dispers 1 by mouth q6 hours as needed nausea 45tabs Rivka Wright MD 02/06/2023 Fhmuyejllx33sn Capsules 1 by mouth twice a day for pain/neuropathy 180caps G63 Rivka Wright MD 02/06/2023 Cfrgpjcosdeg7gq Tablets 1 tab by mouth daily 90tabs Rivka Wright MD 08/04/2022 Albuterol Sulfate DHV888(90Base) mcg/Act Aerosol Inahle 2 Puffs Every 4-6 Hours as Needed Wheezing 18units J44.9 Trip Jarvis MD 06/13/2022 Trelegy Xdzhfdq260-07.5-25mc g/Inh Aerosol take 1 puff by mouth every day 60Disk Rivka Wright MD 05/27/2022 Senexon-S8.6-50mg Tablets Take 2-3 Tablets AT Bedtime as Needed 90tabs Rivka Wright MD 04/12/2022 Lorazepam0.5mg Tablets take 1 tablet by mouth three times a day as needed 90tabs Rivka Wright MD 06/20/2021 Kgyngcvep723qz Tablets take one tablet by mouth three times daily as needed - take with food 270tabs M50.10 Rivka Wright MD 06/08/2021 Atorvastatin Xklkoyh39ju Tablets Take 1 Tablet By Mouth Every Evening 90tabs Lucian Ocampo JR, MD 11/21/2018 [place] Bavpxbqjp011jd Capsules Take 1 Capsule By Mouth Twice A Day 60caps Trip Jarvis MD Amitriptyline FOQ21tf Tablets Take 1 Tablet By Mouth Everyday AT Bedtime 90tabs Lucian Ocampo JR, MD History Medications Propranolol KUD27sb Tablets Take 1 Tablet By Mouth Twice A Day 60tabs G25.71 Rivka Wright MD 05/22/2023 - 05/22/2023 Propranolol HKN38ds Tablets 1 by mouth twice daily as needed 180tabs G25.71 Rivka Wright MD 04/16/2023 - 05/22/2023 Propranolol UFF35lj Tablets Take 1 Tablet By Mouth Twice A Day 60tabs G25.71 Rivka Wright MD 04/12/2023 - 04/16/2023 Propranolol IOL79fz Tablets Take one tab twice daily 180tabs G25.71 Rivka Wright MD 01/27/2023 - 04/12/2023 Propranolol DOA42qw Tablets Take one tab twice daily 60tabs G25.71 Rivka Wright MD 01/16/2023 - 01/27/2023 Medications Administered in Office Medication SIG Qnty Indications Ordering Provider Date Injection Kenalog 10 MG NDC [id number] Kera Lion A-C 08/02/2018 Celestone Soluspan 3 MG 6MG/MLInjection Tate Oneil PA-C 0 06/19/2018 Injection Kenalog 10 MG NDC [id number] Kera Lion A-C 07/26/2017 Injection Dexamethasone Sodium Phosphate, 1 MGInjection Tate Oneil PA-C 09/2016 Immunizations CPT Code Status Date Vaccine Lot # [id number] Given 07/25/2022 Influenza Virus Vaccine, Quadrivalent (Cciiv4), Derived From Cell [id number] 63461 Given 08/12/2021 Influenza Virus Vaccine, Quadrivalent (Cciiv4), Derived From 3 Given 02/17/2021 Moderna Sars-Co v-2 (Covid-19) vaccine, 100 mcg/ 0.5 mL 12Y+ [id number] 23478 Given 01/20/2021 Moderna Sars-Co v-2 (Covid-19) vaccine, 100 mcg/ 0.5 mL 12Y+ [id number] U-FLU Given 07/06/2020 Influenza,Unspecified 20104 Given 07/06/2020 Influenza Virus Vaccine, Quadrivalent (Cciiv4), Derived From 2 Given 07/26/2017 Influenza Virus Vaccine, Quadrivalent, Im Use U-FLU Given 07/26/2017 Influenza,Unspecified U-FLU Given 06/26/2016 Influenza,Unspecified U-FLU Given 2013 Influenza,Unspecified 12761 Given 2013 Influenza Vacci ne-Administered at another facility U-FLU Given 10/29/2012 Influenza,Unspecified 09103 Given 10/29/2012 Influenza Vacci ne-Administered at another facility 22561 Given 10/29/2012 Pneumococcal Vaccine/Pneu movax 23 32535 Given 02/23/2012 Pneumococcal Conjugate, P revnar 7 EMR Use Only U-FLU Given 07/26/2011 Influenza,Unspecified 19543 Given 07/26/2011 Influenza Vacci ne-Administered at another facility 10793 Given 08/15/2010 Tdap (Tetanus, diphtheria & acel. pertussis) Adacel or Boostrix 69300 Given 09/17/2008 TB Intradermal Test 34847 Given 09/03/2008 Influenza Vacci ne-Administered at another facility U-FLU Given 09/03/2008 Influenza,Unspecified 76296 Given 09/29/2006 Influenza Vacci ne-Administered at another facility U-FLU Given 09/29/2006 Influenza,Unspecified U-FLU Given 08/29/2005 Influenza,Unspecified 86562 Given 08/29/2005 Influenza Vacci ne-Administered at another facility 12867 Refused 04/27/2022 Pneumococcal Conjugate-Pr evnar 20 27173 Refused 04/27/2022 Shingrix 42574 Refused 04/27/2022 Influenza Virus Vaccine, Quadrivalent (Cciiv4), Derived From Cell 36393 Refused 04/27/2022 Moderna Covid-19 Vaccine 50mcg Booster 20027 Refused 10/14/2019 Influenza Virus Vaccine, Quadrivalent (Cciiv4), Derived From Cell 41178 Refused 11/20/2018 Shingrix 13683 Refused 11/20/2018 Influenza Virus Vaccine, Quadrivalent (Cciiv4), Derived From Cell Vital Signs Date Vital Result Comment 05/22/2023 1:33pm BP Systolic 122 mmHg BP Diastolic 82 mmHg Body Temperature 97.8 F Heart Rate 88 /min Weight 124.00 lb Weight 56.246 kg Height 63 inches 5'3" BMI (Body Mass Index) 22.0 kg/m2 O2 % BldC Oximetry 96 % [place] Body Weight 115 lb 02/06/2023 12:44pm BP Systolic 120 mmHg BP Diastolic 70 mmHg Body Temperature 98.7 F Heart Rate 74 /min Respiratory Rate 16 /min Weight 126.00 lb Weight 57.154 kg Height 63 inches 5'3" BMI (Body Mass Index) 22.3 kg/m2 [place] Body Weight 115 lb Results Test Acquired Date Facility Test Result H/L Range N ote CBC W/Diff 05/22/2023 [facility]. 1 [place] [address] [phone] WBC 7.9 10^3/M3 3.1-9.2 RBC 4.01 10^6/M3 3.70-5.50 HGB 13.5 GR/DL 11.5-16.1 HCT 41.3 % 34.5-47.8 MCV 103.1 CUMICR High 82.6-95.8 MCH 33.7 PICOGR High 27.9-32.9 MCHC 32.7 % 32.6-35.4 RDW 14.7 % High 11.4-14.6 PLT 267 10^3/M3 140-350 MPV 9.4 CUMICR 7.0-10.6 %Neut 49.4 % 40.0-75.0 %Lymph 29.9 % 17.0-45.0 %[place] 9.2 % 1.0-11.0 %Eos 9.7 % High 0.0-6.0 %[place] 1.8 % 0.0-2.0 #Neut 3.9 10^3/M3 1.5-8.0 #Lymph 2.4 10^3/M3 0.8-3.2 #[place] 0.7 10^3/M3 0.0-0.8 #Eos 0.8 10^3/m3 High 0.0-0.4 #[place] 0.1 10^3/m3 0.0-0.2 Comp. Met 05/22/2023 [facility] [address] [place] [address] [phone] Glucose 80 mg/dL 70-110 BUN 14 mg/dL [...] 2.0-3.4 GFR 91 ML/MIN/1.73SQM >60 Lipid 05/22/2023 [facility] [address] [place] [address] [phone] Cholesterol 185 mg/dL 0-200 1 Triglyceride 193 mg/dL High 0-150 2 HDLD 73 mg/dL See Comment 3 Measured LDL 91 mg/dL 0-130 4 Calc VLDL 38.6 mg/dL See Comment 5 Chol/HDL 2.5 RATIO See Comment 6 Non-HDL 112 mg/dL See Comment 7 T3/T4/TSH 05/22/2023 [facility]. [address] [place] [address] [phone] T3 1.0 ng/mL 0.7-1.7 T4 10.0 g /dL 4.0-11.0 TSH 1.81 uIU/mL 0.50-6.00 Hba1c 05/22/2023 [facility]. [address] [place] [address] [phone] A1c 5.50 % 4.70-6.50 8 Urinalysis,Cult If Indicated 05/22/2023 [facility] [address] [place] [address] [phone] RFLX Culture NO Urinalysis 05/22/2023 [facility] [address] [place] [address] [phone] Color LIGHT-YEL LOW Appearance CLEAR Clear Spec.Grav. [...] Abnormal Not Present Laboratory test finding 05/22/[address] [facility] [place] [address] [phone] [place] <pending> Urine DIP (In Office) Manual 01/16/2023 [facility] (In Office Test) Ua Glucose negative Ua Bilirubin negative Ua Ketones negative Ua Specific [place] 1.010 Ua Blood negative Ua PH 6.5 Ua Protein negative Ua Urobilinogen normal Ua Nitrite negative Ua Leuko negative Urine Culture 01/16/2023 [facility] [address] [place] [address] [phone] Urine Source URINE Urc Comment INSIGNIFICANT GR <SEE NOTE> 9 Laboratory test finding 01/16/2023 [facility] [address] [place] [address] [phone] VB12 352 pg/mL 230-1050 CBC W/Diff 01/16/2023 [facility] 1 [place], [place] [address] [phone] WBC 6.6 10 3.1-9.2 RBC 4.42 10 3.70-5.50 HGB 14.6 GR/DL 11.5-16.1 HCT 43.9 % 34.5-47.8 MCV 99.3 CUMICR High 82.6-95.8 MCH 33.0 PICOGR High 27.9-32.9 MCHC 33.2 % 32.6-35.4 RDW 13.5 % 11.4-14.6 PLT 233 10 140-350 MPV 9.4 CUMICR 7.0-10.6 %Neut 59.9 % 40.0-75.0 %Lymph 25.4 % 17.0-45.0 %[place] 8.2 % 1.0-11.0 %Eos 4.8 % 0.0-6.0 %[place] 1.7 % 0.0-2.0 #Neut 3.9 10 1.5-8.0 #Lymph 1.7 10 0.8-3.2 #[place] 0.5 10 0.0-0.8 #Eos 0.3 10 0.0-0.4 #Baso 0.1 10 0.0-0.2 Comp. Met 01/16/2023 [facility] [address] [place] [address] [phone] Glucose 84 mg/dL 70-110 BUN 13 mg/dL [...] GFR 78 >60 Laboratory test finding 01/16/[address] [place] [address] [phone] [place] 0.6 mmol/L Normal 0.6-1.2 Clinical PDF Report [id number] SEE IMAGE 1 CHOLESTEROL Less than 200mg/dl [...] Scrning Perf And Negative Co mpleted 05/22/2023 92940 Venipuncture Routine Complet ed 05/22/2023 3079F PVRP Diastolic BP 80-89 MMHG Completed 05/22/2023 3074F PVRP Systolic BP <130 mmHg C ompleted 01/17/2023 G2012 Phone Evaluation/Management By Physician 21-30 Min Completed 01/16/2023 99367 Venipuncture Routine Complet ed 06/10/2021 46744151 Mammogram Completed 01/07/2021 [id number] Colonoscopy Completed Medical Devices Description No Information [...] Description Provider 05/22/2023 F31.89 Other bipolar disorder Claudiolyric KOSTAS GarcíaC 05/22/2023 E78.5 Hyperlipidemia, unspecified KOSTAS LionC 05/22/2023 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 [place] Lion-C 05/22/2023 G63 Polyneuropathy i n diseases classified elsewhere KOSTAS LionC 05/22/2023 L21.0 Seborrhea capitis KOSTAS LionC 05/22/2023 R73.01 Impaired fasting glucose KOSTAS MayerC 05/22/2023 I10 Essential (primary) hyperten lizbeth KOSTAS LionC 02/06/2023 F31.89 Other bipolar disorder Claudiolyric KOSTAS GarcíaC 02/06/2023 G63 Polyneuropathy i n diseases classified elsewhere KOSTAS LionC 02/06/2023 J44.9 Chronic obstruct david pulmonary disease, unspecified KOSTAS LionC 02/06/2023 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 KOSTAS JosephC 01/17/2023 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
--- OUTSIDE RECORDS SUMMARY | 2023-10-05 17:51 | External Medical Summary | Continuity of Care Document ---
Author Name VIC ONEIL Address [address] [place] [address] Phone [phone] [facility] Address [address] [place] [address] Phone [phone] Care Team Providers Care Energy Specialist Name Role Phone [facility] Care Team Information Gyn Physician [phone] Vic Oneil PA-C Care Team Information Rec eiver [phone] Millis Prick Stitcher Care Team Information Receive r [phone] Problems Active Problems Provider Date Medial epicondylitis [...] Qnty Indications Order ing Provider Date Trazodone AQV12no Tablets Take 1 Tablet By Mouth Everyday AT Bedtime 90tabs Rivka Wright MD 05/22/2023 Ketoconazole2% Shampoo apply ketoconazole shampoo 3 days in a row, leaving on for 5 min then rinse. repeat weekly. 360ml Rivka Wright MD 05/22/2023 Gesjlz3rh TBPK take as directed in pack 21units M25.551 Rivka Wright MD 05/22/2023 Bupropion Hydrochloride ER (XL)300mg Tablets ER 24HR Take 1 Tablet By Mouth Every Day - 90tabs Rivka Wright MD 05/22/2023 Propranolol DXV94qy Tablets Take one tab twice daily 180tabs G25.71 Rivka Wright MD 05/22/2023 Nnbvtnqbgjz4jw Tablets Dispers 1 by mouth q6 hours as needed nausea 45tabs Rivka Wright MD 02/06/2023 Ymizxavsif04eb Capsules 1 by mouth twice a day for pain/neuropathy 180caps G63 Rivka Wright MD 02/06/2023 Nqphokibmoje9so Tablets 1 tab by mouth daily 90tabs Rivka Wright MD 08/04/2022 Albuterol Sulfate IAC811(90Base) mcg/Act Aerosol [place]le 2 Puffs Every 4-6 Hours as Needed Wheezing 18units J44.9 Trip Jarvis MD 06/13/2022 Trelegy Qwiudcj892-07.5-25mc g/Inh Aerosol take 1 puff by mouth every day 60Disk Rivka Wright MD 05/27/2022 Senexon-S8.6-50mg Tablets Take 2-3 Tablets AT Bedtime as Needed 90tabs Rivka Wright MD 04/12/2022 Lorazepam0.5mg Tablets take 1 tablet by mouth three times a day as needed 90tabs Rivka Wright MD 06/20/2021 Aaczyeyvq683jm Tablets take one tablet by mouth three times daily as needed - take with food 270tabs M50.10 Rivka Wright MD 06/08/2021 Atorvastatin Sqwrlcu76ur Tablets Take 1 Tablet By Mouth Every Evening 90tabs Lucian Ocampo JR, MD 11/21/2018 [place] Idspiirwe142vs Capsules Take 1 Capsule By Mouth Twice A Day 60caps Trip Jarvis MD Amitriptyline OIK51at Tablets Take 1 Tablet By Mouth Everyday AT Bedtime 90tabs Lucian Ocampo JR, MD History Medications Propranolol FQT54ki Tablets Take 1 Tablet By Mouth Twice A Day 60tabs G25.71 Rivka Wright MD 05/22/2023 - 05/22/2023 Propranolol CMR27qf Tablets 1 by mouth twice daily as needed 180tabs G25.71 Rivka Wright MD 04/16/2023 - 05/22/2023 Propranolol AVJ97tx Tablets Take 1 Tablet By Mouth Twice A Day 60tabs G25.71 Rivka Wright MD 04/12/2023 - 04/16/2023 Propranolol XZP08zk Tablets Take one tab twice daily 180tabs G25.71 Rivka Wright MD 01/27/2023 - 04/12/2023 Propranolol GTO68cv Tablets Take one tab twice daily 60tabs G25.71 Rivka Wright MD 01/16/2023 - 01/27/2023 Medications Administered in Office Medication SIG Qnty Indications Ordering Provider Date Injection Kenalog 10 MG NDC [id number] [place] A-C 08/02/2018 Celestone Soluspan 3 MG 6MG/MLInjection Vic Oneil PA-C 0 06/19/2018 Injection Kenalog 10 MG NDC [id number] [place] A-C 07/26/2017 Injection Dexamethasone Sodium Phosphate, 1 MGInjection Vic Oneil PA-C 09/2016 Immunizations CPT Code Status Date Vaccine Lot # [id number] Given 07/25/2022 Influenza Virus Vaccine, Quadrivalent (Cciiv4), Derived From Cell [id number] Given 08/12/2021 Influenza Virus Vaccine, Quadrivalent (Cciiv4), Derived From 3 Given 02/17/2021 Moderna Sars-Co v-2 (Covid-19) vaccine, 100 mcg/ 0.5 mL 12Y+ [id number] 02866 Given 01/20/2021 Moderna Sars-Co v-2 (Covid-19) vaccine, 100 mcg/ 0.5 mL 12Y+ [id number] U-FLU Given 07/06/2020 Influenza,Unspecified 65406 Given 07/06/2020 Influenza Virus Vaccine, Quadrivalent (Cciiv4), Derived From 9 Given 07/26/2017 Influenza Virus Vaccine, Quadrivalent, Im Use U-FLU Given 07/26/2017 Influenza,Unspecified U-FLU Given 06/26/2016 Influenza,Unspecified U-FLU Given 2013 Influenza,Unspecified 97349 Given 2013 Influenza Vacci ne-Administered at another facility U-FLU Given 10/29/2012 Influenza,Unspecified 71255 Given 10/29/2012 Influenza Vacci ne-Administered at another facility 56900 Given 10/29/2012 Pneumococcal Vaccine/Pneu movax 23 45652 Given 02/23/2012 Pneumococcal Conjugate, P revnar 7 EMR Use Only U-FLU Given 07/26/2011 Influenza,Unspecified 66448 Given 07/26/2011 Influenza Vacci ne-Administered at another facility 82650 Given 08/15/2010 Tdap (Tetanus, diphtheria & acel. pertussis) Adacel or Boostrix 98173 Given 09/17/2008 TB Intradermal Test 32364 Given 09/03/2008 Influenza Vacci ne-Administered at another facility U-FLU Given 09/03/2008 Influenza,Unspecified 86545 Given 09/29/2006 Influenza Vacci ne-Administered at another facility U-FLU Given 09/29/2006 Influenza,Unspecified U-FLU Given 08/29/2005 Influenza,Unspecified 08334 Given 08/29/2005 Influenza Vacci ne-Administered at another facility 29854 Refused 04/27/2022 Pneumococcal Conjugate-Pr evnar 20 33386 Refused 04/27/2022 Shingrix 32113 Refused 04/27/2022 Influenza Virus Vaccine, Quadrivalent (Cciiv4), Derived From Cell 72346 Refused 04/27/2022 Moderna Covid-19 Vaccine 50mcg Booster 60097 Refused 10/14/2019 Influenza Virus Vaccine, Quadrivalent (Cciiv4), Derived From Cell 35683 Refused 11/20/2018 Shingrix 61122 Refused 11/20/2018 Influenza Virus Vaccine, Quadrivalent (Cciiv4), Derived From Cell Vital Signs Date Vital Result Comment 05/22/2023 1:33pm BP Systolic 122 mmHg BP Diastolic 82 mmHg Body Temperature 97.8 F Heart Rate 88 /min Weight 124.00 lb Weight 56.246 kg Height 63 inches 5'3" BMI (Body Mass Index) 22.0 kg/m2 O2 % BldC Oximetry 96 % [place] Body Weight 115 lb 02/06/2023 12:44pm BP Systolic 120 mmHg BP Diastolic 70 mmHg Body Temperature 98.7 F Heart Rate 74 /min Respiratory Rate 16 /min Weight 126.00 lb Weight 57.154 kg Height 63 inches 5'3" BMI (Body Mass Index) 22.3 kg/m2 [place] Body Weight 115 lb Results Test Acquired Date Facility Test Result H/L Range [place] Laboratory test finding 05/22/[address] [facility] [place] [address] [phone] [place] <pending> Urine DIP (In Office) Manual 01/16/2023 [facility] (In Office Test) Ua Glucose negative Ua Bilirubin negative Ua Ketones negative Ua Specific [place] 1.010 Ua Blood negative Ua PH 6.5 Ua Protein negative Ua Urobilinogen normal Ua Nitrite negative Ua Leuko negative Urine Culture 01/16/2023 [facility] [address] [place], [place] [address] [phone] Urine Source URINE Urc Comment INSIGNIFICANT GR <SEE NOTE> 1 Laboratory test finding 01/16/2023 [facility] [address] [place], [place] [address] [phone] VB12 352 pg/mL 230-1050 CBC W/Diff 01/16/2023 [facility] [address] [place], [place] [address] [phone] WBC 6.6 10 3.1-9.2 RBC 4.42 10 3.70-5.50 HGB 14.6 GR/DL 11.5-16.1 HCT 43.9 % 34.5-47.8 MCV 99.3 CUMICR High 82.6-95.8 MCH 33.0 PICOGR High 27.9-32.9 MCHC 33.2 % 32.6-35.4 RDW 13.5 % 11.4-14.6 PLT 233 10 140-350 MPV 9.4 CUMICR 7.0-10.6 %Neut 59.9 % 40.0-75.0 %Lymph 25.4 % 17.0-45.0 %[place] 8.2 % 1.0-11.0 %Eos 4.8 % 0.0-6.0 %Baso 1.7 % 0.0-2.0 #Neut 3.9 10 1.5-8.0 #Lymph 1.7 10 0.8-3.2 #[place] 0.5 10 0.0-0.8 #Eos 0.3 10 0.0-0.4 #Baso 0.1 10 0.0-0.2 Comp. Met 01/16/2023 [facility] [address] [place] [address] [phone] Glucose 84 mg/dL 70-110 BUN 13 mg/dL [...] GFR 78 >60 Laboratory test finding 01/16/[address] [facility] [place] [address] [phone] [place] 0.6 mmol/L Normal 0.6-1.2 Clinical PDF Report [id number] SEE IMAGE 1 INSIGNIFICANT GROWTH Procedures Date Code Description Status 05/22/2023 G9920 Scrning Perf And Negative Co mpleted 05/22/2023 67166 Venipuncture Routine Complet ed 05/22/2023 3079F PVRP Diastolic BP 80-89 MMHG Completed 05/22/2023 3074F PVRP Systolic BP <130 mmHg C ompleted 01/17/2023 G2012 Phone Evaluation/Management By Physician 21-30 Min Completed 01/16/2023 93335 Venipuncture Routine [facility] ed 06/10/2021 [id number] Mammogram Completed 01/07/2021 [id number] Colonoscopy Completed Medical Devices Description No Information Available Encounters Type Date Location Provider Dx Diagnosis Office Visit 05/22/2023 1:45p Sylvia Oneil PA-C F31.89 Other bipolar disorder E78.5 Hyperlipidemia, unsp ecified 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 G63 Polyneuropathy in [facility] classified elsewhere L21.0 Seborrhea capitis R73.01 Impaired fasting glu cose I10 Essential (primary) hypertension Office Visit 02/06/2023 1:00p Sylvia edmondson PA-C F31.89 Other bipolar disorder G63 Polyneuropathy in [facility] classified elsewhere J44.9 Chronic obstructive pulmonary disease, unspecified G25.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 akathis ia Office Visit 01/17/2023 11:30a Sylvia murillo MD 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 R32 Unspecified urinary incontinence Office Visit 01/16/2023 10:00a Sylvia murillo MD 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 R35.0 Frequency of micturi tion Assessments Date Code Description Provider 05/22/2023 F31.89 Other bipolar disorder Carli Oneil PA-C 05/22/2023 E78.5 Hyperlipidemia, unspecified Vic Oneil PA-C 05/22/2023 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 Vic Oneil PA-C 05/22/2023 G63 Polyneuropathy i n diseases classified elsewhere Vic Oneil PA-C 05/22/2023 L21.0 Seborrhea capitis Vic Oneil PA-C 05/22/2023 R73.01 Impaired fasting glucose Claudio Oneil PA-C 05/22/2023 I10 Essential (primary) hyperten lizbeth Vic Oneil PA-C 02/06/2023 F31.89 Other bipolar disorder Carli Oneil PA-C 02/06/2023 G63 Polyneuropathy i n diseases classified elsewhere Vic Oneil PA-C 02/06/2023 J44.9 Chronic obstruct david pulmonary disease, unspecified Vic Oneil PA-C 02/06/2023 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 Carli Oneil PA-C 01/17/2023 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 Андрей Vides MD 01/17/2023 R32 Unspecified urinary incontin philip Wright MD 01/16/2023 R32 Unspecified urinary incontin philip Oneil PA-C 01/16/2023 G25.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 akathiskeyonna Vides MD 01/16/2023 R35.0 Frequency of micturition Gabriela Wright MD 01/13/2023 R32 Unspecified urinary incontin philip Oneil PA-C Plan of Treatment Future Appointment(s):* 08/22/2023 10:30 am - Vic Oneil PA-C at [place] 05/22/2023 - Vic Oneil PA-C* F31.89 Other [...]
--- OUTSIDE RECORDS SUMMARY | 2023-10-05 17:51 | External Medical Summary | Continuity of Care Document ---
Author Name VIC ONEIL Address [address] [place] [address] Phone [phone] [facility] Address [address] [place] [address] Phone [phone] Care Team Providers Care Straightening Machine Operator Name Role Phone [facility] Care Team Information Executive Consultant [phone] Vic Oneil PA-C Care Team Information Rec eiver [phone] [place] [employer] Helper Care Team Information Receive r [phone] Problems Active Problems Provider Date Medial epicondylitis [...] Qnty Indications Order ing Provider Date Trazodone PIO08no Tablets Take 1 Tablet By Mouth Everyday AT Bedtime 90tabs Rivka Wright MD 05/22/2023 Ketoconazole2% Shampoo apply ketoconazole shampoo 3 days in a row, leaving on for 5 min then rinse. repeat weekly. 360ml Rivka Wright MD 05/22/2023 Eebfol2ry TBPK take as directed in pack 21units M25.551 Rivka Wright MD 05/22/2023 Bupropion Hydrochloride ER (XL)300mg Tablets ER 24HR Take 1 Tablet By Mouth Every Day - 90tabs Rivka Wright MD 05/22/2023 Propranolol WSL17mn Tablets Take one tab twice daily 180tabs G25.71 Rivka Wright MD 05/22/2023 Garwwbwjtmb7ia Tablets Dispers 1 by mouth q6 hours as needed nausea 45tabs Rivka Wright MD 02/06/2023 Kbxtdoycgb56kt Capsules 1 by mouth twice a day for pain/neuropathy 180caps G63 Rivka Wright MD 02/06/2023 Uigihcojpsqy1km Tablets 1 tab by mouth daily 90tabs Rivka Wright MD 08/04/2022 Albuterol Sulfate OXE497(90Base) mcg/Act Aerosol Inahle 2 Puffs Every 4-6 Hours as Needed Wheezing 18units J44.9 Trip Jarvis MD 06/13/2022 Trelegy Pzhnaxi345-92.5-25mc g/Inh Aerosol take 1 puff by mouth every day 60Disk Rivka Wright MD 05/27/2022 Senexon-S8.6-50mg Tablets Take 2-3 Tablets AT Bedtime as Needed 90tabs Rivka Wright MD 04/12/2022 Lorazepam0.5mg Tablets take 1 tablet by mouth three times a day as needed 90tabs Rivka Wright MD 06/20/2021 Vdhftomtq549dg Tablets take one tablet by mouth three times daily as needed - take with food 270tabs M50.10 Rivka Wright MD 06/08/2021 Atorvastatin Jsythal56ll Tablets Take 1 Tablet By Mouth Every Evening 90tabs Lucian Ocampo JR, MD 11/21/2018 [place] Vmtqdjfxc207zj Capsules Take 1 Capsule By Mouth Twice A Day 60caps Trip Jarvis MD Amitriptyline UXF86ou Tablets Take 1 Tablet By Mouth Everyday AT Bedtime 90tabs Lucian Ocampo JR, MD History Medications Propranolol VFU98vm Tablets Take 1 Tablet By Mouth Twice A Day 60tabs G25.71 Rivka Wright MD 05/22/2023 - 05/22/2023 Propranolol QAR65zc Tablets 1 by mouth twice daily as needed 180tabs G25.71 Rivka Wright MD 04/16/2023 - 05/22/2023 Propranolol ENJ50qa Tablets Take 1 Tablet By Mouth Twice A Day 60tabs G25.71 Rivka Wright MD 04/12/2023 - 04/16/2023 Propranolol PKM22he Tablets Take one tab twice daily 180tabs G25.71 Rivka Wright MD 01/27/2023 - 04/12/2023 Propranolol ADU76rd Tablets Take one tab twice daily 60tabs G25.71 Rivka Wright MD 01/16/2023 - 01/27/2023 Medications Administered in Office Medication SIG Qnty Indications Ordering Provider Date Injection Kenalog 10 MG NDC [id number] [place] A-C 08/02/2018 Celestone Soluspan 3 MG 6MG/MLInjection Vic Oneil PA-C 0 06/19/2018 Injection Kenalog 10 MG NDC 10353047678Umugibmpu [place] A-C 07/26/2017 Injection Dexamethasone Sodium Phosphate, 1 MGInjection Vic Oneil PA-C 09/2016 Immunizations CPT Code Status Date Vaccine Lot # [id number] Given 07/25/2022 Influenza Virus Vaccine, Quadrivalent (Cciiv4), Derived From Cell [id number] 27137 Given 08/12/2021 Influenza Virus Vaccine, Quadrivalent (Cciiv4), Derived From 1 Given 02/17/2021 Moderna Sars-Co v-2 (Covid-19) vaccine, 100 mcg/ 0.5 mL 12Y+ [id number] 74464 Given 01/20/2021 Moderna Sars-Co v-2 (Covid-19) vaccine, 100 mcg/ 0.5 mL 12Y+ [id number] U-FLU Given 07/06/2020 Influenza,Unspecified 49285 Given 07/06/2020 Influenza Virus Vaccine, Quadrivalent (Cciiv4), Derived From 2 Given 07/26/2017 Influenza Virus Vaccine, Quadrivalent, Im Use U-FLU Given 07/26/2017 Influenza,Unspecified U-FLU Given 06/26/2016 Influenza,Unspecified U-FLU Given 2013 Influenza,Unspecified 04386 Given 2013 Influenza Vacci ne-Administered at another facility U-FLU Given 10/29/2012 Influenza,Unspecified 86305 Given 10/29/2012 Influenza Vacci ne-Administered at another facility 55669 Given 10/29/2012 Pneumococcal Vaccine/Pneu movax 23 16399 Given 02/23/2012 Pneumococcal Conjugate, P revnar 7 EMR Use Only U-FLU Given 07/26/2011 Influenza,Unspecified 16945 Given 07/26/2011 Influenza Vacci ne-Administered at another facility 09277 Given 08/15/2010 Tdap (Tetanus, diphtheria & acel. pertussis) Adacel or Boostrix 57245 Given 09/17/2008 TB Intradermal Test 95379 Given 09/03/2008 Influenza Vacci ne-Administered at another facility U-FLU Given 09/03/2008 Influenza,Unspecified 64735 Given 09/29/2006 Influenza Vacci ne-Administered at another facility U-FLU Given 09/29/2006 Influenza,Unspecified U-FLU Given 08/29/2005 Influenza,Unspecified 84248 Given 08/29/2005 Influenza Vacci ne-Administered at another facility 84018 Refused 04/27/2022 Pneumococcal Conjugate-Pr evnar 20 00160 Refused 04/27/2022 Shingrix 77586 Refused 04/27/2022 Influenza Virus Vaccine, Quadrivalent (Cciiv4), Derived From Cell 16732 Refused 04/27/2022 Moderna Covid-19 Vaccine 50mcg Booster 52420 Refused 10/14/2019 Influenza Virus Vaccine, Quadrivalent (Cciiv4), Derived From Cell 63879 Refused 11/20/2018 Shingrix 05804 Refused 11/20/2018 Influenza Virus Vaccine, Quadrivalent (Cciiv4), Derived From Cell Vital Signs Date Vital Result Comment 05/22/2023 1:33pm BP Systolic 122 mmHg BP Diastolic 82 mmHg Body Temperature 97.8 F Heart Rate 88 /min Weight 124.00 lb Weight 56.246 kg Height 63 inches 5'3" BMI (Body Mass Index) 22.0 kg/m2 O2 % BldC Oximetry 96 % [place] Body Weight 115 lb 02/06/2023 12:44pm BP Systolic 120 mmHg BP Diastolic 70 mmHg Body Temperature 98.7 F Heart Rate 74 /min Respiratory Rate 16 /min Weight 126.00 lb Weight 57.154 kg Height 63 inches 5'3" BMI (Body Mass Index) 22.3 kg/m2 [place] Body Weight 115 lb Results Test Acquired Date Facility Test Result H/L Range N [place] Laboratory test finding 05/22/[address] [place] [address] [phone] [place] <pending> Urine DIP (In Office) Manual 01/16/2023 [facility] (In Office Test) Ua Glucose negative Ua Bilirubin negative Ua Ketones negative Ua Specific [place] 1.010 Ua Blood negative Ua PH 6.5 Ua Protein negative Ua Urobilinogen normal Ua Nitrite negative Ua Leuko negative Urine Culture 01/16/2023 [facility] [address] [place], [place] [address] [phone] Urine Source URINE Urc Comment INSIGNIFICANT GR <SEE NOTE> 1 Laboratory test finding 01/16/2023 [facility] [address] [place], [place] [address] [phone] VB12 352 pg/mL 230-1050 CBC W/Diff 01/16/2023 [facility] [address] [place], [place] [address] [phone] WBC 6.6 10 3.1-9.2 RBC 4.42 10 3.70-5.50 HGB 14.6 GR/DL 11.5-16.1 HCT 43.9 % 34.5-47.8 MCV 99.3 CUMICR High 82.6-95.8 MCH 33.0 PICOGR High 27.9-32.9 MCHC 33.2 % 32.6-35.4 RDW 13.5 % 11.4-14.6 PLT 233 10 140-350 MPV 9.4 CUMICR 7.0-10.6 %Neut 59.9 % 40.0-75.0 %Lymph 25.4 % 17.0-45.0 %[place] 8.2 % 1.0-11.0 %Eos 4.8 % 0.0-6.0 %Baso 1.7 % 0.0-2.0 #Neut 3.9 10 1.5-8.0 #Lymph 1.7 10 0.8-3.2 #[place] 0.5 10 0.0-0.8 #Eos 0.3 10 0.0-0.4 #Baso 0.1 10 0.0-0.2 Comp. Met 01/16/2023 [facility] [address] [place] [address] [phone] Glucose 84 mg/dL 70-110 BUN 13 mg/dL [...] GFR 78 >60 Laboratory test finding 01/16/[address] [place] [address] [phone] [place] 0.6 mmol/L Normal 0.6-1.2 Clinical PDF Report [id number] SEE IMAGE 1 INSIGNIFICANT GROWTH Procedures Date Code Description Status 05/22/2023 G9920 Scrning Perf And Negative Co mpleted 05/22/2023 82708 Venipuncture Routine Complet ed 05/22/2023 3079F PVRP Diastolic BP 80-89 MMHG Completed 05/22/2023 3074F PVRP Systolic BP <130 mmHg C ompleted 01/17/2023 G2012 Phone Evaluation/Management By Physician 21-30 Min Completed 01/16/2023 70460 Venipuncture Routine [facility] ed 06/10/2021 [id number] Mammogram Completed 01/07/2021 [id number] Colonoscopy Completed Medical Devices Description No Information Available Encounters Type Date Location Provider Dx Diagnosis Office Visit 05/22/2023 1:45p Sylvia Oneil PA-C F31.89 Other bipolar disorder E78.5 Hyperlipidemia, unsp ecified 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
--- OUTSIDE RECORDS SUMMARY | 2023-10-05 17:51 | External Medical Summary | Continuity of Care Document ---
Author Name TATE ONEIL Address [address] [place] [address] Phone [phone] [facility] Address [address] [place] [address] Phone [phone] Care Team Providers Care Discharge Specialist Name Role Phone [facility] Care Team Information Leaf Conditioner Helper [phone] Tate Oneil PA-C Care Team Information Rec eiver [phone] [place] Animation Camera Operator Care Team Information Receive r [phone] Problems Active Problems Provider Date Medial epicondylitis [...] Qnty Indications Order ing Provider Date Trazodone YBJ20cp Tablets Take 1 Tablet By Mouth Everyday AT Bedtime 90tabs Rivka Wright MD 05/22/2023 Ketoconazole2% Shampoo apply ketoconazole shampoo 3 days in a row, leaving on for 5 min then rinse. repeat weekly. 360ml Rivka Wright MD 05/22/2023 Ktxwvx1im TBPK take as directed in pack 21units M25.551 Rivka Wright MD 05/22/2023 Bupropion Hydrochloride ER (XL)300mg Tablets ER 24HR Take 1 Tablet By Mouth Every Day - 90tabs Rivka Wright MD 05/22/2023 Propranolol QOX47zw Tablets Take one tab twice daily 180tabs G25.71 Rivka Wright MD 05/22/2023 Jhibvshjree8pz Tablets Dispers 1 by mouth q6 hours as needed nausea 45tabs Rivka Wright MD 02/06/2023 Fxqcgevpnv32vn Capsules 1 by mouth twice a day for pain/neuropathy 180caps G63 Rivka Wright MD 02/06/2023 Nrbqtdwiwecn7eo Tablets 1 tab by mouth daily 90tabs Rivka Wright MD 08/04/2022 Albuterol Sulfate LFB977(90Base) mcg/Act Aerosol Inahle 2 Puffs Every 4-6 Hours as Needed Wheezing 18units J44.9 Trip Jarvis MD 06/13/2022 Trelegy Rpfsibl129-35.5-25mc g/Inh Aerosol take 1 puff by mouth every day 60Disk Rivka Wright MD 05/27/2022 Senexon-S8.6-50mg Tablets Take 2-3 Tablets AT Bedtime as Needed 90tabs Rivka Wright MD 04/12/2022 Lorazepam0.5mg Tablets take 1 tablet by mouth three times a day as needed 90tabs Rivka Wright MD 06/20/2021 Ffarqejle469po Tablets take one tablet by mouth three times daily as needed - take with food 270tabs M50.10 Rivka Wright MD 06/08/2021 Atorvastatin Hmbioem42bi Tablets Take 1 Tablet By Mouth Every Evening 90tabs Lucian Ocampo JR, MD 11/21/2018 [place] Ocdwzawpx491qu Capsules Take 1 Capsule By Mouth Twice A Day 60caps Trip Jarvis MD Amitriptyline JWB01vc Tablets Take 1 Tablet By Mouth Everyday AT Bedtime 90tabs Lucian Ocampo JR, MD History Medications Propranolol QZR53xm Tablets Take 1 Tablet By Mouth Twice A Day 60tabs G25.71 Rivka Wright MD 05/22/2023 - 05/22/2023 Propranolol UGL93pj Tablets 1 by mouth twice daily as needed 180tabs G25.71 Rivka Wright MD 04/16/2023 - 05/22/2023 Propranolol TNZ50nl Tablets Take 1 Tablet By Mouth Twice A Day 60tabs G25.71 Rivka Wright MD 04/12/2023 - 04/16/2023 Propranolol SYO87uy Tablets Take one tab twice daily 180tabs G25.71 Rivka Wright MD 01/27/2023 - 04/12/2023 Propranolol WUS31cw Tablets Take one tab twice daily 60tabs G25.71 Rivka Wright MD 01/16/2023 - 01/27/2023 Medications Administered in Office Medication SIG Qnty Indications Ordering Provider Date Injection Kenalog 10 MG NDC [id number] Kera Lion A-C 08/02/2018 Celestone Soluspan 3 MG 6MG/MLInjection Tate Oneil PA-C 0 06/19/2018 Injection Kenalog 10 MG NDC [id number] Kera Lion A-C 07/26/2017 Injection Dexamethasone Sodium Phosphate, 1 MGInjection Tate Oneil PA-C 09/2016 Immunizations CPT Code Status Date Vaccine Lot # [id number] Given 07/25/2022 Influenza Virus Vaccine, Quadrivalent (Cciiv4), Derived From Cell [id number] Given 08/12/2021 Influenza Virus Vaccine, Quadrivalent (Cciiv4), Derived From 4 Given 02/17/2021 Moderna Sars-Co v-2 (Covid-19) vaccine, 100 mcg/ 0.5 mL 12Y+ [id number] 79503 Given 01/20/2021 Moderna Sars-Co v-2 (Covid-19) vaccine, 100 mcg/ 0.5 mL 12Y+ [id number] U-FLU Given 07/06/2020 Influenza,Unspecified 02441 Given 07/06/2020 Influenza Virus Vaccine, Quadrivalent (Cciiv4), Derived From 3 Given 07/26/2017 Influenza Virus Vaccine, Quadrivalent, Im Use U-FLU Given 07/26/2017 Influenza,Unspecified U-FLU Given 06/26/2016 Influenza,Unspecified U-FLU Given 2013 Influenza,Unspecified 55940 Given 2013 Influenza Vacci ne-Administered at another facility U-FLU Given 10/29/2012 Influenza,Unspecified 06954 Given 10/29/2012 Influenza Vacci ne-Administered at another facility 48517 Given 10/29/2012 Pneumococcal Vaccine/Pneu movax 23 28462 Given 02/23/2012 Pneumococcal Conjugate, P revnar 7 EMR Use Only U-FLU Given 07/26/2011 Influenza,Unspecified 64682 Given 07/26/2011 Influenza Vacci ne-Administered at another facility 21853 Given 08/15/2010 Tdap (Tetanus, diphtheria & acel. pertussis) Adacel or Boostrix 52223 Given 09/17/2008 TB Intradermal Test 99873 Given 09/03/2008 Influenza Vacci ne-Administered at another facility U-FLU Given 09/03/2008 Influenza,Unspecified 59788 Given 09/29/2006 Influenza Vacci ne-Administered at another facility U-FLU Given 09/29/2006 Influenza,Unspecified U-FLU Given 08/29/2005 Influenza,Unspecified 53917 Given 08/29/2005 Influenza Vacci ne-Administered at another facility 62655 Refused 04/27/2022 Pneumococcal Conjugate-Pr evnar 20 29410 Refused 04/27/2022 Shingrix [id number] Refused 04/27/2022 Influenza Virus Vaccine, Quadrivalent (Cciiv4), Derived From Cell 22808 Refused 04/27/2022 Moderna Covid-19 Vaccine 50mcg Booster 53019 Refused 10/14/2019 Influenza Virus Vaccine, Quadrivalent (Cciiv4), Derived From Cell 45278 Refused 11/20/2018 Shingrix [id number] Refused 11/20/2018 Influenza Virus Vaccine, Quadrivalent (Cciiv4), Derived From Cell Vital Signs Date Vital Result Comment 05/22/2023 1:33pm BP Systolic 122 mmHg BP Diastolic 82 mmHg Body Temperature 97.8 F Heart Rate 88 /min Weight 124.00 lb Weight 56.246 kg Height 63 inches 5'3" BMI (Body Mass Index) 22.0 kg/m2 O2 % BldC Oximetry 96 % Sarah Body Weight 115 lb 02/06/2023 12:44pm BP Systolic 120 mmHg BP Diastolic 70 mmHg Body Temperature 98.7 F Heart Rate 74 /min Respiratory Rate 16 /min Weight 126.00 lb Weight 57.154 kg Height 63 inches 5'3" BMI (Body Mass Index) 22.3 kg/m2 Sarah Body Weight 115 lb Results Test Acquired Date Facility Test Result H/L Range N ote CBC W/Diff 05/22/2023 [facility] [address] [place] [address] [phone] WBC 7.9 10^3/M3 3.1-9.2 RBC 4.01 10^6/M3 3.70-5.50 HGB 13.5 GR/DL 11.5-16.1 HCT 41.3 % 34.5-47.8 MCV 103.1 CUMICR High 82.6-95.8 MCH 33.7 PICOGR High 27.9-32.9 MCHC 32.7 % 32.6-35.4 RDW 14.7 % High 11.4-14.6 PLT 267 10^3/M3 140-350 MPV 9.4 CUMICR 7.0-10.6 %Neut 49.4 % 40.0-75.0 %Lymph 29.9 % 17.0-45.0 %[place] 9.2 % 1.0-11.0 %Eos 9.7 % High 0.0-6.0 %Baso 1.8 % 0.0-2.0 #Neut 3.9 10^3/M3 1.5-8.0 #Lymph 2.4 10^3/M3 0.8-3.2 #[place] 0.7 10^3/M3 0.0-0.8 #Eos 0.8 10^3/m3 High 0.0-0.4 #Baso 0.1 10^3/m3 0.0-0.2 Comp. Met 05/22/2023 [facility] [address] [place] [address] [phone] Glucose 80 mg/dL 70-110 BUN 14 mg/dL [...] 2.0-3.4 GFR 91 ML/MIN/1.73SQM >60 Lipid 05/22/2023 [facility] [address] [place] [address] [phone] Cholesterol 185 mg/dL 0-200 1 Triglyceride 193 mg/dL High 0-150 2 HDLD 73 mg/dL See Comment 3 Measured LDL 91 mg/dL 0-130 4 Calc VLDL 38.6 mg/dL See Comment 5 Chol/HDL 2.5 RATIO See Comment 6 Non-HDL 112 mg/dL See Comment 7 T3/T4/TSH 05/22/2023 [facility] [address] [place] [address] [phone] T3 1.0 ng/mL 0.7-1.7 T4 10.0 g /dL 4.0-11.0 TSH 1.81 uIU/mL 0.50-6.00 Hba1c 05/22/2023 [facility] [address] [place] [address] [phone] A1c 5.50 % 4.70-6.50 8 Urinalysis,Cult If Indicated 05/22/2023 [facility] [address] [place] [address] [phone] RFLX Culture NO Urinalysis 05/22/2023 [facility] [address] [place] [address] [phone] Color LIGHT-YEL LOW Appearance CLEAR Clear Spec.Grav. [...] Abnormal Not Present Laboratory test finding 05/22/[address] [facility] [place] [address] [phone] [place] <pending> Urine DIP (In Office) Manual 01/16/2023 [facility] (In Office Test) Ua Glucose negative Ua Bilirubin negative Ua Ketones negative Ua Specific [place] 1.010 Ua Blood negative Ua PH 6.5 Ua Protein negative Ua Urobilinogen normal Ua Nitrite negative Ua Leuko negative Urine Culture 01/16/2023 [facility] [address] [place] [address] [phone] Urine Source URINE Urc Comment INSIGNIFICANT GR <SEE NOTE> 9 Laboratory test finding 01/16/2023 [facility] [address] [place] [address] [phone] VB12 352 pg/mL 230-1050 CBC W/Diff 01/16/2023 [facility] [address] [place], [place] [address] [phone] WBC 6.6 10 3.1-9.2 RBC 4.42 10 3.70-5.50 HGB 14.6 GR/DL 11.5-16.1 HCT 43.9 % 34.5-47.8 MCV 99.3 CUMICR High 82.6-95.8 MCH 33.0 PICOGR High 27.9-32.9 MCHC 33.2 % 32.6-35.4 RDW 13.5 % 11.4-14.6 PLT 233 10 140-350 MPV 9.4 CUMICR 7.0-10.6 %Neut 59.9 % 40.0-75.0 %Lymph 25.4 % 17.0-45.0 %[place] 8.2 % 1.0-11.0 %Eos 4.8 % 0.0-6.0 %Baso 1.7 % 0.0-2.0 #Neut 3.9 10 1.5-8.0 #Lymph 1.7 10 0.8-3.2 #Cheyenne 0.5 10 0.0-0.8 #Eos 0.3 10 0.0-0.4 #Baso 0.1 10 0.0-0.2 Comp. Met 01/16/2023 [facility] [address] [place] [address] [phone] Glucose 84 mg/dL 70-110 BUN 13 mg/dL [...] GFR 78 >60 Laboratory test finding 01/16/[address] [facility] [place] [address] [phone] [place] 0.6 mmol/L Normal 0.6-1.2 Clinical PDF Report [id number] SEE IMAGE 1 CHOLESTEROL Less than 200mg/dl [...] Scrning Perf And Negative Co mpleted 05/22/2023 86513 Venipuncture Routine Complet ed 05/22/2023 3079F PVRP Diastolic BP 80-89 MMHG Completed 05/22/2023 3074F PVRP Systolic BP <130 mmHg C ompleted 01/17/2023 G2012 Phone Evaluation/Management By Physician 21-30 Min Completed 01/16/2023 04222 Venipuncture Routine Complet ed 06/10/2021 [id number] Mammogram Completed 01/07/2021 [id number] Colonoscopy Completed Medical Devices Description No Information [...] induced akathis ia Office Visit 01/17/2023 11:30a Sylvai murillo MD 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
[2023-10-05 17:57] LABS: Amphetamines+Metham, Urine Neg (Neg); Barbiturates, Urine Neg (Neg); Benzodiazepine, Urine Neg (Neg); Cocaine, Urine Neg (Neg); MDMA (Ecstacy), Urine Pos (Neg); Marijuana, Urine Pos (Neg); Methadone, Urine Neg (Neg); Opiate, Urine Neg (Neg); Phencyclidine, Urine Neg (Neg)
[2023-10-05 19:00] LABS: Folate (Folic Acid),Ser orPlas 12.42 ng/ml (>5.38)
[2023-10-05] MEDS ORDERED: LORazepam 0.5 MG TAB PO PRN (20:31)
[2023-10-05] MEDS ORDERED: traZODone HCL 50 MG TAB PO SCH (21:00)
[2023-10-05] MEDS ORDERED: GADOBUTROL 65ML VIAL IV ONE (21:51)
--- NOTE | 2023-10-05 22:12 | Magnetic Resonance Report ---
Exam(s): MRI HEAD W/WO Contrast IV Amt: 5ml gadavist EXAM: MR Head Without and With Intravenous Contrast CLINICAL HISTORY: Reason for exam: Intermittent confusion. TECHNIQUE: Magnetic resonance images of the head/brain without and with intravenous contrast in multiple planes. CONTRAST: Patient received 5ml gadavist of IV contrast COMPARISON: No relevant prior studies available. FINDINGS: Brain: Unremarkable. No mass. No hemorrhage. No acute infarct. Scattered nonspecific subcortical white matter changes likely representing chronic microvascular ischemic changes. No abnormal enhancement.. Ventricles: Unremarkable. No ventriculomegaly. Bones/joints: Unremarkable. No acute fracture. Sinuses: Unremarkable as visualized. No acute sinusitis. Mastoid air cells: Unremarkable as visualized. No mastoid effusion. Orbits: Unremarkable as visualized. IMPRESSION: No acute abnormality. Electronically signed by: Scott Hernández MD 10/05/23 22:11 PM
[2023-10-05] MEDS: LITHIUM CARBONATE 300 MG TAB PO SCH (22:23)
[2023-10-05] MEDS: PROPRANOLOL HCL 10 MG TAB PO SCH (22:23)
[2023-10-05] MEDS: THIAMINE HCL 100 MG TAB PO SCH (22:24)
[2023-10-06] MEDS ORDERED: ENOXAPARIN INJ 40 MG/0.4 ML SYR SQ SCH (09:00)
[2023-10-06] MEDS ORDERED: NON-FORMULARY MEDICATION (Fluticasone-Umeclidin-Vilanter [Trelegy Ellipta] 100-62.5-25 mcg INH SCH (09:00)
[2023-10-06] MEDS ORDERED: FOLIC ACID 1 MG TAB PO SCH (09:00)
[2023-10-06] MEDS ORDERED: UMECLIDINIUM/VILANTEROL 62.5/25MCG 7 PUFFS/INHALER INH SCH (09:00)
[2023-10-06] MEDS ORDERED: CYANOCOBALAMIN (B-12) 500 MCG TABLET PO SCH (09:00)
[2023-10-06] MEDS ORDERED: buPROPion XL 300 MG TABCR PO SCH (09:00)
[2023-10-06] MEDS ORDERED: FLUTICASONE FUROATE 100MCG 14 PUFFS/INHALER INH SCH (09:00)
--- NOTE | 2023-10-06 09:34 | Neurology Consultation ---
Date of Consultation October 06, 2023 Assessment & Plan (1) Gait disturbance: History of Present Illness Attending Physician: Yumi López MD History of Present Illness 63 yo female with episodic confusion and gait change for few weeks (8 weeks) in setting of recent UTI. pt now feeling much better. she feels her symptoms are similar to her robert episodes. her mri brain is negative. pt this morning feeling well and wants to go home now. chart reviewed. admission HPI: This is a 63 y/o female with bipolar disorder, PTSD, mild COPD, fibromyalgia, and other history as outlined who presented to the ED today for evaluation of episodes of confusion and gait imbalance over the last 8 weeks but worsening since a fall on [place] two weeks ago. History obtained from patient and fiance at the bedside. About eight weeks ago, pt started with episodes of confusion and gait imbalance. Pt reports these feel similar to prior episodes of robert but her fiance states that they are different in that during manic episodes, she is typically still coherent, can answer questions, and does not have trouble with her balance. Pt reports having no memory of the current episodes of confusion that she has been having, so she is not entirely sure of what is occurring. Episodes seem to start mid to late morning and last till later afternoon or dinner before resolving. Until the last few weeks, they only happened every 1-2 weeks, but since she fell on [place], the episodes have been increasing in frequency and severity. She had an episode yesterday that was particularly severe. This morning, her fiance's mom came to check on her around 10 am, and she was once again confused to they brought her to the ED for evaluation. Today's episode seemed to clear up around 1-2 pm. Her fiance describes that pt will be doing something and then won't remember what she's doing, will stare off into space, become off balance, and will be unable to answer a question coherently. At times, they have also seen her talking to people who are not there although she denies overt visual hallucinations to me. She reports her lithium dose was adjust about two months ago. She also notes suprapubic discomfort and dysuria about two weeks ago - she was treated empirically with a 10 day course of Keflex with improvement in the urinary symptoms. She was also recently on a course of prednisone for scalp itching, w rosalvah she finished three days ago. She reports rare EtOH, denies recreational substances or use of medical marijuana. She admits to a poor diet, preferring sweets and fast food, minimal consumption of fruits and vegetables. Allergies Allergy/AdvReac Type Severity Reaction Status Date / Time venom-honey bee Allergy Severe Anaphylaxis Verified 10/05/23 21:54 cephalexin Allergy Mild "itchy Verified 10/05/23 14:26 bumps" clonazepam AdvReac Mild BLACKOUTS Verified 10/05/23 14:26 Home Medications Medication Instructions Recorded Confirmed Type albuterol sulfate 90 mcg/actuation 2 puff inhalation Q4 PRN Wheezing 10/05/23 10/05/23 History aerosol inhaler bupropion HCl 300 mg 24 hr tablet, 300 mg PO DAILY 10/05/23 10/05/23 History extended release fluticasone fur. 100 mcg-umeclid 1 ea inhalation DAILY 10/05/23 10/05/23 History 62.5 mcg-vilant 25 mcg inhalat.powder (Trelegy Ellipta) ketoconazole 2 % shampoo 1 applic topical DIRECTED 10/05/23 10/05/23 History lithium carbonate 300 mg capsule 300 mg PO TID 10/05/23 10/05/23 History lorazepam 0.5 mg tablet 0.5 mg PO TID PRN Anxiety 10/05/23 10/05/23 History propranolol 10 mg tablet 10 mg PO BID 10/05/23 10/05/23 History sennosides 8.6 mg-docusate sodium 2 - 3 tab PO HS PRN Constipation 10/05/23 10/05/23 History 50 mg tablet (Senexon-S) trazodone 50 mg tablet 50 mg PO HS 10/05/23 10/05/23 History Patient History Medical History (Updated 10/05/23 @ 20:41 by Ivelisse Barron PA-C) Solitary lung nodule Ulcerative colitis Fibromyalgia Tardive dyskinesia Memory changes IBS (irritable bowel syndrome) COPD (chronic obstructive pulmonary disease) inhaler prn Bipolar disorder Spinal stenosis Surgical History History of bunionectomy of right great toe History of colonoscopy History of tooth extraction all teeth History of tonsillectomy S/P appendectomy S/P hysterectomy ADA BSO Family History Father Lung cancer Family history of diabetes mellitus Grandfather (Paternal) Family history of diabetes mellitus Other No family history of adverse response to anesthesia Social History (Updated 10/05/23 @ 20:36 by Ivelisse Barron PA-C) Smoking Status: Current some day smoker Tobacco Type: Cigarettes Cigarettes Per Day: 1-2; Second Hand Exposure: Yes; Do You Dip or Chew Tobacco: No; Hx Alcohol Use: No Hx Substance Use: No Preferred Language: Jamaican Communication Ability: Effective Curriculum Facilitator Required: No Beliefs That Will Affect Care: None Current Living Situation: Significant Other Other Information That Helps Us Care for You: No Feels Safe at Home: Yes Safety Concerns: Feels Safe At This Time Assistive Devices: None Exam (Neuro) Physical Exam: HEENT: normocephalic Neuro: Mental: AOx4, fluent speech, normal comprehension, no apraxia, no L/R confusion, no neglect CN: PERRL, Full EOM, symmetric face, intact sensation t/o face, midline T/U/P, 5/5 SCM/traps. Motor: No abnormal movements, normal tone and bulk, 5/5 t/o bilaterally Sens: intact to touch b/l grossly Coord: intact FNT b/l Gait: pt states she walked this morning without any problem or imbalance. Impression: 63 yo female with chronic episodic subjective imbalance and confusion in setting of hx of bipolar (with robert episodes) and UTI recently and substance abuse hx (pt + for marijuana but pt denies using it). mri brain negative. 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 Likely she is having psychiatric symptoms (e.g. robert) with more symptoms from having UTI recently and marijuana use. Recommendations: no need for further neuro work up at this point. avoid substance abuse. agree with psych eval call again if new question. Chart reviewed I have spent more than 50% educating patient about potential diagnosis and neurological evaluation and coordinating care with patient's treatment team. Total time spent (including chart review and coordination of care): 60 min (this includes chart review). Results & Data Vital Signs (Past 12 Hours) Vital Signs Temp Pulse Resp BP BP Pulse Ox O2 Del Method 10/06/23 07:00 36.8 C 79 16 150/87 H 97 Room Air 10/06/23 03:52 36.5 C 75 16 104/66 95 Room Air 10/05/23 22:28 36.8 C 75 18 136/91 Room Air PG Care Time/CCT Total # of Minutes Spent Total Time Spent with Patient: Total time spent is greater than 50% in coordination of care (as documented) at patient's floor/unit and/or counseling patient: Coding Level of Care Code 43448 IN/OBS CONSULT LVL 4,60M Diagnoses Gait disturbance R26.9
[2023-10-06] MEDS: THIAMINE HCL 100 MG TAB PO SCH (09:52)
[2023-10-06] MEDS: PROPRANOLOL HCL 10 MG TAB PO SCH (09:52)
[2023-10-06] MEDS: LITHIUM CARBONATE 300 MG TAB PO SCH ×2 (09:52→13:21)
--- NOTE | 2023-10-06 13:24 | Discharge Summary ---
Date of Service October 06, 2023 Admission HPI Per Admitting Provider This is a 63 y/o female with bipolar disorder, PTSD, mild COPD, fibromyalgia, and other history as outlined who presented to the ED today for evaluation of episodes of confusion and gait imbalance over the last 8 weeks but worsening since a fall on [place] two weeks ago. History obtained from patient and fiance at the bedside. About eight weeks ago, pt started with episodes of confusion and gait imbalance. Pt reports these feel similar to prior episodes of robert but her fiance states that they are different in that during manic episodes, she is typically still coherent, can answer questions, and does not have trouble with her balance. Pt reports having no memory of the current episodes of confusion that she has been having, so she is not entirely sure of what is occurring. Episodes seem to start mid to late morning and last till later afternoon or dinner before resolving. Until the last few weeks, they only happened every 1-2 weeks, but since she fell on [place], the episodes have been increasing in frequency and severity. She had an episode yesterday that was particularly severe. This morning, her fiance's mom came to check on her around 10 am, and she was once again confused to they brought her to the ED for evaluation. Today's episode seemed to clear up around 1-2 pm. Her fiance describes that pt will be doing something and then won't remember what she's doing, will stare off into space, become off balance, and will be unable to answer a question coherently. At times, they have also seen her talking to people who are not there although she denies overt visual hallucinations to me. She reports her lithium dose was adjust about two months ago. She also notes suprapubic discomfort and dysuria about two weeks ago - she was treated empirically with a 10 day course of Keflex with improvement in the urinary symptoms. She was also recently on a course of prednisone for scalp itching, which she finished three days ago. She reports rare EtOH, denies recreational substances or use of medical marijuana. She admits to a poor diet, preferring sweets and fast food, minimal consumption of fruits and vegetables. Admission Exam Per Admitting Provider Constitutional: Alert oriented x 3, flat affect Eyes: Bruise under left eye Respiratory: normal respiratory effort, lungs clear to auscultation, no wheeze, rales, rhonchi. Normal insp/exp effort, no accessory muscle use Cardiovascular: RRR, no murmur, no edema Vessels: no JVD or carotid bruit Chest: normal inspection of chest Abdomen: normal bowel sounds, soft, nontender, no hepatosplenomegaly Musculoskeletal: no cyanosis or clubbing, extremities motor strength 5/5 Skin: no rashes, warm and dry normal turgor Neurologic: PERRL, EOMI, accommodation nl, no face palsy, no dysarthria CN's II- XI intact bilaterally and moves all extremities Principal Diagnosis Episode of confusion Gait disturbance Discharge Exam GENERAL: Alert and oriented x3. NAD, on RA. HEENT: No pallor, no icterus. Pupils equal, round and reactive to light. Oral mucosa moist. NECK: No JVD, no neck masses. HEART: S1 and S2 heard. Regular rate and rhythm. No murmur, no gallop. RESPIRATORY SYSTEM: Normal AP diameter. No accessory muscle use. No wheezing, no crackles. ABDOMEN: Soft, bowel sounds present, nontender, no distention. CENTRAL NERVOUS SYSTEM: No facial droop. Speech is clear. Obeys simple commands. Moves extremities. EXTREMITIES: No edema, no erythema seen. Discharge Data Allergies Allergy/AdvReac Type Severity Reaction Status Date / Time venom-honey bee Allergy Severe Anaphylaxis Verified 10/05/23 21:54 cephalexin Allergy Mild "itchy Verified 10/05/23 14:26 bumps" clonazepam AdvReac Mild BLACKOUTS Verified 10/05/23 14:26 Consultations 10/05/23 16:10 ED Decision to Admit Stat 10/05/23 20:31 Consult Neurology Routine Consult Psychiatry Routine Ordered Studies 10/05/23 11:18 CT head/brain wo con Stat 10/05/23 17:06 MRI Brain [MR brain wo/w con] Routine Hospital Course (1) Episodic confusion: Plan Per prior attending with addendum: (1) Episodic confusion: Plan: This is a 63 y/o female with bipolar disorder, PTSD, mild COPD, fibromyalgia, and other history as outlined who presented to the ED today for evaluation of episodes of confusion and gait imbalance over the last 8 weeks but worsening since a fall on [place] two weeks ago. Pt reports her lithium dose was adjusted two months ago - level today WNL. She was recently treated for UTI with 10 day course of cephalexin and course of prednisone for scalp itching but neither of these medication courses seem to correspond with onset of patient's symptoms. Initial work-up in the ED including ammonia level, TSH, CT head, UA, CBC, BMP was negative for potential etiology. Lyme testing pending. Discussed with ED provider addition of urine tox screen in view of history of substance use, although pt denies today. - Observe on med telemetry - MRI brain to r/o prior CVA/vascular dementia as cause of symptoms - Consult neurology - pt saw [facility] [place] for memory issues - Consult psychiatry for recommendations on pt's current regimen, potential contribution of known psychiatric conditions to current symptoms - Check B12, B1, B6, folate levels - Add thiamine supplement empirically - Blood cultures to complete infectious work-up (2) Gait disturbance: Plan: Fall precautions PT/OT evaluations (3) Bipolar disorder: Plan: Continue outpatient meds for now - psych consult pending (4) COPD (chronic obstructive pulmonary disease): Plan: Chronic, stable - continue inhaler Plan Pt seen and reviewed with collaborating physician, Dr. Banerjee. Plan of care discussed and as outlined above. Code Status: Full code DVT Prophylaxis: Lovenox Addendum: Discussed with neurology, no further neurological workup. Discussed with RN, patient independently moving around in the room. PT evaluated, recommendation is home. Patient reports improvement in her symptoms significantly. She is hemodynamically stable and wants to go home. Patient denies any balance issues at this point. Reports she is at her baseline. Patient advised to refrain from recreational drugs. Discussed with psychiatry, since patient has improved it would not be prudent to change any of her medication. Patient advised to follow-up with her outpatient psychiatry for long-term management. Vitamin B12 low normal, supplement started. TSH WNL. Imagings reviewed, no acute findings. She is being discharged to home with following instruction at the point of discharge: Follow-up with your primary care physician within a week time and likely you will need labs CBC/CMP/magnesium/phosphorus. Recommend refraining from marijuana and other recreational drugs. Follow-up with your outpatient psychiatry in 2 to 4 weeks time. Take your medications as prescribed. Please make sure that you are able to get your medications today by calling your pharmacy before you leave the hospital so that your treatment continuity is not broken. Home Health Attestation I certify that this patient is under my care and that I, or a physicians assistant case manager working with me, had a face to-face encounter that meets the home health [id number] encounter requirements with this patient. The encounter with the patient was in whole, or in part, for the following medical condition, which is the primary reason for home health care (list medical condition): I certify that, based on my findings, the following services are medically necessary home health services: My clinical findings support the need for the above services because: Further, I certify that my clinical findings support that this patient is ho mebound (i.e. absences from home require considerable and taxing effort and are for medical reasons or islam services or infrequently or of short duration when for other reasons) because: Certification for Home Health Services: Based on the above findings, I certify that this patient is confined to the home and needs intermittent penitentiary care, physical therapy and/or speech therapy or continues to need occupational therapy. The patient is under my care, and I have initiated the establishment of the plan of care. This patient will be followed by a physician who will periodically review the plan of care. Total Time Total Time Spent Total Time Spent (In Minutes): 45 Discharge Plan Discharge Items Patient Disposition: Home - Self-Care Reason For Visit: INTERMITTENT CONFUSION Discharge Diagnosis: Episode of confusion Gait disturbance Activity: Resume your previous activity Non-emergency contact: Primary Care Provider Call non-emergency contact if: you have any medication questions, your symptoms worsen and your temperature is above 101.5 Follow-up/Referrals: Vic Carl PA-C [Primary Care Provider] - Diet: Heart Healthy Addtl Attending Provider Instructions: Follow-up with your primary care physician within a week time and likely you will need labs CBC/CMP/magnesium/phosphorus. Recommend refraining from marijuana and other recreational drugs. Follow-up with your outpatient psychiatry in 2 to 4 weeks time. Take your medications as prescribed. Please make sure that you are able to get your medications today by calling your pharmacy before you leave the hospital so that your treatment continuity is not broken. Pending Studies at Discharge: No Stand-Alone Forms: My [employer], Smoking Cessation Medications and DC Order Prescriptions: New cyanocobalamin (vitamin B-12) 500 mcg Tablet 500 mcg PO QAM Qty: 30 0RF folic acid 1 mg Tablet 1 mg PO QAM Qty: 30 0RF thiamine HCl (vitamin B1) 100 mg Tablet 100 mg PO QAM Qty: 30 0RF Continued ketoconazole 2 % shampoo 1 applic TOPICAL DIRECTED trazodone 50 mg tablet 50 mg PO HS lorazepam 0.5 mg tablet 0.5 mg PO TID PRN (Reason: Anxiety) lithium carbonate 300 mg capsule 300 mg PO TID albuterol sulfate 90 mcg/actuation HFA aerosol inhaler 2 puff INHALATION Q4 PRN (Reason: Wheezing) bupropion HCl 300 mg tablet extended release 24 hr 300 mg PO DAILY Trelegy Ellipta 100-62.5-25 mcg blister with device 1 ea INHALATION DAILY propranolol 10 mg tablet 10 mg PO BID sennosides-docusate sodium [Senexon-S] 8.6-50 mg tablet 2 - 3 tab PO HS PRN (Reason: Constipation) Discharge Orders: Discharge Order (Routine); Ordered 10/06/23 Ordered By: Yumi López Admission Data Admit Date/Time: 10/05/23 16:11 Attending Provider: Yumi López Admit Provider: Galo Banerjee Primary Care Provider: Vic Carl Other Providers: Galo Banerjee; Viviana Nichols; Lauren Knapp; Doug Dennison; Mateus Ramos; Shakir Chan
== END 2023-10-06 14:00 | disposition home or self-care (01) ==
LOC: ED 11:13 → EDINP 11:13 → SUATTDRO 16:11 → EDINP 20:32 → 2E 22:19